=== PATIENT | female | born 1985 | race Caucasian/White ===

== ENCOUNTER 2018-12-18 20:34 | Observation (INO) | payer OTHER ==
[~2018-12-18] VITALS: Ht 167.6 cm; Wt 103.5 kg
[~2018-12-18 20:34] MED LIST: AMLO5 PO; ASPI81CH PO; ATOR40TA PO; CARV25 PO; CLON.1; CLOP75 PO; DILT120; Diovan160 MG PO; EZET10; FURO80; Furosemide40 MG PO; LOSA50; NITR.4SL; POTCHL10ER PO; Percocet 10-321 EACH PO; ROXICODONE5 MG PO; SPIR50 PO
[2018-12-18 20:55] LABS: BASOPHILS ABSOLUTE AUTO 0.04 K/mm3 (0.00-0.23); BASOPHILS PERCENT AUTO 0 % (0-2); EOSINOPHILS ABSOLUTE AUTO 0.17 K/mm3 (0.00-0.68); EOSINOPHILS PERCENT AUTO 1 % (0-6); Hematocrit 49.6 % (33.0-51.0); Hemoglobin 16.1 g/dL (11.5-16.0); IMMATURE GRAN ABSOLUTE AUTO 0.04 K/mm3 (0.00-0.10); IMMATURE GRAN PERCENT AUTO 0 % (0-1); LYMPHOCYTES ABSOLUTE AUTO 1.84 K/mm3 (0.84-5.20); LYMPHOCYTES PERCENT AUTO 15 % (21-46); MONOCYTES ABSOLUTE AUTO 0.71 K/mm3 (0.16-1.47); MONOCYTES PERCENT AUTO 6 % (4-13); Mean Corpuscular HGB 28.3 pg (26.0-34.0); Mean Corpuscular HGB Conc 32.5 g/dL (31.5-36.5); Mean Corpuscular Volume 87 fL (80-100); Mean Platelet Volume 10.8 fL (9.1-12.4); NEUTROPHILS ABSOLUTE AUTO 9.74 K/mm3 (1.96-9.15); NEUTROPHILS PERCENT AUTO 78 % (41-73); Platelet Count 249 K/mm3 (150-400); RDW Coefficient Variation 13.9 % (11.7-14.2); Red Blood Cell Count 5.68 M/mm3 (3.80-5.20); White Blood Cell Count 12.54 K/mm3 (4.00-11.30)
[2018-12-18] MEDS ORDERED: UBID10 PO (21:11)
[2018-12-18 21:12] LABS: International Normalized Ratio 0.97; Prothrombin Time Results 10.3 Sec (9.7-11.5)
[2018-12-18 21:25] LABS: Alanine Aminotransfer (ALT/SGP 24 U/L (12-78); Albumin, Blood 3.6 g/dL (3.4-5.0); Albumin/Globulin Ratio 0.8 (0.8-1.8); Alk Phos 78 U/L (50-136); Anion Gap 8 mmol/L (6-16); Aspartate Aminotrans (AST/SGOT 16 U/L (12-37); Bilirubin, Total 0.3 mg/dL (0.1-1.0); Blood Urea Nitrogen 9 mg/dL (8-24); Bun/Creatinine Ratio 11.4 (12.0-20.0); CO2, Blood 25 mmol/L (21-32); Calcium, Blood 8.5 mg/dL (8.5-10.1); Chloride, Blood 107 mmol/L (98-108); Creatinine, Blood 0.79 mg/dL (0.40-1.00); Globulin, Blood 4.4 g/dL (2.2-4.0); Glomerular Filtration Rate >60 (60-); Glucose, Blood 97 mg/dL (70-99); Magnesium, Blood 2.3 mg/dL (1.6-2.4); Potassium, Blood 3.6 mmol/L (3.5-5.5); Sodium, Blood 140 mmol/L (136-145); Troponin I 0.018 ng/mL (0.000-0.040)
--- NOTE | 2018-12-19 01:00 | NUR ---
ARRIVAL TO ICU REPORT RECEIVED FROM QUEENIE GOLDSTEIN RN. PT ARRIVED TO ICU APPROX 2220. DR. BEAVERS CONSULTED. NEW ORDER FOR CTA AND NITRO DRIP. CTA COMPLETE, NITRO DRIP INITIATED. CHEST PAIN SLIGHTLY IMPROVED WITH DILAUDID, NO CHANGES WITH ADMINISTATRATION OF NITRO. DR. BEAVERS UPDATED ON PERSISTENT CHEST PAIN, DILAUDID ORDER CHANGED TO Q1H. VITALS STABLE WITH EXCEPTION OF ELEVATED BP. SEE FLOWSHEETS. SEE ADMISSION ASSESSMENT. PT CALLING APPROPRIATELY FOR NEEDS SINCE ARRIVAL TO UNIT.
[2018-12-19 03:24] LABS: BASOPHILS ABSOLUTE AUTO 0.04 K/mm3 (0.00-0.23); BASOPHILS PERCENT AUTO 0 % (0-2); EOSINOPHILS ABSOLUTE AUTO 0.19 K/mm3 (0.00-0.68); EOSINOPHILS PERCENT AUTO 2 % (0-6); Hemoglobin 14.3 g/dL (11.5-16.0); IMMATURE GRAN ABSOLUTE AUTO 0.03 K/mm3 (0.00-0.10); IMMATURE GRAN PERCENT AUTO 0 % (0-1); LYMPHOCYTES ABSOLUTE AUTO 2.86 K/mm3 (0.84-5.20); LYMPHOCYTES PERCENT AUTO 26 % (21-46); MONOCYTES ABSOLUTE AUTO 0.75 K/mm3 (0.16-1.47); MONOCYTES PERCENT AUTO 7 % (4-13); Mean Corpuscular HGB 27.9 pg (26.0-34.0); Mean Corpuscular HGB Conc 31.8 g/dL (31.5-36.5); Mean Corpuscular Volume 88 fL (80-100); Mean Platelet Volume 10.4 fL (9.1-12.4); NEUTROPHILS ABSOLUTE AUTO 7.36 K/mm3 (1.96-9.15); NEUTROPHILS PERCENT AUTO 65 % (41-73); Platelet Count 222 K/mm3 (150-400); RDW Coefficient Variation 13.9 % (11.7-14.2); Red Blood Cell Count 5.12 M/mm3 (3.80-5.20); White Blood Cell Count 11.23 K/mm3 (4.00-11.30)
[2018-12-19 03:43] LABS: Anion Gap 6 mmol/L (6-16); Blood Urea Nitrogen 8 mg/dL (8-24); CO2, Blood 26 mmol/L (21-32); Calcium, Blood 8.1 mg/dL (8.5-10.1); Chloride, Blood 108 mmol/L (98-108); Glomerular Filtration Rate >60 (60-); Glucose, Blood 91 mg/dL (70-99); Potassium, Blood 3.2 mmol/L (3.5-5.5); Sodium, Blood 140 mmol/L (136-145)
--- NOTE | 2018-12-19 04:00 | NUR ---
DR. NIMESH BEAVERS TO BEDSIDE FOR ASSESSMENT. UPDATED ON CONTINUED CHEST PAIN, PT'S REPORTED INTERMITTENT SWEATING, HIGH BLOOD PRESSURE AND LABS. NEW ORDER FOR LIPID PANEL LAB WITH NEXT TROPONIN AND ECHO TODAY. DR. BEAVERS ALSO REQUESTING COMPLETE RECORD FROM [facility]. DR. BEAVERS DISCUSSED POSSIBLE ANGIOGRAM TODAY IF NEEDED BUT EXPLAINS THE CONCERN SINCE PREVIOUS STENTS HAVE BEEN UNSUCCESSFUL IN PREVENTING RECURRENT PAIN. STATES HE WILL REASSESS AFTER REVIEWING RECORDS. PT INVOLVED IN CONVERSATION AND DENIES QUESTIONS AFTER CONVERSATION WITH .
--- NOTE | 2018-12-19 06:47 | NUR ---
SUMMARY SINCE DISCUSSION WITH DR. BEAVERS, PT HAS CONTINUED TO HAVE CHEST PAIN BUT ON NURSE ROUNDING HAS BEEN ASLEEP ON SEVERAL OCCASIONS. BLOOD PRESSURE IMPROVED. OTHERWISE, ASSESSMENTS UNCHANGED.
--- NOTE | 2018-12-19 07:42 | NUR ---
REPORT TO VIRGINIA VASQUEZ TO ASSUME CARE
--- NOTE | 2018-12-19 08:42 | NUR ---
PT BP NOTED TO BE SL ELEVATED SBP 140 SO NTG GTT INC TO 25 THEN 30 MCG. PT AWAKENED WITH SEVERE BROOKS AND NAUSES WITH CLIMBING BP. JAW, CHEST PAIN NOTED AT 04/25. IV DILAUDID GIVEN ALONG WITH AM MEDS AND THEN EXTRA DOSE OF DILAUDID AND AM MEDS GIVEN. PAIN REMAINS AT 02/22. ECHOCARDIAGRAM IN PROGRESS NOW. VS NOTED AND HR IS NSR 60'S. ABDIRASHID ARM IV TO BE D/C.
[2018-12-19 09:56] LABS: CHOL/HDL RATIO 3.8; Cholesterol 147 mg/dL (50-200); HDL Cholesterol 39 mg/dL (>39); LDL/HDL RATIO 1.8; Low Density Lipoprotein Chol 70 mg/dL (0-110); Triglycerides 188 mg/dL (30-140); Troponin I <0.015 ng/mL (0.000-0.040); Very Low Density Lipoprot Chol 37 mg/dL (6-28)
--- NOTE | 2018-12-19 10:47 | NUR ---
Echocardiogram completed.
--- NOTE | 2018-12-19 12:27 | NUR ---
PT L JAW PAIN REOCCURED AND MEDICATED FOR PAIN WITH MINIMAL RELIEF. VS NOTED AND NO CHEST PAIN AT THIS TIME.
[2018-12-19 12:52] LABS: U Amphetamine Screen Not Detected; U Barbituate Screen Not Detected; U Methamphetamine Screen Not Detected
[2018-12-19 12:53] LABS: U Benzodiazapine Screen DETECTED; U Buprenorphine Screen Not Detected; U Cannabinoids Screen Not Detected; U Cocaine Screen Not Detected; U Methadone Screen Not Detected; U Opiates Screen DETECTED; U Oxycodone Screen DETECTED; U Phencyclidine Screen Not Detected; U Propoxyphene Screen Not Detected
--- NOTE | 2018-12-19 17:57 | NUR ---
PT SEEMS TO BE GETTING SOME MUCH NEEDED REST. ATE SUPPER W/O DISTRESS AND TAKING LIQUIDS. PT HAS HAD CHEST PAIN TODAY BUT MOSTLY L JAW PAIN THAT IS UNCHHANGED WITH OR W/O NTG GTT THAT WAS STOPPED AT APPROX. 1415.
--- NOTE | 2018-12-19 20:15 | NUR ---
CARE ASSUMED REPORT RECEIVED, CARE ASSUMED AT 1900. AT CHANGE OF SHIFT PT ASLEEP. BP ELEVATED. OTHERWISE VITALS STABLE. CALLED INTO ROOM BY PT, REPORTING SHE WAS WOKEN BY PAIN. BP CONTINUES TO BE ELEVATED. MEDICATED WITH DILAUDID AND EVENING BLOOD PRESSURE MEDS. PT PROVIDED WITH SNACK PER REQUEST. SEE SHIFT ASSESSMENT, VITALS FLOWSHEET.
--- NOTE | 2018-12-20 06:15 | NUR ---
SUMMARY VITALS STABLE THROUGHOUT SHIFT. ASSESSMENT UNCHANGED. PT REPORTS JAW PAIN CONSTANT BUT HAS EPISODES THAT ARE MORE SEVERE AND REPORTS ALSO FEELING SHORT OF BREATH AND DIAPHORETIC WITH THESE EPISODES. PT MEDICATED UPON REQUEST. LAST NIGHT OFFERED PT PERCOCET TO ENCOURAGE LONGER LASTING RELIEF AND PT STATED SHE THOUGHT IT WOULDN'T BE EFFECTIVE BUT THAT SHE WOULD TRY IT. AFTER ADMINSTRATION OF PERCOCET AND DILAUDID AROUND 2230 PT SLEPT FOR SEVERAL HOURS, THE MOST SHE HAS SINCE SHE'S BEEN HERE. PT MEDICATED ONCE MORE AROUND 0200 FOR ONE OF THESE EPISODES WITH DILAUDID AND HAS SLEPT SINCE THEN. PT HAS CALLED APPROPRIATELY FOR NEEDS.
--- NOTE | 2018-12-20 07:07 | NUR ---
REPORT TO VIRGINIA VASQUEZ TO ASSUME CARE
--- NOTE | 2018-12-20 10:29 | NUR ---
2036 PT CALLED FOR ASSISTANCE WITH PAIN SHE IS HAVING L JAW AND CHEST PAIN THAT IS 9-10/10. PT STATES THAT WITH PO MEDS LAST NOC AND IV THAT PAIN WAS SL IMPORVED, HOWEVER SHE IS C/O PAIN THAT IS SAME IN CHARACTER LAST 24 HOURS BUT NO DIAPHORESIS OR SOB. BP IS ELEVATED AND DR LACEY NOTIFIED OF THIS AND CHARACTER OF CHEST PAIN.
--- NOTE | 2018-12-20 12:58 | NUR ---
DISCHARGE REVIEWED DISCHARGE INSTRUCTIONS WITH PT. SHE DISPLAYS UNDERSTANDING. IV REMOVED. PT AMBULATED TO EXIT WITH MOTHER.
== END 2018-12-20 12:58 | disposition home or self-care (01) ==
LOC: ER 20:34 → ICUW 20:35
PROVIDERS: Emergency Medicine; ADMIT Family Medicine
DX: R07.9 Chest pain, unspecified (principal); I25.10 Atherosclerotic heart disease of native coronary artery without angina pectoris; I10 Essential (primary) hypertension; D72.829 Elevated white blood cell count, unspecified; D64.9 Anemia, unspecified; Z88.8 Allergy status to other drugs, medicaments and biological substances; Z95.5 Presence of coronary angioplasty implant and graft; Z88.0 Allergy status to penicillin; Z88.5 Allergy status to narcotic agent; Z88.6 Allergy status to analgesic agent; Z79.82 Long term (current) use of aspirin; Z79.899 Other long term (current) drug therapy; Z87.891 Personal history of nicotine dependence
CPT/HCPCS: 36415; 71045; 71275; 74175; 80048; 80053; 80061; 83735; 84484; 85025; 85610; 85730; 93005; 93010; 93308; 93321; 96374; 96376; 99285-25; J1170; J1650; Q9967

== ENCOUNTER 2019-03-06 22:35 | Observation (INO) | payer OTHER ==
[~2019-03-06] VITALS: Ht 167.6 cm; Wt 98.3 kg
[~2019-03-06 22:35] MED LIST changes: +UBID10 PO
[2019-03-06] MEDS ORDERED: NITR.4SL SL (23:06)
[2019-03-06 23:11] LABS: BASOPHILS ABSOLUTE AUTO 0.05 K/mm3 (0.00-0.23); BASOPHILS PERCENT AUTO 1 % (0-2); EOSINOPHILS ABSOLUTE AUTO 0.22 K/mm3 (0.00-0.68); EOSINOPHILS PERCENT AUTO 2 % (0-6); Hematocrit 47.6 % (33.0-51.0); Hemoglobin 15.2 g/dL (11.5-16.0); IMMATURE GRAN ABSOLUTE AUTO 0.04 K/mm3 (0.00-0.10); IMMATURE GRAN PERCENT AUTO 0 % (0-1); LYMPHOCYTES ABSOLUTE AUTO 2.19 K/mm3 (0.84-5.20); LYMPHOCYTES PERCENT AUTO 20 % (21-46); MONOCYTES ABSOLUTE AUTO 0.87 K/mm3 (0.16-1.47); MONOCYTES PERCENT AUTO 8 % (4-13); Mean Corpuscular HGB Conc 31.9 g/dL (31.5-36.5); Mean Corpuscular Volume 88 fL (80-100); Mean Platelet Volume 10.6 fL (9.1-12.4); NEUTROPHILS ABSOLUTE AUTO 7.65 K/mm3 (1.96-9.15); NEUTROPHILS PERCENT AUTO 69 % (41-73); Platelet Count 258 K/mm3 (150-400); RDW Coefficient Variation 14.6 % (11.7-14.2); RDW Standard Deviation 46.6 fL (35.1-46.3); Red Blood Cell Count 5.42 M/mm3 (3.80-5.20); White Blood Cell Count 11.02 K/mm3 (4.00-11.30)
[2019-03-06 23:31] LABS: Alanine Aminotransfer (ALT/SGP 20 U/L (12-78); Albumin, Blood 3.7 g/dL (3.4-5.0); Albumin/Globulin Ratio 0.8 (0.8-1.8); Alk Phos 80 U/L (50-136); Anion Gap 6 mmol/L (6-16); Aspartate Aminotrans (AST/SGOT 14 U/L (12-37); Bilirubin, Total 0.5 mg/dL (0.1-1.0); Blood Urea Nitrogen 12 mg/dL (8-24); Bun/Creatinine Ratio 12.5 (12.0-20.0); CO2, Blood 25 mmol/L (21-32); Calcium, Blood 9.8 mg/dL (8.5-10.1); Chloride, Blood 108 mmol/L (98-108); Creatinine, Blood 0.96 mg/dL (0.40-1.00); Globulin, Blood 4.5 g/dL (2.2-4.0); Glomerular Filtration Rate >60 (60-); Glucose, Blood 89 mg/dL (70-99); Potassium, Blood 3.5 mmol/L (3.5-5.5); Sodium, Blood 139 mmol/L (136-145); Total Protein, Blood 8.2 g/dL (6.4-8.2); Troponin I <0.015 ng/mL (0.000-0.040)
--- NOTE | 2019-03-07 03:00 | NUR ---
PT ADMITTED TO ICU-6 FROM ER. PT W NTG INFUSING AT 50MCG/MIN ON ARRIVAL, PT CO PAIN IN CHEST BACK & L ARM, ALSO JAW, NECK & CO HEADACHE. BP IS ELEVATED, AND NTG WAS INCREASED TO 70MCG/MIN. PT ALSO MED W LABETALOL 10MG. DR WELLS NOTIFIED THAT PT STATES SHE TOOK 8 TYLENOL TABS YESTERDAY & NOT ABLE TO TAKE MORE TYLENOL. PT IS ALLERGIC TO TORADOL. ORDER REC'D FOR MORPHINE. PT HAS BEEN MED. PT STATES MINIMAL RELIEF, IMPROVES PAIN TO 9/10. DENIES NAUSEA, NO DIAPHORESIS. MONITOR SHOWS SR, NO ECTOPY.
--- NOTE | 2019-03-07 05:30 | NUR ---
BP IS IMPROVED, NTG CONT AT 70MCG. PT HAS BEEN MED W MS 2MGX2. LIGHTS OFF, CURTAINS DRAWN, PT IS RESTING QUIETLY. WHEN AWAKE, CONT TO CO CHEST PAIN 04/25. NO VOID THIS SHIFT. CONT TO MONITOR.
[2019-03-07 07:03] LABS: Hematocrit 40.7 % (33.0-51.0); Hemoglobin 12.9 g/dL (11.5-16.0); Mean Corpuscular HGB 28.2 pg (26.0-34.0); Mean Corpuscular HGB Conc 31.7 g/dL (31.5-36.5); Mean Corpuscular Volume 89 fL (80-100); Mean Platelet Volume 10.3 fL (9.1-12.4); Platelet Count 210 K/mm3 (150-400); RDW Coefficient Variation 14.6 % (11.7-14.2); RDW Standard Deviation 46.9 fL (35.1-46.3); Red Blood Cell Count 4.58 M/mm3 (3.80-5.20); White Blood Cell Count 9.34 K/mm3 (4.00-11.30)
--- NOTE | 2019-03-07 07:30 | NUR ---
BEGINNING OF SHIFT Assumed care at 0700 with Reanna COLEMAN. Bedside report received from Betzy COLEMAN. Pt on nitro drip at 70 mcg/min. SBP 160s-170s. Pt resting in bed, states chest pain 10/10 that has not been alleviated despite all interventions.
[2019-03-07 07:36] LABS: Alanine Aminotransfer (ALT/SGP 18 U/L (12-78); Albumin, Blood 3.2 g/dL (3.4-5.0); Albumin/Globulin Ratio 0.9 (0.8-1.8); Alk Phos 61 U/L (50-136); Anion Gap 5 mmol/L (6-16); Aspartate Aminotrans (AST/SGOT 13 U/L (12-37); Bilirubin, Total 0.5 mg/dL (0.1-1.0); Blood Urea Nitrogen 12 mg/dL (8-24); Bun/Creatinine Ratio 12.1 (12.0-20.0); CO2, Blood 25 mmol/L (21-32); Calcium, Blood 8.6 mg/dL (8.5-10.1); Chloride, Blood 108 mmol/L (98-108); Creatinine, Blood 0.99 mg/dL (0.40-1.00); Globulin, Blood 3.7 g/dL (2.2-4.0); Glomerular Filtration Rate >60 (60-); Glucose, Blood 86 mg/dL (70-99); Potassium, Blood 3.2 mmol/L (3.5-5.5); Sodium, Blood 138 mmol/L (136-145); Total Protein, Blood 6.9 g/dL (6.4-8.2); Troponin I 0.019 ng/mL (0.000-0.040)
--- NOTE | 2019-03-07 10:19 | NUR ---
UPDATE AM meds administerd. SBP 140s-150s. Pt asleep in bed. Nitro drip titrated down to 60 mcg/min.
--- NOTE | 2019-03-07 11:43 | NUR ---
UPDATE Nitro drip down to 30 mcg/min. SBP 130s-140s. Pt states she missed taking her medications for one day, because the pharmacy had not yet refilled them. Pt states she constantly has chest pain at baseline. Pt states concern over jaw pain, and states "I only have jaw pain when I have blockages." Educated pt on nitro drip and action for chest pain. Pt states "Nitro doesn't do anything for me. I've taken too much of it. I've done the patches, pills; I was on isosorbide". Plan to titrate nitro drip off. Pt verbalizes agreement and states "All nitro does is make me sick". Pt states jaw pain started while she was camping during the previous weekend, prior to her missing a dose of medication.
[2019-03-07 13:15] LABS: U Amphetamine Screen Not Detected; U Barbituate Screen Not Detected; U Methamphetamine Screen Not Detected
[2019-03-07 13:16] LABS: U Benzodiazapine Screen DETECTED; U Buprenorphine Screen Not Detected; U Cannabinoids Screen Not Detected; U Cocaine Screen Not Detected; U Methadone Screen Not Detected; U Opiates Screen DETECTED; U Oxycodone Screen DETECTED; U Phencyclidine Screen Not Detected; U Propoxyphene Screen Not Detected
--- NOTE | 2019-03-07 13:35 | NUR ---
Initial Visit: Palliative Care Consult for Cardiac, Psych/Soc/Moral Distress. Pt is A&O and reports 10/10 pain in her jaw, chest, and left arm. She reports current home pain regimen of hydrocodone and nitroquik does not manage pain. Pt reports 3/7 dyspnea at rest and reports worsening SOB with exertion. Pt denies anxiety but non verbal indicators of anxiety noted, possibly from pain. Pt reports managing her anxiety through meditation. Encouraged Pt to express fears and concerns. Listened as Pt expressed frustration regarding not finding relief from symptoms and feels needing more answers. She reports she has not been able to get back in with her chief dog license inspector Dr Hogan and office does not return her phone calls. She also reports [facility] has not been beneficial in helping find answers. Listened as she explained having relief for only a few months after bypass surgery. Pt reports being told symptoms can be contributed to her vessels marysol and expanding constantly. Pt reports completing cardiac rehab 4 times and last was 1 year ago. She reports heart transplant has been briefly mentioned in the past but was told she may not be a candidate due to RH factor. Pt reports frustration with not finding answers and this RN validated her frustrations. Pt lives is raising a child and living with her parents in [place]. She states her goals are finding answers to her heart problem with symptom management. Called and spoke with Dr Chapa and reported little benefit from nitroquick and discussed other options. Palliative Care will remain available.
--- NOTE | 2019-03-07 17:06 | NUR ---
Pal Spiritual Care inital note: Nat was alone in room and talkative. She expressed frustration and fear that an answer for her chronic pain is elusive. She denies mistreating her body with drugs or alcohol. It appears seeking medical treatment has become a burden. "It has taken over my entire life." But she is not ready to "give up." Nat tells me she is tired of fighting for medical attention/treatments, and she feels physicians don't beleive her because of her age. It appeared to do Nat some good to be heard and understood. She is non-nondenominational. She began to become tearful, but abruptly stopped herself. When asked why she did this, she told me that she was told by a physician not to get too sad, angry, frustrated b/c these emotions affect her heart. "I have trained myself to feel nothing." Clearly Nat would benefit from on-going emotional counseling. I will continue to see Nat as schedule permits.
--- NOTE | 2019-03-07 17:35 | NUR ---
SHIFT SUMMARY Case discussed with palliative care. Hans RN and Naya RN in to see patient. No acute changes t/o shift. Pt continues to report unrelieved pain. Dr Chapa in to see pt this afternoon. EKG obtained to compare with EKG done on admit. Reviewed with Dr Norman. Pt told Dr Chapa she would like to be seen by sugarcane research technician. Consult ordered. Pt okay for PCU status per Dr Chapa. Dr Eaton in to see pt shortly afterwards. Report from most recent coronary angiogram received from [facility]. Report reviewed by Dr Durand. Images from cath request. Unable to be digitally sent. Will be delivered by facility tomorrow. Dr Eaton aware. No events per youth nutritional monitor. Pt on room air. Will continue to closely monitor until care handoff and bedside report with oncoming RN.
[2019-03-07 19:21] LABS: CPK Creatine Kinase 34 U/L (26-193); Troponin I <0.015 ng/mL (0.000-0.040)
--- NOTE | 2019-03-07 19:44 | NUR ---
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
--- NOTE | 2019-03-08 05:53 | NUR ---
SHIFT SUMMARY: PT HAS BEEN MEDICATED NUMEROUS TIMES FOR PAIN. THE LAST TIME WAS WITH DILAUDID WHICH HELD THE PAIN DOWN SO SHE COULD REST A BIT. STATES THAT SHE SLEPT OFF AND ON. VSS. HAS NOT NEEDED ANY PRN MEDICATION FOR HTN.
--- NOTE | 2019-03-08 09:00 | NUR ---
BEGINNING OF SHIFT Assumed care of pt at 0700 with Brooke COLEMAN. Report received from Radha COLEMAN. Pt sleeping in bed at time of report. Plan of care discussed with Dr Eaton this AM. Films from angiogram to be physically delivered to facility this shift, from [facility]. Plan of care discussed with Dr Nicholas. No new orders at this time. SpO2 95% or greater RA. SB-SR per monitor with HR averaging between 55 and 65. Bed in lowest position. Call light in reach. Pt denies need at this time.
--- NOTE | 2019-03-08 12:25 | NUR ---
UPDATE Medical records request discussed with Guerrero Hastings. Films to be received early this afternoon.
--- NOTE | 2019-03-08 12:28 | NUR ---
MEDICATION COMPLIANCE During AM med pass, pt states "I haven't taken my water pills in over a month. I haven't needed them." This RN inquires if the diuretics are prescribed to be taken as needed. Pt states "No. But I haven't needed them." This RN educates pt on importance of taking diuretics. She states "Well I haven't had any swelling". This RN educated about shortness of breath and CHF exacerbation. Pt states "Well I haven't been able to get them from my pharmacy". She also states "I was taking samples". Pt educated that shortness of breath and chest pain are possible symptoms of CHF exacerbation. Educated pt that BNP was elevated on admit. Pt states "My BNP is always in the 700s, I'm told." Pt again states difficulty obtaining diuretics from pharmacy and details changing pharmacies due to this issue. Educated on necessity for diuresis with CHF exacerbation and reminded pt that she states her EF has been as low as 25%.
--- NOTE | 2019-03-08 14:15 | NUR ---
ELAYNE COLEMAN TO ASSUME CARE Report given. Pt resting in room at this time.
--- NOTE | 2019-03-08 14:21 | NUR ---
RECEIVED REPORT FROM AMISHA KRISHNA RN, ASSUMED CARE, PATIENT IS RESTING QUIETLY IN ROOM, CALL LIGHT IN REACH, WILL CONTINUE TO MONITOR.
--- NOTE | 2019-03-08 16:10 | NUR ---
Patient wa given written discharge orders from Dr Nicholas. She was medicated 10/ right chest pain. She got dresssed and we reviewed discharge and follow up referral. She returned understanding of information and stated she will follow up with marti tomorrow. Her IV removed intact and site WNL's. She was taken to vehicle by wheelchair and went home POV.
== END 2019-03-08 16:00 | disposition home or self-care (01) ==
LOC: ER 22:35 → ICUW 22:36 → ER 03-07 00:10 → ICUE 03-07 00:10 → ICUW 03-07 00:10 → ICUE 03-07 01:30 → ICUW 03-07 01:30 → ICUE 03-07 01:31
PROVIDERS: Physician Assistant; ADMIT Internal Medicine
DX: R07.89 Other chest pain (principal); I25.10 Atherosclerotic heart disease of native coronary artery without angina pectoris; I11.0 Hypertensive heart disease with heart failure; I50.22 Chronic systolic (congestive) heart failure; I16.1 Hypertensive emergency; E66.9 Obesity, unspecified; I25.5 Ischemic cardiomyopathy; I25.2 Old myocardial infarction; Z95.1 Presence of aortocoronary bypass graft; Z95.5 Presence of coronary angioplasty implant and graft; Z79.899 Other long term (current) drug therapy; Z68.33 Body mass index [BMI] 33.0-33.9, adult; Z79.82 Long term (current) use of aspirin; Z79.891 Long term (current) use of opiate analgesic; Z86.73 Personal history of transient ischemic attack (TIA), and cerebral infarction without residual deficits; Z90.49 Acquired absence of other specified parts of digestive tract; Z91.19 Patient's noncompliance with other medical treatment and regimen; Z88.8 Allergy status to other drugs, medicaments and biological substances; Z88.0 Allergy status to penicillin; Z88.5 Allergy status to narcotic agent
CPT/HCPCS: 36415; 71045; 80053; 82550; 83880; 84484; 85025; 85027; 93005; 93010; 93308; 93321; 96365; 96372; 96375; 96376; 99285-25; G0378; J1170; J1650; J2270; J3010

== ENCOUNTER 2019-04-02 12:49 | Emergency (ER) | payer OTHER ==
[~2019-04-02] VITALS: Ht 162.6 cm; Wt 74.8 kg
[~2019-04-02 12:49] MED LIST changes: +NITR.4SL SL
[2019-04-02] MEDS ORDERED: OMEPRAZOLE20 MG PO (13:35)
[2019-04-02 13:37] LABS: BASOPHILS ABSOLUTE AUTO 0.03 K/mm3 (0.00-0.23); BASOPHILS PERCENT AUTO 0 % (0-2); EOSINOPHILS ABSOLUTE AUTO 0.25 K/mm3 (0.00-0.68); EOSINOPHILS PERCENT AUTO 2 % (0-6); Hematocrit 47.8 % (33.0-51.0); Hemoglobin 15.5 g/dL (11.5-16.0); IMMATURE GRAN ABSOLUTE AUTO 0.03 K/mm3 (0.00-0.10); IMMATURE GRAN PERCENT AUTO 0 % (0-1); LYMPHOCYTES ABSOLUTE AUTO 1.95 K/mm3 (0.84-5.20); LYMPHOCYTES PERCENT AUTO 18 % (21-46); MONOCYTES ABSOLUTE AUTO 0.85 K/mm3 (0.16-1.47); MONOCYTES PERCENT AUTO 8 % (4-13); Mean Corpuscular HGB 28.2 pg (26.0-34.0); Mean Corpuscular HGB Conc 32.4 g/dL (31.5-36.5); Mean Corpuscular Volume 87 fL (80-100); NEUTROPHILS ABSOLUTE AUTO 7.72 K/mm3 (1.96-9.15); NEUTROPHILS PERCENT AUTO 71 % (41-73); RDW Coefficient Variation 14.3 % (11.7-14.2); Red Blood Cell Count 5.49 M/mm3 (3.80-5.20); White Blood Cell Count 10.83 K/mm3 (4.00-11.30)
[2019-04-02 13:40] LABS: Mean Platelet Volume 10.9 fL (9.1-12.4); Platelet Count 227 K/mm3 (150-400)
[2019-04-02 14:03] LABS: Alanine Aminotransfer (ALT/SGP 24 U/L (12-78); Albumin, Blood 3.6 g/dL (3.4-5.0); Albumin/Globulin Ratio 0.8 (0.8-1.8); Alk Phos 77 U/L (50-136); Anion Gap 5 mmol/L (6-16); Aspartate Aminotrans (AST/SGOT 27 U/L (12-37); Bilirubin, Total 0.6 mg/dL (0.1-1.0); Blood Urea Nitrogen 10 mg/dL (8-24); Bun/Creatinine Ratio 11.6 (12.0-20.0); CO2, Blood 26 mmol/L (21-32); Chloride, Blood 106 mmol/L (98-108); Creatinine, Blood 0.86 mg/dL (0.40-1.00); Globulin, Blood 4.5 g/dL (2.2-4.0); Glomerular Filtration Rate >60 (60-); Glucose, Blood 88 mg/dL (70-99); Potassium, Blood 3.9 mmol/L (3.5-5.5); Sodium, Blood 137 mmol/L (136-145); Total Protein, Blood 8.1 g/dL (6.4-8.2); Troponin I <0.015 ng/mL (0.000-0.040)
== END 2019-04-02 17:10 | disposition home or self-care (01) ==
LOC: ER 12:49
PROVIDERS: Emergency Medicine
DX: R07.89 Other chest pain (principal); I11.0 Hypertensive heart disease with heart failure; I50.20 Unspecified systolic (congestive) heart failure; I25.10 Atherosclerotic heart disease of native coronary artery without angina pectoris; I25.2 Old myocardial infarction; F41.9 Anxiety disorder, unspecified; Z87.891 Personal history of nicotine dependence; Z95.1 Presence of aortocoronary bypass graft; Z88.6 Allergy status to analgesic agent; Z88.0 Allergy status to penicillin; Z79.02 Long term (current) use of antithrombotics/antiplatelets; Z79.891 Long term (current) use of opiate analgesic
CPT/HCPCS: 36415; 71046; 80053; 84484; 85025; 93005; 93010; 96374; 96375; 96376; 99285-25; C9113; J1170

== ENCOUNTER 2019-12-10 12:54 | Emergency (ER) | payer OTHER ==
[~2019-12-10] VITALS: Ht 167.6 cm; Wt 102.1 kg
[~2019-12-10 12:54] MED LIST changes: +OMEPRAZOLE20 MG PO
[2019-12-10 13:40] LABS: BASOPHILS ABSOLUTE AUTO 0.06 K/mm3 (0.00-0.23); BASOPHILS PERCENT AUTO 1 % (0-2); EOSINOPHILS ABSOLUTE AUTO 0.17 K/mm3 (0.00-0.68); EOSINOPHILS PERCENT AUTO 1 % (0-6); Hematocrit 50.2 % (33.0-51.0); IMMATURE GRAN ABSOLUTE AUTO 0.03 K/mm3 (0.00-0.10); IMMATURE GRAN PERCENT AUTO 0 % (0-1); LYMPHOCYTES PERCENT AUTO 18 % (21-46); MONOCYTES ABSOLUTE AUTO 0.83 K/mm3 (0.16-1.47); MONOCYTES PERCENT AUTO 7 % (4-13); Mean Corpuscular HGB 28.1 pg (26.0-34.0); Mean Corpuscular HGB Conc 31.9 g/dL (31.5-36.5); Mean Corpuscular Volume 88 fL (80-100); Mean Platelet Volume 10.3 fL (9.1-12.4); NEUTROPHILS ABSOLUTE AUTO 8.79 K/mm3 (1.96-9.15); NEUTROPHILS PERCENT AUTO 73 % (41-73); Platelet Count 226 K/mm3 (150-400); RDW Coefficient Variation 14.1 % (11.7-14.2); RDW Standard Deviation 45.4 fL (35.1-46.3); Red Blood Cell Count 5.69 M/mm3 (3.80-5.20); White Blood Cell Count 11.98 K/mm3 (4.00-11.30)
[2019-12-10 13:55] LABS: Anion Gap 7 mmol/L (6-16); Blood Urea Nitrogen 11 mg/dL (8-24); Bun/Creatinine Ratio 12.3 (12.0-20.0); CO2, Blood 22 mmol/L (21-32); Chloride, Blood 107 mmol/L (98-108); Creatinine, Blood 0.89 mg/dL (0.40-1.00); Glomerular Filtration Rate >60 (60-); Glucose, Blood 104 mg/dL (70-99); Sodium, Blood 136 mmol/L (136-145); Troponin I <0.015 ng/mL (0.000-0.040)
== END 2019-12-10 15:48 | disposition home or self-care (01) ==
LOC: ER 12:54
PROVIDERS: Emergency Medicine
DX: I16.0 Hypertensive urgency (principal); F41.9 Anxiety disorder, unspecified; I11.0 Hypertensive heart disease with heart failure; I50.9 Heart failure, unspecified; I25.2 Old myocardial infarction; I25.10 Atherosclerotic heart disease of native coronary artery without angina pectoris; Z88.8 Allergy status to other drugs, medicaments and biological substances; Z88.0 Allergy status to penicillin; Z79.899 Other long term (current) drug therapy; Z79.02 Long term (current) use of antithrombotics/antiplatelets; Z86.73 Personal history of transient ischemic attack (TIA), and cerebral infarction without residual deficits; Z87.891 Personal history of nicotine dependence
CPT/HCPCS: 36415; 71045; 80048; 83880; 84484; 85025; 93005; 93010; 96374; 96376; 99285-25; J1170

== ENCOUNTER 2020-04-24 13:51 | Observation (INO) | payer OTHER ==
[~2020-04-24] VITALS: Ht 167.6 cm; Wt 103.0 kg
[~2020-04-24 13:51] MED LIST changes: +AMLODIPINE BESYL5 MG PO; +Acetaminophen325 M1 PO; +Aspir 8181 MG PO; +Ativan1 MG PO; +DOXY100 PO; +FAMO20 PO; +Lamotrigine25 MG PO; +METR500 PO; +PLAVIX75 MG PO
[2020-04-24] MEDS ORDERED: AMLO5 PO (14:08)
[2020-04-24] MEDS ORDERED: LAMO25 (14:09)
[2020-04-24 14:22] LABS: BASOPHILS ABSOLUTE AUTO 0.03 K/mm3 (0.00-0.23); BASOPHILS PERCENT AUTO 0 % (0-2); EOSINOPHILS ABSOLUTE AUTO 0.15 K/mm3 (0.00-0.68); EOSINOPHILS PERCENT AUTO 1 % (0-6); IMMATURE GRAN ABSOLUTE AUTO 0.03 K/mm3 (0.00-0.10); IMMATURE GRAN PERCENT AUTO 0 % (0-1); LYMPHOCYTES PERCENT AUTO 13 % (21-46); MONOCYTES PERCENT AUTO 7 % (4-13); Mean Corpuscular HGB 28.2 pg (26.0-34.0); Mean Corpuscular HGB Conc 31.5 g/dL (31.5-36.5); Mean Corpuscular Volume 90 fL (80-100); Mean Platelet Volume 10.8 fL (9.1-12.4); NEUTROPHILS ABSOLUTE AUTO 8.46 K/mm3 (1.96-9.15); NEUTROPHILS PERCENT AUTO 79 % (41-73); Platelet Count 213 K/mm3 (150-400); RDW Coefficient Variation 13.9 % (11.7-14.2); Red Blood Cell Count 6.03 M/mm3 (3.80-5.20); White Blood Cell Count 10.77 K/mm3 (4.00-11.30)
[2020-04-24 14:37] LABS: Prothrombin Time Results 10.7 Sec (9.7-11.5)
[2020-04-24 14:48] LABS: Alanine Aminotransfer (ALT/SGP 27 U/L (12-78); Albumin, Blood 3.9 g/dL (3.4-5.0); Albumin/Globulin Ratio 0.8 (0.8-1.8); Alk Phos 82 U/L (50-136); Anion Gap 7 mmol/L (6-16); Aspartate Aminotrans (AST/SGOT 16 U/L (12-37); Bilirubin, Total 0.5 mg/dL (0.1-1.0); Blood Urea Nitrogen 12 mg/dL (8-24); Bun/Creatinine Ratio 12.6 (12.0-20.0); CO2, Blood 23 mmol/L (21-32); Calcium, Blood 9.5 mg/dL (8.5-10.1); Chloride, Blood 107 mmol/L (98-108); Creatinine, Blood 0.95 mg/dL (0.40-1.00); Globulin, Blood 4.9 g/dL (2.2-4.0); Glomerular Filtration Rate >60 (60-); Glucose, Blood 107 mg/dL (70-99); Potassium, Blood 4.8 mmol/L (3.5-5.5); Sodium, Blood 137 mmol/L (136-145); Total Protein, Blood 8.8 g/dL (6.4-8.2); Troponin I 0.026 ng/mL (0.000-0.040)
[2020-04-24] MEDS ORDERED: ISOSORBIDE MONO60 MG PO (16:27)
[2020-04-24] MEDS ORDERED: FUROSEMIDE20 MG PO (16:27)
[2020-04-24] MEDS ORDERED: Lamotrigine25 MG PO (16:28)
[2020-04-24] MEDS ORDERED: VALSARTAN160 MG PO (16:28)
[2020-04-24 18:29] LABS: Source, Urine Clean Catch
[2020-04-24 18:39] LABS: Bilirubin, Urine Neg (Neg); Blood, Urine Neg (Neg); Glucose Qualitative, Urine Neg (Neg); Ketones, Urine Neg (Neg); Leukocyte Esterase, Urine Neg (Neg); Nitrite, Urine Neg (Neg); Protein, Urine Neg (Neg); Specific Gravity, Urine 1.005 (1.003-1.022); Urobilinogen, Urine NORM (Normal)
[2020-04-24 18:54] LABS: Appearance, Urine Clear (Clear); Color, Urine Pale Yellow (P-Yellow); U Amphetamine Screen Not Detected; U Barbituate Screen Not Detected; U Benzodiazapine Screen Not Detected; U Buprenorphine Screen Not Detected; U Cannabinoids Screen Not Detected; U Cocaine Screen Not Detected; U Methadone Screen Not Detected; U Methamphetamine Screen Not Detected; U Opiates Screen Not Detected; U Oxycodone Screen DETECTED; U Phencyclidine Screen Not Detected; U Propoxyphene Screen Not Detected
--- NOTE | 2020-04-24 20:00 | NUR ---
RECEIVED REPORT FROM ANTHONY VU RN. PT TRANSPORTED TO MEDICAL FLOOR VIA GURNEY, TRANSFERRED SELF TO HOSPITAL BED. NO S/S ACUTE DISTRESS NOTED. PT VISIBLY FRUSTRATED REGARDING HER PAIN MANAGEMENT, DISCUSSED PT HOME PAIN MANAGEMENT REGIMEN. ORIENTED PT TO ROOM AND UNIT. CALL LIGHT, POSSESSIONS IN REACH. WILL SPEAK TO HOSPITALIST REGARDING PT'S HOME PAIN MANAGEMENT REGIMEN.
[2020-04-24] MEDS ORDERED: PERCOCET 10-321 EAC2 PO (20:08)
--- NOTE | 2020-04-24 20:20 | NUR ---
SPOKE TO DR. WELLS REGARDING PT'S HOME PAIN MANAGEMENT REGIMEN. ORDERS RECEIVED. CONTINUE TO MONITOR.
--- NOTE | 2020-04-24 20:44 | NUR ---
MEDICATED PT PER EMAR PERCOCET 10MG/325MG PER PT'S PAIN REGIME AT HOME. TAKES THIS DOSE EVERY FOUR HOURS FOR PAIN IN HER STERNUM AREA FROM A RECENT HEART SURGERY. PT STATES IT'S NOT HEALING PROPERLY AND HER DR PUT HER ON THIS PAIN REGIME. WILL MONITOR. CALL LT IN REACH.
[2020-04-24 22:53] LABS: CPK Creatine Kinase 45 U/L (26-193)
[2020-04-25 05:13] LABS: BASOPHILS ABSOLUTE AUTO 0.05 K/mm3 (0.00-0.23); BASOPHILS PERCENT AUTO 1 % (0-2); EOSINOPHILS ABSOLUTE AUTO 0.21 K/mm3 (0.00-0.68); EOSINOPHILS PERCENT AUTO 2 % (0-6); Hematocrit 46.1 % (33.0-51.0); Hemoglobin 14.8 g/dL (11.5-16.0); IMMATURE GRAN ABSOLUTE AUTO 0.03 K/mm3 (0.00-0.10); IMMATURE GRAN PERCENT AUTO 0 % (0-1); LYMPHOCYTES ABSOLUTE AUTO 2.16 K/mm3 (0.84-5.20); LYMPHOCYTES PERCENT AUTO 20 % (21-46); MONOCYTES PERCENT AUTO 10 % (4-13); Mean Corpuscular HGB 28.7 pg (26.0-34.0); Mean Corpuscular HGB Conc 32.1 g/dL (31.5-36.5); Mean Corpuscular Volume 90 fL (80-100); Mean Platelet Volume 11.1 fL (9.1-12.4); NEUTROPHILS ABSOLUTE AUTO 7.49 K/mm3 (1.96-9.15); NEUTROPHILS PERCENT AUTO 68 % (41-73); Platelet Count 209 K/mm3 (150-400); RDW Coefficient Variation 13.9 % (11.7-14.2); RDW Standard Deviation 46.2 fL (35.1-46.3); Red Blood Cell Count 5.15 M/mm3 (3.80-5.20); White Blood Cell Count 11.04 K/mm3 (4.00-11.30)
[2020-04-25 05:44] LABS: Troponin I 0.028 ng/mL (0.000-0.040)
[2020-04-25 05:48] LABS: Alanine Aminotransfer (ALT/SGP 16 U/L (12-78); Albumin, Blood 3.5 g/dL (3.4-5.0); Albumin/Globulin Ratio 0.9 (0.8-1.8); Alk Phos 71 U/L (50-136); Anion Gap 6 mmol/L (6-16); Aspartate Aminotrans (AST/SGOT 6 U/L (12-37); Bilirubin, Total 0.4 mg/dL (0.1-1.0); Blood Urea Nitrogen 13 mg/dL (8-24); Bun/Creatinine Ratio 13.4 (12.0-20.0); CO2, Blood 25 mmol/L (21-32); Calcium, Blood 8.6 mg/dL (8.5-10.1); Chloride, Blood 107 mmol/L (98-108); Creatinine, Blood 0.97 mg/dL (0.40-1.00); Globulin, Blood 3.8 g/dL (2.2-4.0); Glomerular Filtration Rate >60 (60-); Glucose, Blood 94 mg/dL (70-99); Potassium, Blood 3.5 mmol/L (3.5-5.5); Sodium, Blood 138 mmol/L (136-145); Total Protein, Blood 7.3 g/dL (6.4-8.2)
--- NOTE | 2020-04-25 06:44 | NUR ---
SHIFT SUMMARY PT ASLEEP AT THIS TIME, WAS UP MOST OF THE NIGHT SINCE ARRIVAL TO MEDICAL FLOOR. NEURO STATUS REMAINS AT BASELINE, NO ACUTE CHANGES NOTED. VSS. RESPS EVEN AND UNLABORED. PAIN MANAGED PER HOME REGIME, PT REPORTED INCREASED PAIN RELIEF. WAS MONITORED EVERY 1-2 HOURS WITH NEEDS MET. DENIES NEEDS AT THIS TIME. CALL LIGHT, POSSESSIONS IN REACH, WILL CONTINUE TO MONITOR UNTIL DAY RN ASSUMES CARE.
--- NOTE | 2020-04-25 09:20 | NUR ---
RECEIVED CALL FROM IMAGING THAT PT WILL BE TAKEN DOWN FOR MRI. PT STATED SHE GETS CLAUSTROPHOBIC. CALLED DR AT 0916 AND RECEIVE A ONE TIME DOSE OF 1MG ATIVAN IV.
--- NOTE | 2020-04-25 14:48 | NUR ---
PT HAS HEADACHE RATING 10/10. PT STATES HEADACHE IS STABBING AND THROBING. OFFERED COLD COMPRESS AND CALLED DR AT 1440. DR SAID HE WOULD REVIEW CHART.
--- NOTE | 2020-04-25 17:44 | NUR ---
BP & COREG PT BP THIS AFTERNOON WAS LOWER THAN USUAL AT 107/56. DR. MARTIN NOTIFED AND ORDERED TO CHANGE DOSE FROM 50MG TO 25MG BID DAILY. PT GIVE NEW DOSE AND MEDICATED FOR PAIN.
--- NOTE | 2020-04-25 18:41 | NUR ---
SHIFT SUMMARY PT IS A&O. PT IS ABLE TO AMBULATE IN ROOM. RECEIVED MRI TODAY. PT HAS HAD A HEADACHE DURING SHIFT. DR WAS NOTIFIED AND MEDICATION FOR HEADACHE RECEIVED. OFFERED NON-PHARMILOGICAL MEASURES AND WAS REFUSED. PT CURENTLY IN ROOM WATCHING PHONE WITH LIGHTS OFF. NO ACUTE CHANGES IN ASSESSMENT AT THIS TIME. VITAL SIGNS REVIEWED. COREG DOSE ADJUSTED BY . WILL CONTINUE TO MONITOR.
--- NOTE | 2020-04-25 19:40 | NUR ---
ASSUMED CARE RECEIVED REPORT FROM VIRGINIA FUNES. ASSUMED CARE OF PT. RESTING COMFORTABLY AT THIS TIME, NO S/S ACUTE DISTRESS NOTED. CALL LIGHT, POSSESSIONS IN REACH. WILL CONTINUE TO MONITOR AND PROVIDE CARE.
--- NOTE | 2020-04-26 06:45 | NUR ---
SHIFT SUMMARY PT SLEPT ON AND OFF T/O NIGHT, PAIN MANAGED WITH MEDS PER EMAR, PT REPORTS INCREASED RELIEF. NO ACUTE CHANGES IN CONDITION T/O NIGHT, NEURO STATUS STABLE. VSS. CALL LIGHT, POSSESSIONS IN REACH, REPORT GIVEN TO JOSÉ MIGUEL,ALEC.
[2020-04-26 09:06] LABS: Albumin, Blood 3.4 g/dL (3.4-5.0); Albumin/Globulin Ratio 0.9 (0.8-1.8); Bilirubin, Total 0.3 mg/dL (0.1-1.0); Calcium, Blood 8.6 mg/dL (8.5-10.1); Creatinine, Blood 1.09 mg/dL (0.40-1.00); Globulin, Blood 3.7 g/dL (2.2-4.0); Potassium, Blood 3.8 mmol/L (3.5-5.5); Total Protein, Blood 7.1 g/dL (6.4-8.2)
[2020-04-26] MEDS ORDERED: LOSA50 PO (14:21)
--- NOTE | 2020-04-26 15:25 | NUR ---
1315 TALKED WITH PT AFTER BEING NOTIFIED THAT PT DECLINED HOLTER MONITOR. PT SAID THAT SHE HAD ONE IN THE PAST AND IT FELL OFF AND HAD ISSUES KEEPING IT ON. MILVIA COLEMAN TALKED WITH TO LET HER KNOW OF PT WISHES.
--- NOTE | 2020-04-26 15:28 | NUR ---
WHILE WORKING ON DISCHARGE FOR PT UNABLE TO INPUT PROVIDER REFERALS PT LIVES IN [place]. PT KNOWS THAT SHE IS RESPONSIBLE FOR MAKING FOLLOW UP APPOINTMENTS. FOLLOW UP WITH PCP IN ONE WEEK, CARDIOLOGY IN [place] IN 1-2 WEEKS, NEUROLOGY IN 1-2 WEEKS.
--- NOTE | 2020-04-26 15:34 | NUR ---
DISCHARGE SUMMARY 1454 PT WAS DC HOME. DURING SHIFT PT COMPLAINED OF CHRONIC CHEST PAIN AND NEW ONSET HEADACHE THAT WAS MEDICATED WITH SCHEDULED DOSES OF OXYCODONE/ACETAMONEPHEN AND PRN Q4 DILAUDID. PT WAS OFFERED A SHOWER BEFORE LEAVING AND PT DECLINED. PT ABLE TO AMBULATE IN ROOM WITHOUT ASSISTANCE. PT ON TELLE UNTIL DISCHARGE, AT TIME OF DC PT IN SR RATE 71. PT IV REMOVED BY MILVIA COLEMAN. PT TAKEN DOWN STAIRS BY MILVIA WHERE HER FAMILY WAS WAITING TO PICK HER UP. PT WAS AXO DURING SHIFT. PT TOOK PERSONAL BELONGINGS WITH HER AT TIME OF DC. DC PACKET WAS REVIEWED WITH MILVIA COLEMAN AND FOLLOW UP APPOINTMENT TIMES EMPHASISED. FAXED PT UPDATED PRESCRIPTIONS TO [facility] IN [place].
[2020-04-30 14:09] LABS: ATYPICAL PANCA <1:20 titer (Neg:<1:20); CYTOPLASMIC (C-ANCA) <1:20 titer (Neg:<1:20); PERINUCLEAR (P-ANCA) <1:20 titer (Neg:<1:20)
== END 2020-04-26 14:55 | disposition home or self-care (01) ==
LOC: ER 13:51 → MEDS 13:52 → ENPENDDIS 04-26 11:26 → MEDS 04-26 14:55
PROVIDERS: Emergency Medicine; Internal Medicine; ADMIT Internal Medicine
DX: R53.1 Weakness (principal); H53.461 Homonymous bilateral field defects, right side; G43.B0 Ophthalmoplegic migraine, not intractable; I21.4 Non-ST elevation (NSTEMI) myocardial infarction; I11.0 Hypertensive heart disease with heart failure; I50.22 Chronic systolic (congestive) heart failure; Z95.1 Presence of aortocoronary bypass graft; Z79.82 Long term (current) use of aspirin; Z79.02 Long term (current) use of antithrombotics/antiplatelets; Z79.899 Other long term (current) drug therapy; Z86.73 Personal history of transient ischemic attack (TIA), and cerebral infarction without residual deficits; E66.9 Obesity, unspecified; Z88.0 Allergy status to penicillin; Z87.891 Personal history of nicotine dependence; Z88.6 Allergy status to analgesic agent; Z88.8 Allergy status to other drugs, medicaments and biological substances; Z68.35 Body mass index [BMI] 35.0-35.9, adult
CPT/HCPCS: 36415; 70450; 70496; 70498; 70551; 71045; 80053; 81003; 82550; 84484; 85025; 85610; 85651; 86140; 93005; 93010; 96361; 96372; 96374; 99285-25; A9270-GY; G0378; J1170; J1650; J2060; J2270; J7030; Q9967

== ENCOUNTER 2020-05-20 20:11 | Emergency (ER) | payer OTHER ==
[~2020-05-20] VITALS: Ht 167.6 cm; Wt 99.8 kg
[~2020-05-20 20:11] MED LIST changes: +FUROSEMIDE20 MG PO; +ISOSORBIDE MONO60 MG PO; +LAMO25; +LOSA50 PO; +PERCOCET 10-321 EAC2 PO; +VALSARTAN160 MG PO
[2020-05-20 20:51] LABS: BASOPHILS ABSOLUTE AUTO 0.07 K/mm3 (0.00-0.23); BASOPHILS PERCENT AUTO 1 % (0-2); EOSINOPHILS ABSOLUTE AUTO 0.14 K/mm3 (0.00-0.68); EOSINOPHILS PERCENT AUTO 1 % (0-6); Hematocrit 50.4 % (33.0-51.0); Hemoglobin 16.2 g/dL (11.5-16.0); IMMATURE GRAN ABSOLUTE AUTO 0.02 K/mm3 (0.00-0.10); IMMATURE GRAN PERCENT AUTO 0 % (0-1); LYMPHOCYTES ABSOLUTE AUTO 2.21 K/mm3 (0.84-5.20); LYMPHOCYTES PERCENT AUTO 21 % (21-46); MONOCYTES ABSOLUTE AUTO 0.82 K/mm3 (0.16-1.47); MONOCYTES PERCENT AUTO 8 % (4-13); Mean Corpuscular HGB 28.1 pg (26.0-34.0); Mean Corpuscular HGB Conc 32.1 g/dL (31.5-36.5); Mean Corpuscular Volume 87 fL (80-100); Mean Platelet Volume 10.6 fL (9.1-12.4); NEUTROPHILS ABSOLUTE AUTO 7.54 K/mm3 (1.96-9.15); NEUTROPHILS PERCENT AUTO 70 % (41-73); Platelet Count 249 K/mm3 (150-400); RDW Coefficient Variation 13.7 % (11.7-14.2); RDW Standard Deviation 43.6 fL (35.1-46.3); Red Blood Cell Count 5.77 M/mm3 (3.80-5.20)
[2020-05-20 21:11] LABS: Alanine Aminotransfer (ALT/SGP 24 U/L (12-78); Albumin, Blood 3.8 g/dL (3.4-5.0); Albumin/Globulin Ratio 0.9 (0.8-1.8); Alk Phos 74 U/L (50-136); Anion Gap 6 mmol/L (6-16); Aspartate Aminotrans (AST/SGOT 15 U/L (12-37); Bilirubin, Total 0.5 mg/dL (0.1-1.0); Blood Urea Nitrogen 8 mg/dL (8-24); Bun/Creatinine Ratio 8.6 (12.0-20.0); CO2, Blood 25 mmol/L (21-32); Calcium, Blood 9.3 mg/dL (8.5-10.1); Chloride, Blood 106 mmol/L (98-108); Creatinine, Blood 0.94 mg/dL (0.40-1.00); Globulin, Blood 4.4 g/dL (2.2-4.0); Glomerular Filtration Rate >60 (60-); Glucose, Blood 99 mg/dL (70-99); Potassium, Blood 3.6 mmol/L (3.5-5.5); Sodium, Blood 137 mmol/L (136-145); Total Protein, Blood 8.2 g/dL (6.4-8.2); Troponin I <0.015 ng/mL (0.000-0.040)
[2020-05-22] MEDS ORDERED: ALPRAZOLAM0.5 M1 PO (15:02)
[2020-05-22] MEDS ORDERED: ISOSORBIDE MONO60 MG PO (15:03)
[2020-05-22] MEDS ORDERED: VALSARTAN160 MG PO (15:05)
== END 2020-05-21 01:30 | disposition home or self-care (01) ==
LOC: ER 20:11
PROVIDERS: Physician Assistant
DX: R07.9 Chest pain, unspecified (principal); R06.02 Shortness of breath; R00.2 Palpitations; R11.0 Nausea; I50.9 Heart failure, unspecified; I25.2 Old myocardial infarction; Z95.5 Presence of coronary angioplasty implant and graft; Z87.891 Personal history of nicotine dependence; Z86.73 Personal history of transient ischemic attack (TIA), and cerebral infarction without residual deficits; Z88.0 Allergy status to penicillin; Z88.8 Allergy status to other drugs, medicaments and biological substances; Z88.6 Allergy status to analgesic agent; Z88.4 Allergy status to anesthetic agent; Z88.5 Allergy status to narcotic agent; Z91.018 Allergy to other foods; Z79.899 Other long term (current) drug therapy; Z79.82 Long term (current) use of aspirin
CPT/HCPCS: 36415; 71046; 80053; 83880; 84484; 85025; 93005; 93010; 99285-25

== ENCOUNTER 2020-05-22 12:34 | Observation (INO) | payer OTHER ==
[~2020-05-22] VITALS: Ht 167.6 cm; Wt 104.4 kg
[2020-05-22 13:14] LABS: BASOPHILS ABSOLUTE AUTO 0.05 K/mm3 (0.00-0.23); BASOPHILS PERCENT AUTO 1 % (0-2); EOSINOPHILS ABSOLUTE AUTO 0.15 K/mm3 (0.00-0.68); EOSINOPHILS PERCENT AUTO 1 % (0-6); Hemoglobin 15.7 g/dL (11.5-16.0); IMMATURE GRAN ABSOLUTE AUTO 0.04 K/mm3 (0.00-0.10); IMMATURE GRAN PERCENT AUTO 0 % (0-1); LYMPHOCYTES ABSOLUTE AUTO 1.95 K/mm3 (0.84-5.20); LYMPHOCYTES PERCENT AUTO 19 % (21-46); MONOCYTES ABSOLUTE AUTO 0.77 K/mm3 (0.16-1.47); MONOCYTES PERCENT AUTO 7 % (4-13); Mean Corpuscular HGB Conc 32.7 g/dL (31.5-36.5); Mean Corpuscular Volume 89 fL (80-100); Mean Platelet Volume 10.3 fL (9.1-12.4); NEUTROPHILS ABSOLUTE AUTO 7.39 K/mm3 (1.96-9.15); NEUTROPHILS PERCENT AUTO 72 % (41-73); Platelet Count 227 K/mm3 (150-400); RDW Coefficient Variation 13.7 % (11.7-14.2); RDW Standard Deviation 44.3 fL (35.1-46.3); Red Blood Cell Count 5.42 M/mm3 (3.80-5.20); White Blood Cell Count 10.35 K/mm3 (4.00-11.30)
[2020-05-22 13:28] LABS: Alanine Aminotransfer (ALT/SGP 21 U/L (12-78); Albumin, Blood 3.6 g/dL (3.4-5.0); Albumin/Globulin Ratio 0.8 (0.8-1.8); Alk Phos 71 U/L (50-136); Anion Gap 7 mmol/L (6-16); Aspartate Aminotrans (AST/SGOT 16 U/L (12-37); Bilirubin, Total 0.4 mg/dL (0.1-1.0); Blood Urea Nitrogen 6 mg/dL (8-24); Bun/Creatinine Ratio 7.3 (12.0-20.0); CO2, Blood 24 mmol/L (21-32); Calcium, Blood 8.8 mg/dL (8.5-10.1); Chloride, Blood 108 mmol/L (98-108); Creatinine, Blood 0.82 mg/dL (0.40-1.00); Globulin, Blood 4.3 g/dL (2.2-4.0); Glomerular Filtration Rate >60 (60-); Glucose, Blood 129 mg/dL (70-99); Potassium, Blood 3.3 mmol/L (3.5-5.5); Sodium, Blood 139 mmol/L (136-145); Total Protein, Blood 7.9 g/dL (6.4-8.2); Troponin I <0.015 ng/mL (0.000-0.040)
[2020-05-22] MEDS ORDERED: ALPRAZOLAM0.5 M1 PO (15:02)
[2020-05-22] MEDS ORDERED: ISOSORBIDE MONO60 MG PO (15:03)
[2020-05-22] MEDS ORDERED: VALSARTAN160 MG PO (15:05)
--- NOTE | 2020-05-22 19:15 | NUR ---
INITAL SHIFT ASSESSMENT PT IS ALERT AND ORIENTED SITTING UP IN BED. SHE REQUESTED TO GET UP AND USE TOILET WHILE THIS RN IN ROOM. PT WAS ABLE TO WALK TO TOILET WITH NO ISSUES. STATES HER CHEST PAIN IS STILL 8/10. BUT THAT SHE DOES NOT FEEL DIZZY WHEN STANDING UP AND SHE ALSO DOES NOT FEEL SOB. SHE STATES HER CHEST FEELS HEAVY AND TIGHT. OVERALL PT STATES SHE BELIEVES THAT HER HEART IS JUST TIRED AND HAS BEEN OVERWORKED THIS WEEEK WITH STRESS. NITRO GTT ON AT 30MCG AND WILL BE TITRATED T/O SHIFT TO HELP WITH CHEST PAIN. PT ALSO HAS NS RUNNING AT 100ML/HR. SEE EMAR FOR ALL ADMINISTERED MEDICATIONS. PT HAS DILAUDID IV FOR PAIN MEDS WELL OXYCODONE NEEDED. OFFERED PT A HEATING PAD OR ANYTHING ELSE THAT MIGHT RELIEVE SOME OF HER PAIN SHE DENIES WANTING ANYTHING ELSE. VITALS ARE STABLE AT THIS TIME. PT'S OVERALL PHYSICAL ASSESSMENT IS FAILRY BENIGN. CALL LIGHT IN REACH AND PT ABLE TO USE. WILL CON'T TO MONITOR AND KEEP PT SAFE T/O REMAINDER OF SHIFT.
--- NOTE | 2020-05-23 05:02 | NUR ---
SHIFT SUMMARY PT HAS RESTED WELL OFF AND ON T/O SHIFT. SHE CON'T TO HAVE HER NITRO GTT RUNNING AT 25MCG. SHE HAS A HEADACHE AND CONSTANT CHEST PAIN. HOWEVER PAIN IS TOLERABLE THIS AM WITH PAIN MEDS BEING GIVEN. SHE STATES SHE DOES NOT FEEL LIKE THE NITRO GTT ACTUALLY DOES ANYTHING FOR HER PAIN. PT HAS NS TKO. VITALS ARE STABLE AND HAVE BEEN T/O SHIFT. PT CON'T TO USE CALL LIGHT NEEDED. WILL CON'T TO MONITOR AND KEEP PT SAFE UNTIL REPORT TO ONCOMING RN.
--- NOTE | 2020-05-23 08:40 | NUR ---
ASSESSMENT- PT AWAKE, ALERT, COOPERATIVE. C/O CHEST PAIN, RATES LEVEL 10 ON SCALE, STATES IT IS DIFFERENT PAIN THAN HER CHRONIC CHEST PAIN THAT SHE TAKES PAIN MEDICATION ROUTINELY FOR. NO DISTRESS, RESPIRATIONS UNLABORED, SKIN W/D, COLOR NORMAL. NSR, BP STABLE. NTG GTT AT 25 MCG/MIN. STATES HAS HEADACHE, STATES NTG HAS NOT DECREASED PAIN. DR. MONTENEGRO HERE-UPDATED AND SPOKE WITH PT. CARDIOLOGY CONSULT, LABS. RX FOR PAIN. WILL CONTINUE TO MONITOR
--- NOTE | 2020-05-23 09:26 | NUR ---
PT SLEEPING NOW, VSS. NO COMPLAINTS.
--- NOTE | 2020-05-23 10:33 | NUR ---
DR. ZAVALA HERE TO CONSULT. DISCUSSED WITH PT. PT HAS BEEN ABLE TO SLEEP, NO DISTRESS. C/O PAIN-STATES DILAUDID DID DECREASE PAIN TO LEVEL 8 SO SHE COULD REST. REQUESTING RX NOW. REQUEST SENT FOR RECORDS IN [employer]
--- NOTE | 2020-05-23 12:35 | NUR ---
BP STABLE. HEADACHE-RATES LEVEL 9. STATES NO RELIEF FROM DILAUDID IV. STATES STILL HAS CHEST PAIN BEFORE. NO DISTRESS, VSS. PLANS FOR NUCLEAR MED TEST TODAY. SITTING UP EATING LUNCH NOW.
--- NOTE | 2020-05-23 14:05 | NUR ---
PT TO NUCLEAR MED AND RETURN WITHOUT PROBLEMS. TOLERATED TEST. STATES HEADACHE SLIGHTLY BETTER. NTG IV OFF, PASTE IS ON. BP STABLE. PLANS FOR STRESS PORTION TOMORROW. C/O 10 CHEST PAIN, JAW PAIN, UNCHANGED. NO DISTRESS. TEXTING ON PHONE. NO N/V.
--- NOTE | 2020-05-23 14:28 | NUR ---
RECORDS FROM [facility] SARAH IN CHART.
--- NOTE | 2020-05-23 14:46 | NUR ---
UPDATE TO DR. ZAVALA-PT CONTINUES TO COMPLAIN OF CHEST PAIN, UNCHANGED TODAY. CANNOT HAVE NITRATES FOR 24 HOURS BEFORE IRASEMA CAN, NTG PAST OFF, CAN HAVE NTG SL IF NEEDED-BUT NOT FOR 4 HOURS BEFORE TEST. PT STATES NTG DOES NOT DECREASE ANY PAIN. UP TO TOILET WITHOUT PROBLEMS. VSS. SKIN W/D, PT STATES SHE IS VERY QUIET REGARDING HER DISCOMFORT. REFUSES AM CARES
--- NOTE | 2020-05-23 15:56 | NUR ---
PT COMPLAINING OF CHEST PRESSSURE/PAIN, STATES PAIN IS ONLY ON LEFT SIDE OF JAW NOW, SO SOMEWHAT IMPROVED. EKG DONE-NO ACUTE CHANGES. REFUSES NTG SL-STATES DOES NOT HELP AT HOME AND DOES NOT WANT HEADACHE. WATCHING MOVIES, TALKATIVE. NO N/V. SKIN W/D, NSR 60'S.
--- NOTE | 2020-05-23 17:17 | NUR ---
PT LAYING IN BED, NO DISTRESS. USING EAR BUDS AND WATCHING PHONE. TALKATIVE. STATES PAIN UNCHANGED. REFUSES NTG SL. VSS
--- NOTE | 2020-05-23 18:03 | NUR ---
PT SITTING UP IN BED EATING. STATES HAS DEVELOPED AN ANXIETY ISSUE AFTER HER STROKE. RX WITH PAIN MED AND ATIVAN. STATES CHEST PAIN NOW DECREASED TO LEVEL 7 -STATES THAT IS MUCH BETTER. VSS. NO DISTRESS. REFUSES NTG. CONTINUE TO MONITOR. NSR
--- NOTE | 2020-05-23 18:51 | NUR ---
PT ATE 100% DINNER. ASLEEP NOW WITHOUT COMPLAINTS. HEARTRATE 60'S NSR. UPDATE CALLED TO DR MONTENEGRO. PCU STATUS
--- NOTE | 2020-05-23 19:45 | NUR ---
INITAL SHIFT ASSESSMENT REPORT RECIEVED FROM OFF GOING RN. PT IS STABLE AT THIS TIME. ALERT AND ORIENTED ABLE TO USE CALL LIGHT AND COMMUNICATE ALL HER NEEDS. SHE IS HAVING CHEST PAIN INTO HER LEFT JAW. SHE WILL RECIEVE PAIN MEDS NEEDED T/O SHIFT WELL MEDS FOR ANXIETY. SHE REPORTS FEELING ANXIOUS ABOUT HER HEALTH, BUT HOPEFULL WITH THE STRESS TEST GETTING STARTED THAT MAYBE SHE WILL HAVE SOME ANSWERS ABOUT HER HEALTH CONDITION. PT DENIES PAIN OR DISCOMFORT ANYWHERE ELSE. OVERALL ASSESSMENT IS BENIGN. NO RESPIRATORY DISTRESS NOTED AT REST SHE IS ON RA. POWER GLIDE TO RIGHT UPPER ARM IS SL, BUT FLUSHES AND DRAWS BLOOD WELL AT THIS TIME. CALL LIGHT IN REACH WILL CON'T TO MONITOR AND KEEP PT SAFE T/O REMAINDER OF SHIFT.
--- NOTE | 2020-05-24 05:22 | NUR ---
SHIFT SUMMARY PT CON'T TO HAVE UN-CHANGED CHEST PAIN. SHE HAS RECIEVED IV AND PO PAIN MEDS TO HELP ASSIST WITH COMFORT. HOWEVER PT CON'T TO STATE SHE IS AT A LEVEL 8 -10 OUT OF 10 CHEST PAIN. SHE HAS HAD A MORE ELEVATED BP THIS AM. PT STATES SHE HAS RESTED WELL THIS AM AFTER THE ATIVAN IV, HOWEVER SHE KEEPS WAKING UP TO BAD DREAMS ABOUT HER HEATLH AND BEGINS TO FEEL MORE ANXIOUS AND THIS INCREASES HER PAIN. EXCEPT OF HER BP HER OTHER VITALS ARE STABLE. PT HAS BEEN INDEPENDENT IN HER ROOM UP TO TOILET NEEDED. USING CALL LIGHT FOR ANY HELP. WILL CON'T TO MONITOR AND KEEP PT SAFE TILL REPORT TO ONCOMING RN.
--- NOTE | 2020-05-24 08:04 | NUR ---
ASSUMED CARE: RECEIVED REPORT FROM NOC RN. PT APPEARS TO BE SLEEPING WITH EVEN CHEST RISE AND FALL. PROVIDED PT WITH FOOD TRAY AT 0730 ALONG WITH ALL MORNING MEDS TO ASSIST WITH ELIVATED BP AND CHEST PAIN. NO NITRO OR CAFFEINE GIVEN. WILL CONTINUE TO MONITOR AND ASSESS FURTHER.
--- NOTE | 2020-05-24 08:06 | NUR ---
DR CLEVELAND AND LAN: BOTH DOCTORS CAME IN TO SEE PT. PT STATES 10/10 PAIN. NO NEW ORDERS AT THIS TIME AWAITING SECOND PART OF STRESS TEST.
--- NOTE | 2020-05-24 09:59 | NUR ---
MEDICAL TRANSFER: DR CLEVELAND STATES PATIENTES ANGIO IN WAS UNREMARKABLE AND IS NOT GOING TO DO ANOTHER ANGIO WHILE SHE IS HERE. ORDERS TO CANCELL THE REMAINDER OF THE STRESS TEST. PT STATUS CHANGED TO MEDICAL WITH TELE.
--- NOTE | 2020-05-24 11:26 | NUR ---
DISCHARGE ORDERS: RECEIVED ORDERS FOR DISCHARGE. PT NOTIFIED OF UPCOMING DISCHARGE AND DISCUSSED TRAVEL ARANGEMENTS. PT DOES NOT HAVE VEHICLE HERE IN [place] OR ANYONE IN THE AREA TO GO. UPDATED BLOOD PRESSURE IN THE COMPUTER AND AWAITING UPDATE ON MEDICATIONS AND DR MONTENEGRO STATED HE WILL BE COMING BY TO SEE THE PT.
[2020-05-24] MEDS ORDERED: ST. JOSEPH ASPI81 MG PO (13:11)
== END 2020-05-24 13:45 | disposition home or self-care (01) ==
LOC: ER 12:34 → ICUW 12:35 → ICUE 12:35
PROVIDERS: Emergency Medicine; ADMIT Internal Medicine
DX: R07.9 Chest pain, unspecified (principal); I25.10 Atherosclerotic heart disease of native coronary artery without angina pectoris; I11.0 Hypertensive heart disease with heart failure; I50.22 Chronic systolic (congestive) heart failure; F11.90 Opioid use, unspecified, uncomplicated; Z95.1 Presence of aortocoronary bypass graft; E87.6 Hypokalemia; F41.9 Anxiety disorder, unspecified; E66.9 Obesity, unspecified; Z79.82 Long term (current) use of aspirin; Z79.899 Other long term (current) drug therapy; Z88.5 Allergy status to narcotic agent; Z88.8 Allergy status to other drugs, medicaments and biological substances; Z88.0 Allergy status to penicillin; Z91.018 Allergy to other foods; Z79.02 Long term (current) use of antithrombotics/antiplatelets; Z87.891 Personal history of nicotine dependence; I25.2 Old myocardial infarction; Z68.35 Body mass index [BMI] 35.0-35.9, adult
CPT/HCPCS: 36415; 71046; 78451; 80053; 83880; 84484; 85025; 93005; 93010; 96374; 96375; 96376; 99285-25; A9270; A9270-GY; A9500; C1751; G0378; J1170; J2060; J7030; J7050

== ENCOUNTER 2020-05-27 01:45 | Observation (INO) | payer OTHER ==
[~2020-05-27] VITALS: Ht 167.6 cm; Wt 105.0 kg
[~2020-05-27 01:45] MED LIST changes: +ALPRAZOLAM0.5 M1 PO; +ST. JOSEPH ASPI81 MG PO
[2020-05-27 02:11] LABS: BASOPHILS ABSOLUTE AUTO 0.09 K/mm3 (0.00-0.23); BASOPHILS PERCENT AUTO 1 % (0-2); EOSINOPHILS ABSOLUTE AUTO 0.32 K/mm3 (0.00-0.68); EOSINOPHILS PERCENT AUTO 2 % (0-6); Hematocrit 48.3 % (33.0-51.0); Hemoglobin 15.7 g/dL (11.5-16.0); IMMATURE GRAN ABSOLUTE AUTO 0.08 K/mm3 (0.00-0.10); IMMATURE GRAN PERCENT AUTO 1 % (0-1); LYMPHOCYTES ABSOLUTE AUTO 2.97 K/mm3 (0.84-5.20); LYMPHOCYTES PERCENT AUTO 20 % (21-46); MONOCYTES ABSOLUTE AUTO 1.29 K/mm3 (0.16-1.47); MONOCYTES PERCENT AUTO 9 % (4-13); Mean Corpuscular HGB 28.6 pg (26.0-34.0); Mean Corpuscular HGB Conc 32.5 g/dL (31.5-36.5); Mean Corpuscular Volume 88 fL (80-100); Mean Platelet Volume 11.2 fL (9.1-12.4); NEUTROPHILS ABSOLUTE AUTO 10.41 K/mm3 (1.96-9.15); NEUTROPHILS PERCENT AUTO 69 % (41-73); Platelet Count 237 K/mm3 (150-400); RDW Coefficient Variation 13.6 % (11.7-14.2); Red Blood Cell Count 5.49 M/mm3 (3.80-5.20); White Blood Cell Count 15.16 K/mm3 (4.00-11.30)
[2020-05-27 02:21] LABS: Alanine Aminotransfer (ALT/SGP 20 U/L (12-78); Albumin, Blood 3.7 g/dL (3.4-5.0); Albumin/Globulin Ratio 0.9 (0.8-1.8); Alk Phos 72 U/L (50-136); Anion Gap 6 mmol/L (6-16); Aspartate Aminotrans (AST/SGOT 11 U/L (12-37); Bilirubin, Total 0.2 mg/dL (0.1-1.0); Blood Urea Nitrogen 12 mg/dL (8-24); Bun/Creatinine Ratio 13.7 (12.0-20.0); CO2, Blood 28 mmol/L (21-32); Calcium, Blood 8.8 mg/dL (8.5-10.1); Chloride, Blood 106 mmol/L (98-108); Creatinine, Blood 0.88 mg/dL (0.40-1.00); Globulin, Blood 3.9 g/dL (2.2-4.0); Glomerular Filtration Rate >60 (60-); Glucose, Blood 93 mg/dL (70-99); Potassium, Blood 3.3 mmol/L (3.5-5.5); Sodium, Blood 140 mmol/L (136-145); Total Protein, Blood 7.6 g/dL (6.4-8.2); Troponin I <0.015 ng/mL (0.000-0.040)
[2020-05-27 02:54] LABS: Source, Urine Clean Catch
[2020-05-27 02:57] LABS: Bilirubin, Urine Neg (Neg); Blood, Urine 1+ (Neg); Glucose Qualitative, Urine Neg (Neg); Ketones, Urine Neg (Neg); Leukocyte Esterase, Urine Neg (Neg); Nitrite, Urine Neg (Neg); Protein, Urine Neg (Neg); Urobilinogen, Urine NORM (Normal)
[2020-05-27 03:08] LABS: Appearance, Urine Clear (Clear); Bacteria Rare /hpf; Color, Urine Yellow (P-Yellow); Red Blood Cells, Urine 0-2 /hpf (0-2); Squamous Epithelial Cells Few /hpf (Few); U Amphetamine Screen Not Detected; U Barbituate Screen Not Detected; U Benzodiazapine Screen DETECTED; U Cocaine Screen Not Detected; U Methadone Screen Not Detected; U Methamphetamine Screen Not Detected; U Opiates Screen DETECTED; White Blood Cells, Urine Not Seen /hpf (0-5)
[2020-05-27 03:09] LABS: U Buprenorphine Screen Not Detected; U Cannabinoids Screen Not Detected; U Oxycodone Screen DETECTED; U Phencyclidine Screen Not Detected; U Propoxyphene Screen Not Detected
--- NOTE | 2020-05-27 05:20 | NUR ---
per md pop, ordered fentanyl for pain medication, and is aware it will pop up as an "allergy". he ordered to continue to order fentanyl. pharmacy called to clarify. per md - continue with order for fentanyl
--- NOTE | 2020-05-27 17:32 | NUR ---
SHIFT SUMMARY PT ALERT AND ORIENTED. VS STABLE. O2 SATS REMAIN ABOVE 90% ON RA. BP STABLE. HR REMAINS NSR. TROPONINS ALL NEGATIVE. PT CONTINUES TO COMPLAIN OF CHEST PAIN THROUGHOUT SHIFT THAT IS UNCHANGED WITH MEDICATION. PT WITH NEW COMPLAINT OF RLQ PAIN. PT MEDICATED PER EMAR. WILL CONTINUE TO MONITOR AND REPORT TO ONCOMING RN. CALL LIGHT IN REACH.
--- NOTE | 2020-05-27 18:08 | NUR ---
REPORT GIVEN TO LEXUS COLEMAN ON MEDICLA FLOOR. PT TO GO UP BY ELANA.
--- NOTE | 2020-05-27 19:57 | NUR ---
SHIFT SUMMARY- PT TRANSFERED TO MEDICAL FLOOR FROM PCU. PLAN IS TO DC HOME TOMORROW. PASSED REPORT ON TO NIGHT RN MAXIMILIANO. PT MEDICATED FOR PAIN UPON ARRIVAL TO MEDICAL FLOOR. PT ALERT, ORIENTED AND INDEPENDENT. CALL LIGHT IN REACH.
[2020-05-28 04:37] LABS: BASOPHILS ABSOLUTE AUTO 0.05 K/mm3 (0.00-0.23); BASOPHILS PERCENT AUTO 1 % (0-2); EOSINOPHILS ABSOLUTE AUTO 0.28 K/mm3 (0.00-0.68); EOSINOPHILS PERCENT AUTO 3 % (0-6); Hemoglobin 13.9 g/dL (11.5-16.0); IMMATURE GRAN ABSOLUTE AUTO 0.03 K/mm3 (0.00-0.10); IMMATURE GRAN PERCENT AUTO 0 % (0-1); LYMPHOCYTES ABSOLUTE AUTO 2.56 K/mm3 (0.84-5.20); LYMPHOCYTES PERCENT AUTO 25 % (21-46); MONOCYTES ABSOLUTE AUTO 0.55 K/mm3 (0.16-1.47); MONOCYTES PERCENT AUTO 5 % (4-13); Mean Corpuscular HGB 28.4 pg (26.0-34.0); Mean Corpuscular HGB Conc 31.6 g/dL (31.5-36.5); Mean Corpuscular Volume 90 fL (80-100); NEUTROPHILS ABSOLUTE AUTO 6.67 K/mm3 (1.96-9.15); NEUTROPHILS PERCENT AUTO 66 % (41-73); Platelet Count 186 K/mm3 (150-400); RDW Coefficient Variation 13.6 % (11.7-14.2); RDW Standard Deviation 45.1 fL (35.1-46.3); White Blood Cell Count 10.14 K/mm3 (4.00-11.30)
--- NOTE | 2020-05-28 04:52 | NUR ---
SUMMARY: A/OX4, CALLS APPROPRIATELY AND INDEPENDENT IN ROOM. SHE CONTINUES TO C/O CHEST AND INTERMITTENT LLQ/SIDE PAIN. NO OTHER S/S CARDIAC DISTRESS AND PT DENIES ANY FURTHER COMPLAINTS. SHE'S EATEN SNACKS AND SLEPT OFF AND ON T/O NOCTE DESPITE REPORT THAT PAIN CONTROL IS NEVER BETTER THAT 12/23. FENTANYL IV X2 DOSES AND OXYCODONE PO X1 DOSE WERE RECIEVED PRN. TELEMETRY INTACT AND REMAINS S.ADDIS-NSR AT 50'S-60'S BPM. NO ACUTE CHANGES, VSS/AFEBRILE, SPO2 WNL ON RA AND RESPS E/U. PROBABLE D/C HOME TODAY. WCTM AND REPORT TO DAY RN.
[2020-05-28 04:56] LABS: Alanine Aminotransfer (ALT/SGP 20 U/L (12-78); Albumin, Blood 3.3 g/dL (3.4-5.0); Albumin/Globulin Ratio 0.9 (0.8-1.8); Alk Phos 62 U/L (50-136); Anion Gap 8 mmol/L (6-16); Aspartate Aminotrans (AST/SGOT 9 U/L (12-37); Bilirubin, Total 0.3 mg/dL (0.1-1.0); Blood Urea Nitrogen 13 mg/dL (8-24); CO2, Blood 28 mmol/L (21-32); Calcium, Blood 9.3 mg/dL (8.5-10.1); Chloride, Blood 105 mmol/L (98-108); Creatinine, Blood 1.08 mg/dL (0.40-1.00); Globulin, Blood 3.7 g/dL (2.2-4.0); Glomerular Filtration Rate >60 (60-); Glucose, Blood 119 mg/dL (70-99); Sodium, Blood 141 mmol/L (136-145)
[2020-05-28] MEDS ORDERED: LOSA50 PO (11:11)
[2020-05-28] MEDS ORDERED: BUSP5 PO (11:12)
--- NOTE | 2020-05-28 14:07 | NUR ---
DISCHARGE INSTRUCTIONS COMPLETED AND DISCUSSED WITH PT EXPRESSING UNDERSTANDING. SCRIPTS FAXED TO [facility] IN [place]. PT REPORTS SHE HAS AN APPT WITH A NEW PCP THIS AFTERNOON IN [place]. TO [facility] VIA W/C.
== END 2020-05-28 12:56 | disposition home or self-care (01) ==
LOC: ER 01:45 → PCU 01:46 → MEDS 18:18
PROVIDERS: Emergency Medicine; ADMIT Internal Medicine
DX: I25.119 Atherosclerotic heart disease of native coronary artery with unspecified angina pectoris (principal); F41.9 Anxiety disorder, unspecified; I11.0 Hypertensive heart disease with heart failure; I50.22 Chronic systolic (congestive) heart failure; Z95.5 Presence of coronary angioplasty implant and graft; Z79.82 Long term (current) use of aspirin; Z79.02 Long term (current) use of antithrombotics/antiplatelets; Z79.899 Other long term (current) drug therapy; E78.5 Hyperlipidemia, unspecified; Z88.5 Allergy status to narcotic agent; Z88.8 Allergy status to other drugs, medicaments and biological substances; Z91.018 Allergy to other foods; Z86.73 Personal history of transient ischemic attack (TIA), and cerebral infarction without residual deficits; E87.6 Hypokalemia; Z87.891 Personal history of nicotine dependence
CPT/HCPCS: 36415; 71045; 80053; 81001; 84484; 85025; 93005; 93010; 96361; 96372; 96374; 96375; 96376; 99285-25; A9270; A9270-GY; G0378; J1170; J1630; J1650; J2060; J2270; J2405; J3010; J7030

== ENCOUNTER 2020-06-11 23:02 | Emergency (ER) | payer OTHER ==
[~2020-06-11] VITALS: Ht 167.6 cm; Wt 104.3 kg
[~2020-06-11 23:02] MED LIST changes: +BUSP5 PO
[2020-06-11 23:34] LABS: BASOPHILS ABSOLUTE AUTO 0.05 K/mm3 (0.00-0.23); BASOPHILS PERCENT AUTO 0 % (0-2); EOSINOPHILS ABSOLUTE AUTO 0.03 K/mm3 (0.00-0.68); EOSINOPHILS PERCENT AUTO 0 % (0-6); Hematocrit 48.7 % (33.0-51.0); Hemoglobin 15.7 g/dL (11.5-16.0); IMMATURE GRAN ABSOLUTE AUTO 0.03 K/mm3 (0.00-0.10); IMMATURE GRAN PERCENT AUTO 0 % (0-1); LYMPHOCYTES ABSOLUTE AUTO 1.17 K/mm3 (0.84-5.20); LYMPHOCYTES PERCENT AUTO 9 % (21-46); MONOCYTES PERCENT AUTO 3 % (4-13); Mean Corpuscular HGB 28.5 pg (26.0-34.0); Mean Corpuscular HGB Conc 32.2 g/dL (31.5-36.5); Mean Corpuscular Volume 88 fL (80-100); Mean Platelet Volume 10.4 fL (9.1-12.4); NEUTROPHILS ABSOLUTE AUTO 11.11 K/mm3 (1.96-9.15); NEUTROPHILS PERCENT AUTO 87 % (41-73); Platelet Count 251 K/mm3 (150-400); RDW Coefficient Variation 13.8 % (11.7-14.2); RDW Standard Deviation 44.3 fL (35.1-46.3); Red Blood Cell Count 5.51 M/mm3 (3.80-5.20); White Blood Cell Count 12.79 K/mm3 (4.00-11.30)
[2020-06-12 00:06] LABS: Anion Gap 8 mmol/L (6-16); Blood Urea Nitrogen 8 mg/dL (8-24); Bun/Creatinine Ratio 9.7 (12.0-20.0); CO2, Blood 23 mmol/L (21-32); Calcium, Blood 8.7 mg/dL (8.5-10.1); Chloride, Blood 107 mmol/L (98-108); Creatinine, Blood 0.82 mg/dL (0.40-1.00); Glomerular Filtration Rate >60 (60-); Glucose, Blood 115 mg/dL (70-99); Potassium, Blood 3.5 mmol/L (3.5-5.5); Sodium, Blood 138 mmol/L (136-145); Troponin I <0.015 ng/mL (0.000-0.040)
[2020-06-12] MEDS ORDERED: LORAZEPAM0.5 MG PO (21:05)
== END 2020-06-12 02:07 | disposition home or self-care (01) ==
LOC: ER 23:02
PROVIDERS: Student in an Organized Health Care Education/Training Program
DX: R07.9 Chest pain, unspecified (principal); G89.29 Other chronic pain; R00.2 Palpitations; I50.9 Heart failure, unspecified; I25.2 Old myocardial infarction; I25.810 Atherosclerosis of coronary artery bypass graft(s) without angina pectoris; Z86.73 Personal history of transient ischemic attack (TIA), and cerebral infarction without residual deficits; Z95.1 Presence of aortocoronary bypass graft; Z95.5 Presence of coronary angioplasty implant and graft; Z79.82 Long term (current) use of aspirin; Z79.02 Long term (current) use of antithrombotics/antiplatelets; Z79.899 Other long term (current) drug therapy; Z87.891 Personal history of nicotine dependence
CPT/HCPCS: 36415; 71045; 80048; 84484; 85025; 93005; 93010; 99285-25

== ENCOUNTER 2020-06-12 18:48 | Inpatient (IN) | payer OTHER ==
[~2020-06-12] VITALS: Ht 167.6 cm; Wt 103.6 kg
[2020-06-12] MEDS ORDERED: LORAZEPAM0.5 MG PO (21:05)
[2020-06-12 21:07] LABS: BASOPHILS ABSOLUTE AUTO 0.05 K/mm3 (0.00-0.23); BASOPHILS PERCENT AUTO 1 % (0-2); EOSINOPHILS ABSOLUTE AUTO 0.09 K/mm3 (0.00-0.68); EOSINOPHILS PERCENT AUTO 1 % (0-6); Hematocrit 46.9 % (33.0-51.0); Hemoglobin 15.2 g/dL (11.5-16.0); IMMATURE GRAN ABSOLUTE AUTO 0.03 K/mm3 (0.00-0.10); IMMATURE GRAN PERCENT AUTO 0 % (0-1); LYMPHOCYTES ABSOLUTE AUTO 1.84 K/mm3 (0.84-5.20); LYMPHOCYTES PERCENT AUTO 18 % (21-46); MONOCYTES ABSOLUTE AUTO 0.72 K/mm3 (0.16-1.47); MONOCYTES PERCENT AUTO 7 % (4-13); Mean Corpuscular HGB 28.6 pg (26.0-34.0); Mean Corpuscular HGB Conc 32.4 g/dL (31.5-36.5); Mean Corpuscular Volume 88 fL (80-100); Mean Platelet Volume 10.4 fL (9.1-12.4); NEUTROPHILS ABSOLUTE AUTO 7.44 K/mm3 (1.96-9.15); NEUTROPHILS PERCENT AUTO 73 % (41-73); Platelet Count 231 K/mm3 (150-400); RDW Standard Deviation 44.5 fL (35.1-46.3); Red Blood Cell Count 5.32 M/mm3 (3.80-5.20); White Blood Cell Count 10.17 K/mm3 (4.00-11.30)
[2020-06-12 21:24] LABS: Alanine Aminotransfer (ALT/SGP 20 U/L (12-78); Albumin, Blood 3.6 g/dL (3.4-5.0); Albumin/Globulin Ratio 0.8 (0.8-1.8); Alk Phos 67 U/L (50-136); Anion Gap 8 mmol/L (6-16); Aspartate Aminotrans (AST/SGOT 12 U/L (12-37); Bilirubin, Total 0.5 mg/dL (0.1-1.0); Blood Urea Nitrogen 8 mg/dL (8-24); Bun/Creatinine Ratio 10.5 (12.0-20.0); CO2, Blood 26 mmol/L (21-32); Calcium, Blood 9.1 mg/dL (8.5-10.1); Chloride, Blood 109 mmol/L (98-108); Creatinine, Blood 0.76 mg/dL (0.40-1.00); Ethanol (Alcohol), Blood, Med <3 mg/dL; Globulin, Blood 4.3 g/dL (2.2-4.0); Glomerular Filtration Rate >60 (60-); Glucose, Blood 99 mg/dL (70-99); Potassium, Blood 3.3 mmol/L (3.5-5.5); Sodium, Blood 143 mmol/L (136-145); Total Protein, Blood 7.9 g/dL (6.4-8.2)
[2020-06-12 21:31] LABS: International Normalized Ratio 1.01; Prothrombin Time Results 10.8 Sec (9.7-11.5)
[2020-06-12 22:28] LABS: U Amphetamine Screen Not Detected; U Barbituate Screen Not Detected; U Benzodiazapine Screen Not Detected; U Buprenorphine Screen Not Detected; U Cannabinoids Screen Not Detected; U Cocaine Screen Not Detected; U Methadone Screen Not Detected; U Methamphetamine Screen Not Detected; U Opiates Screen DETECTED; U Oxycodone Screen DETECTED; U Phencyclidine Screen Not Detected; U Propoxyphene Screen Not Detected
--- NOTE | 2020-06-13 05:47 | NUR ---
SHIFT SUMMARY PT ARRIVED TO UNIT FROM ED VIA STRETCHER @ 2010. PT TRANSFERRED FROM STRETCHER TO STANDING SCALE THEN TO BED SBA. UPON ASSESSMENT L ARM SEEMS FLACID, THOUGH WHEN APPROACHING ROOM PT IS USING BOTH HANDS/ARMS. WHEN ASSESSING PAIN PT STATES 10/10 HEADACHE WITH NO RELIEF FROM MEDICATION. PT SLEPT T/O NIGHT. WHEN WOKEN UP FOR NEURO CHECK PT STATES 10/10 PAIN AGAIN. PAIN MEDS ADMINISTERED PER OCT. PT STATES "PILLS DON'T WORK FOR ME." PT IS LAYING IN BED WATCHING TV. EVEN AND UNLABORED RESPIRATIONS. BED IN LOWERED POSITION WITH BED ALARM ON. CALL LIGHT AND PERSONAL ITEMS WITHIN REACH. NO APPARENT NEEDS OR DISTRESS AT THIS TIME, WILL CONTINUE TO MONITOR UNTIL REPORT GIVEN TO DAY RN. MRA CHECK LIST FAXED TO [facility].
--- NOTE | 2020-06-13 17:52 | NUR ---
PATIENT IS ALERT AND ORIENTED AND COOPERATIVE WITH CARE. PATIENT STATES SHE HAS LEFT SIDED WEAKNESS AND STATES HER LEFT HAND HAS MOVEMENT NOW THAN IT DID THIS MORNING. THE PATIENT IS AMBULATORY, SHE WALKS TO THE BATHROOM WITH SBA. PATIENT USES HER LEFT HAND TO TEXT AND USE HER PHONE. PATIENT HAD A MRI OF HER HEAD AND NECK TODAY. PATIENT C/O 05/[address] MARTIN PRESCRIBED PAIN MEDICATION. TELE WAS DC'D TODAY. WILL CONTINUE TO MONITOR.
--- NOTE | 2020-06-14 05:28 | NUR ---
SHIFT SUMMARY: VSS. AFEB. AAOX4. ABLE TO COMMUNICATE NEEDS. NEURO CHECKS CONSISTENTLY SHOW WEAKNESS IN L SPECIAL AGENT/PUSH/PULL COMPARED TO R. PT REPORTS N/T IN L UPPER AND LOWER EXT. ABLE TO AMB TO AND FROM BATHROOM W/ SLOW, CAREFUL GAIT. PT IS ABLE TO HOLD PHONE AND FULL CUPS IN L HAND BUT DEMONSTRATED WEAKNESS IN ABILITY TO RAISE FULL CUP UP TO MOUTH. MED FOR HEADACHE 05/25 SEVERAL TIMES TONIGHT W/ONLY MINOR RELIEF PER PT. WAS ABLE TO SLEEP A SHORT WHILE AFTER EACH MED ADMINISTRATION. WILL CONT TO MONITOR.
--- NOTE | 2020-06-14 11:42 | NUR ---
noc gave bsr, call light in reach, pt in pain medicated as prescribed, rm minimal light, trying to disturb pt as little as possible, cooprative with ot but late sent away pt in to visit expressed concern r/blurred vision may have to spend the night
--- NOTE | 2020-06-14 11:54 | NUR ---
dr ordered ativan for 30 min prior to mri will wait for further instructions/when mri is scheduled
--- NOTE | 2020-06-14 12:40 | NUR ---
down for mri, pt asked for oxy for chest pain
--- NOTE | 2020-06-14 15:33 | NUR ---
in to see pt, discussed findings and conclusions, pt mentioned continued BROOKS, stated unwillingness to increase pain medication, states he will try to think of another solution/intervention, nurse will continue to treat with medications prescribed as well as any other intervention that pt requests that is nonpharmalogical, pt states she just wants to be left alone for now and that she will call, will continue to monitor and treat
--- NOTE | 2020-06-14 17:07 | NUR ---
Pt resting in bed upon arrival. Pt reports 10/10 head and describes it starting at the back of her head to the top of her head. Pt reports headache is similar to the headache she experienced from her previous stroke. Discussed medications typically used for heachaches with Pt reporting being sensitive to those medications. Flexeril available with Pt reporting being sensitive to this as well. Pt also reports being sensitive to caffeine and states it makes her heart race and causes her to shake. Suggested distraction technique with Pt reporting having already tried with no benefit. Consulted with hospital pharmacy. Spoke with Bedside VIRGINIA Banks and discussed case. Will continue to research for potential ways to manage headaches.
--- NOTE | 2020-06-14 18:48 | NUR ---
a+o, call light in reach, medicated to the max allowed by prescription, pain was not controlled, dr informed and tried to relive, pt sitting in rm watching tv, states davies remains, but chest pain is better when treated, refused some offered medication due to negative reaction she has had in the past, treated with non pharmalogical interventions as much as possible, will share bsr with NOC nurse and pt
--- NOTE | 2020-06-14 23:05 | NUR ---
1945 PT RESTING COMFORTABLY IN BED; CHEERFUL; LEFT UPPER ARM WEAKNESS NOTED; ABLE TO TRANSFER AND AMBULATE TO BATHROOM WITHOUT ISSUE.
--- NOTE | 2020-06-15 03:31 | NUR ---
SHIFT SUMMARY: 35 Y/O OBESE FEMALE HAD RESTLESS SHIFT AT TIMES WITH C/O HEADACHE AND ANXIETY WITH OXYCODONE 10MG PO GIVEN TWICE AND ATIVAN 0.5MG PO GIVEN TWICE (MD NOTIFIED AFTER PATIENT REQUIRED SECOND NOW DOSE MIDDLE OF NOC) WITH ADEQUATE RELIEF; DENIES CHEST PAIN OR NAUSEA; ALERT AND ORIENTED X 4; PTS LEFT ARM WEAKER THAN RIGHT; PT WAS OBSERVED TO BE ABLE TO UTILIZE LEFT HAND TO TEXT RAPIDLY WITH ALL HER FINGERS BY THIS NURSE WHEN USING PERSONAL PHONE; PT VOICED THAT HER BROTHER AT AGE 36 OF DC; UP AD MOHSEN PER SELF TO BATHROOM WITHOUT ISSUE; BED LOW POSITION WITH CALL LIGHT AT SIDE.
--- NOTE | 2020-06-15 10:40 | NUR ---
Spoke with Bedside VIRGINIA Bansk prior to visiting with Pt and discussed case. Dr Estrada will order morphine to assist with headache. Pt sitting up in bed and reports 10/10 headache pain. Engaged in therapeutic listening and answered questions. Pt agreeable with current plan of care. Palliative Care will remain available.
--- NOTE | 2020-06-15 10:51 | NUR ---
pt states she has had morphine previously and did not anticipate any allergic issues
--- NOTE | 2020-06-15 13:29 | NUR ---
Worked deal with pt to agree to pt if I gave her her oxy before, so gave medication 20 min early
--- NOTE | 2020-06-15 19:06 | NUR ---
sitting up watching tv on iphone, took medication as prescribed, reminded nurse of q4 pain medication schedule, requested morphine in order to stand iv, call light in reach, worked with pt when medicated, talke to dr rahman/alex multiple times
--- NOTE | 2020-06-16 04:23 | NUR ---
SHIFT SUMMARY: 35 Y/O OBESE FEMALE RESTED COMFORTABLY IN BED AT TIMES ALL SHIFT; PT C/O PAIN ENTIRE BODY RATED 8/10 WITH MORPHINE SULFATE 2MG IVP GIVEN TWICE AND NORCO 10/325 PO X 1 WITH ADEQUATE PAIN RELIEF NOTED; PTS LEFT ARM NOTED TO HAVE SOME FINE MOTOR MOVEMENT WHICH PATIENTS TRYS TO HIDE WHEN STAFF ARE PRESENT IN ROOM; PT WAS OBSERVED AGAIN TYPING QUITE RAPIDLY WITH LEFT HAND ON HER CELL PHONE AT TIMES THIS SHIFT; ALERT AND ORIENTED X 4; PT ABLE TO AMBULATE BATHROOM AND BACK WITHOUT ISSUE; BED LOW POSITION WITH CALL LIGHT AT SIDE.
[2020-06-16 12:19] LABS: Albumin, Blood 3.5 g/dL (3.4-5.0); Anion Gap 5 mmol/L (6-16); Blood Urea Nitrogen 16 mg/dL (8-24); Bun/Creatinine Ratio 16.4 (12.0-20.0); CO2, Blood 29 mmol/L (21-32); Chloride, Blood 105 mmol/L (98-108); Creatinine, Blood 0.98 mg/dL (0.40-1.00); Glomerular Filtration Rate >60 (60-); Glucose, Blood 98 mg/dL (70-99); Phosphorus, Blood 3.1 mg/dL (2.5-4.9); Potassium, Blood 3.3 mmol/L (3.5-5.5); Sodium, Blood 139 mmol/L (136-145); Troponin I <0.015 ng/mL (0.000-0.040)
--- NOTE | 2020-06-16 19:24 | NUR ---
a+o, call light in reach, pain med given as prescribed, dr aware of pain and lack of control, pt cheerful report shared with noc nurse
--- NOTE | 2020-06-17 05:26 | NUR ---
Rn summary: Patient is alert and oriented. Pt c/o severe headache 05/25. Pt was medicated x2 with MS 2 mg for BROOKS and oxy 5mg for chest pain. Pt has left sided weakness, line construction engineer is weak compaired to Rt. When asked to move Left leg, pt moves toes minimally and struggles to bend knee. Pt states she can walk and she just " drags her Left leg". Pt has not been seen out of the bed. Pt finally rested this am after 0400. Tele shows SR at 83 bpm. Breath sounds were diminished slightly on the left side. Pt is on RA. Call light is in reach. Will continue to monitor.
--- NOTE | 2020-06-17 15:45 | NUR ---
SHIFT SUMMARY PT IS A/O X 4 AND HAS ONGOING C/O CHEST/STERNAL PAIN R/T HER OPEN HEART SURGERY IN 2016 REPORTED BY THE PT. SHE ALSO REPORTS AN ONGOING BROOKS FOR WHICH IV MORPHINE IS THE ONLY MED THAT IS EFFECTIVE. PT HAS BEEN MEDICATED ORDERED AND DR CARDONA IS AWARE OF HER PAIN MANAGEMENT NEEDS. THE PT HAS LEFT SIDED WEAKNESS BUT IS ABLE TO SELF AMBULATE TO THE BATHROOM. THE PLAN IS FOR HER TO DC TO SNF TOMORROW. SHE IS RESTING IN BED ON THE PHONE AND CALLS APPROPRIATELY WHEN NEEDED.
--- NOTE | 2020-06-18 05:04 | NUR ---
SHIFT SUMMARY- PT. A&O, PLEASANT, AND COOPERATIVE WITH CARE. PT. STATED LT SIDED WEAKNESS BUT PER PT. ABLE TO BE INDEP IN ROOM. C/O CHRONIC CP 02/22 AND BROOKS 05/25. MEDICATED PER EMAR WITH MINIMAL EFFECT. PT. STATES PO PAIN MEDS DO NOT HELP WITH HER BROOKS'S. PT. AWAITING PLACEMENT TO SNF. DENIED ANY OTHER NEEDS DURING THE NIGHT. RESTING QUIETLY IN BED, NO APPARENT DISTRESS NOTED. CALL LIGHT WITHIN REACH AND SIDE RAILS UPX2. WILL CONT TO MONITOR.
[2020-06-18] MEDS ORDERED: CYCL10 PO ×2 (10:35→15:07)
[2020-06-18] MEDS ORDERED: LOSA50 PO (10:36)
[2020-06-18] MEDS ORDERED: LOSARTAN POTASS50 M1 PO (15:07)
--- NOTE | 2020-06-18 15:37 | NUR ---
DISCHARGE INSTRUCTIONS THIS RN UNABLE TO MAKE PT'S FOLLOW UP APPTS WITH PHYSICIANS DUE TO PT UNABLE TO GIVE THIS RN THE NAMES OF THEM. THIS RN INSTRUCTED PT TO CALL PHYSICIAN'S OFFICE TO SET UP TIMES WHEN SHE IS HOME AND HAS THE CONTACT INFORMATION. THIS RN CALLED PRESCRIPTIONS INTO [facility] ON [facility] IN [place].
--- NOTE | 2020-06-18 15:59 | NUR ---
DISCHARGE NOTE DC INSTRUCTIONS AND MEDICATIONS REVIEWED WITH PT BY THIS RN. THIS RN DC'D PT TELE AND DILLON IV LINE. PT VERBALIZED UNDERSTANDING OF DC INSTRUCTIONS AND MEDICATIONS. HARD SCRIPT FOR PERCOCET AND ANXIETY MEDICATION WITH PT. PT BELONGINGS WITH PT IN ROOM. PT JOANENLTY AWAITING TRANSPORT ARRIVAL TO ER ENTRANCE. PT DOES NOT KNOW THE NAME OF HER MACHINE BINDER STRIPPER, NEUROLOGIST, OR PRIMARY CARE PROVIDER. AT THIS TIME WE WERE UNABLE TO CREATE DC APPOINTMENTS WITH THOSE PHYSICIANS, BUT PATIENT HAS INSTRUCTIONS TO CREATE APPOINTMENTS UPON FINDING HER PROVIDER INFORMATION.
== END 2020-06-18 16:23 | disposition home health service (06) | DRG 103 ==
LOC: ER 18:48 → MEDS 18:49
PROVIDERS: Family Medicine; Internal Medicine; Physician Assistant; ADMIT Internal Medicine
DX: G43.809 Other migraine, not intractable, without status migrainosus (principal); Z68.36 Body mass index [BMI] 36.0-36.9, adult; Z79.82 Long term (current) use of aspirin; G89.4 Chronic pain syndrome; I10 Essential (primary) hypertension; E78.5 Hyperlipidemia, unspecified; Z87.891 Personal history of nicotine dependence; Z86.73 Personal history of transient ischemic attack (TIA), and cerebral infarction without residual deficits; Z79.02 Long term (current) use of antithrombotics/antiplatelets; E66.01 Morbid (severe) obesity due to excess calories; Z76.5 Malingerer [conscious simulation]; Z88.9 Allergy status to unspecified drugs, medicaments and biological substances
CPT/HCPCS: 36415; 70450; 70544; 70549; 70553; 80053; 80069; 81241; 82947; 83090; 84484; 85025; 85300; 85610; 93005; 93010; 96374; 96375; 96376; 97110; 97112; 97116; 97162; 97166; 99285-25; A9270; A9270-GY; A9579; G0378; G0480; J1100; J1170; J1650; J2060; J2270; J3475; J7050; U0004

== ENCOUNTER 2020-07-18 16:00 | Observation (INO) | payer OTHER ==
[~2020-07-18] VITALS: Ht 167.6 cm; Wt 105.5 kg
[~2020-07-18 16:00] MED LIST changes: +CYCL10 PO; +LORAZEPAM0.5 MG PO; +LOSARTAN POTASS50 M1 PO
[2020-07-18 16:41] LABS: BASOPHILS ABSOLUTE AUTO 0.06 K/mm3 (0.00-0.23); BASOPHILS PERCENT AUTO 1 % (0-2); EOSINOPHILS ABSOLUTE AUTO 0.08 K/mm3 (0.00-0.68); EOSINOPHILS PERCENT AUTO 1 % (0-6); Hematocrit 50.5 % (33.0-51.0); IMMATURE GRAN ABSOLUTE AUTO 0.05 K/mm3 (0.00-0.10); IMMATURE GRAN PERCENT AUTO 0 % (0-1); LYMPHOCYTES ABSOLUTE AUTO 1.77 K/mm3 (0.84-5.20); LYMPHOCYTES PERCENT AUTO 14 % (21-46); MONOCYTES ABSOLUTE AUTO 0.61 K/mm3 (0.16-1.47); MONOCYTES PERCENT AUTO 5 % (4-13); Mean Corpuscular HGB Conc 31.7 g/dL (31.5-36.5); Mean Corpuscular Volume 88 fL (80-100); Mean Platelet Volume 10.9 fL (9.1-12.4); NEUTROPHILS ABSOLUTE AUTO 9.77 K/mm3 (1.96-9.15); NEUTROPHILS PERCENT AUTO 79 % (41-73); Platelet Count 214 K/mm3 (150-400); RDW Coefficient Variation 13.3 % (11.7-14.2); RDW Standard Deviation 42.9 fL (35.1-46.3); Red Blood Cell Count 5.71 M/mm3 (3.80-5.20); White Blood Cell Count 12.34 K/mm3 (4.00-11.30)
[2020-07-18 17:00] LABS: Alanine Aminotransfer (ALT/SGP 19 U/L (12-78); Albumin, Blood 3.8 g/dL (3.4-5.0); Albumin/Globulin Ratio 0.9 (0.8-1.8); Alk Phos 76 U/L (50-136); Anion Gap 8 mmol/L (6-16); Aspartate Aminotrans (AST/SGOT 17 U/L (12-37); Bilirubin, Total 0.4 mg/dL (0.1-1.0); Blood Urea Nitrogen 8 mg/dL (8-24); Bun/Creatinine Ratio 8.5 (12.0-20.0); CO2, Blood 24 mmol/L (21-32); Calcium, Blood 9.1 mg/dL (8.5-10.1); Chloride, Blood 106 mmol/L (98-108); Creatinine, Blood 0.94 mg/dL (0.40-1.00); Globulin, Blood 4.1 g/dL (2.2-4.0); Glomerular Filtration Rate >60 (60-); Glucose, Blood 99 mg/dL (70-99); Potassium, Blood 3.4 mmol/L (3.5-5.5); Sodium, Blood 138 mmol/L (136-145); Total Protein, Blood 7.9 g/dL (6.4-8.2)
[2020-07-18] MEDS ORDERED: LAMOTRIGINE25 M2 PO (21:31)
[2020-07-18] MEDS ORDERED: OXYCODONE-ACET1 EAC2 PO (21:35)
--- NOTE | 2020-07-18 23:52 | NUR ---
ASSUMED PT CARE AT 2250 PT ARRIVED ON UNIT ALERT AND ORIENTED. SPEAKING IN FULL SENTENCES. DENIES SOB AND CHEST PAIN. C/O 10/10 HEADACHE PAIN. NITRO GTT AT 20MCG/MIN. SBP'S 130'S; THEREFORE, TITRATED NITRO GTT DOWN TO 10MCG/MIN. SBP'S REMAINED AROUND PT'S BASELINE, WHICH SHE STATES ANYWHERE FROM 140-160'S SYSTOLIC. THEREFORE, TURNED OFF NITRO GTT; AND BP AND REMAINED STABLE. WILL TRANSITION TO LABETOLOL PUSH IF NEEDED. MEDICATED WITH MORHPHINE D/T HEADACHE PAIN WITH MINIMAL EFFECT. PT STATES SHE TAKES PERCOCET 10-325MG Q4 HOURS AT HOME FOR HER CHRONIC UPPER ABDOMINAL/CHEST PAIN SECONDARY TO HER PAST SURGICAL HX. WILL ATTEMPT TO CALL DR. WELLS FOR ORDERS TO REINSTATE PERCOCET. CALL LIGHT WITHIN REACH. PT ABLE TO MAKE NEEDS KNOWN.
[2020-07-19 02:05] LABS: BASOPHILS ABSOLUTE AUTO 0.06 K/mm3 (0.00-0.23); BASOPHILS PERCENT AUTO 1 % (0-2); EOSINOPHILS ABSOLUTE AUTO 0.15 K/mm3 (0.00-0.68); EOSINOPHILS PERCENT AUTO 1 % (0-6); Hematocrit 44.7 % (33.0-51.0); Hemoglobin 14.1 g/dL (11.5-16.0); IMMATURE GRAN ABSOLUTE AUTO 0.06 K/mm3 (0.00-0.10); IMMATURE GRAN PERCENT AUTO 1 % (0-1); LYMPHOCYTES ABSOLUTE AUTO 2.66 K/mm3 (0.84-5.20); LYMPHOCYTES PERCENT AUTO 22 % (21-46); MONOCYTES ABSOLUTE AUTO 0.85 K/mm3 (0.16-1.47); MONOCYTES PERCENT AUTO 7 % (4-13); Mean Corpuscular HGB 28.1 pg (26.0-34.0); Mean Corpuscular HGB Conc 31.5 g/dL (31.5-36.5); Mean Corpuscular Volume 89 fL (80-100); Mean Platelet Volume 10.7 fL (9.1-12.4); NEUTROPHILS PERCENT AUTO 68 % (41-73); Platelet Count 189 K/mm3 (150-400); RDW Coefficient Variation 13.4 % (11.7-14.2); RDW Standard Deviation 43.8 fL (35.1-46.3); Red Blood Cell Count 5.02 M/mm3 (3.80-5.20); White Blood Cell Count 11.88 K/mm3 (4.00-11.30)
[2020-07-19 02:20] LABS: Alanine Aminotransfer (ALT/SGP 19 U/L (12-78); Albumin, Blood 3.2 g/dL (3.4-5.0); Alk Phos 65 U/L (50-136); Anion Gap 0 mmol/L (6-16); Aspartate Aminotrans (AST/SGOT 18 U/L (12-37); Bilirubin, Total 0.3 mg/dL (0.1-1.0); Blood Urea Nitrogen 8 mg/dL (8-24); Bun/Creatinine Ratio 8.4 (12.0-20.0); CO2, Blood 32 mmol/L (21-32); CPK Creatine Kinase 38 U/L (26-193); Calcium, Blood 8.3 mg/dL (8.5-10.1); Chloride, Blood 109 mmol/L (98-108); Creatinine, Blood 0.95 mg/dL (0.40-1.00); Globulin, Blood 3.3 g/dL (2.2-4.0); Glomerular Filtration Rate >60 (60-); Glucose, Blood 89 mg/dL (70-99); Potassium, Blood 3.2 mmol/L (3.5-5.5); Sodium, Blood 141 mmol/L (136-145); Total Protein, Blood 6.5 g/dL (6.4-8.2); Troponin I 0.021 ng/mL (0.000-0.040)
--- NOTE | 2020-07-19 05:04 | NUR ---
END OF SHIFT SUMMARY NITRO GTT TURNED OFF SHORTLY AFTER ARRIVAL TO UNIT AND HAS SINCE REMAINED OFF. PT WOKE UP C/O 05/25 EPIGASTRIC/CHEST PAIN THAT IS CHRONIC FOR HER. NO CHANGE TO BP'S, HR, OR RHYTHM; THEREFORE, MEDICATED WITH 2MG OF MORPHINE PER ORDERS. PT HAS BEEN C/O NAUSEA; HOWEVER, DENIES ANY PHARMACOLOGIC INTERVENTION; SPRITE GIVEN. PT IS WARM AND DRY; NOT DIAPHORETIC. TROPONINS ARE TRENDING DOWN. REPORT GIVEN TO VIRGINIA GRACE. BELONGINGS BEING SENT WITH PT.
--- NOTE | 2020-07-19 05:30 | NUR ---
SHIFT SUMMARY LYING IN SEMI FOWLERS WITH EYES OPEN. AAO X4, FERGUSON, FOLLOWES ALL COMMANDS. ORIENTED TO ROOM, CALL SYSTEM, AND POC, VOICES UNDERSTANDING. RESPIRATINS EVEN AND UNLABORED ON ROOM AIR, LUNG SOUNDS CLEAR BILATERALLY. ABDOMEN SOFT AND NONDISTENDED, BOWEL SOUNDS NOTED IN ALL QUADS. STATES CP/EPIGASTRIC PAIN MEDICATED IN ICU HAD RESOLVED. RIGHT HAND 20G PIV IS PATENT, FLUSHING WITH EASE WHILE INFUSING NS @75ML/HR X1 BAG. LEFT HAND 20G SL PIV IS PATENT, FLUSHING WITH EASE. CONTINENT OF BOWEL AND BLADDER, USES BATHROOM. DENIES FURTHER NEEDS OR WANTS AT THIS TIME. SAFETY MEASURES IN PLACE. WILL CONTINUE TO MONITOR AND GIVE HAND OFF TO ONCOMING SHIFT USING SBAR.
--- NOTE | 2020-07-19 07:50 | NUR ---
ASSUMED CARE OF PT- REPORT COMPLETED WITH NIGHT VIRGINIA GRACE. CALLED DR FLOR AFTER MORNING ASSESSMENT. PT BP DONE MANUALLY 150/96. PT C/O A LITTLE SOB SOME NUMBNESS STARTING IN THE LEFT LOWER JAW AND LEFT HAND FINGERS. LEFT HAND FIXED INCOME DIRECTOR IS WEAKER THAN THE RIGHT. SPOKE TO PT ABOUT HER MEDICAL Hx OF CVA SHE STATES NO RESIDUAL EFFECT WITH THE EXCEPTION OF AN OCCASSIONAL TWITCH IN HER LEFT LEG AND OCCASSIONAL WEAKNESS IN THE LEFT HAND. PT NOTED TO HAVE LEFT SIDED FACIAL DROOP, RIGHT EYE PT STATES HAS BLURRED VISION RIGHT PUPIL IS SMALLER THAN THE LEFT AND SLOWER TO RESPOND. SPOKE TO DR FLOR AND SHE WILL TAKE A LOOK AT THE PT. NO NEW ORDERS AT THIS TIME.
--- NOTE | 2020-07-19 08:30 | NUR ---
TRANSPORT ARRIVED TO TAKE PT TO CT SCAN. PT LEFT LEG NOW HAS SIGNIFICANT WEAKNESS AND LEFT AREM IS VERY HEAVY PER PT, PT WAS SLOW TO MOVE BOTH AND SEEMED TO BE USING A LOT OF EFFORT TO MOVE THEM. PT STILL ABLE TO STAND AT THIS TIME. WILL CTM WHENPT RETURNS TO MED FLOOR.
[2020-07-19 10:28] LABS: Troponin I 0.023 ng/mL (0.000-0.040)
--- NOTE | 2020-07-19 16:37 | NUR ---
TELEPSYCH APPT. SCHEDULED FOR [address] FLOR AWARE; STATED SHE'LL NOTIFY MONO ABEL WHO WILL BE COVERING THE PT AT THAT TIME. PATIENT AND BEDSIDE RN LEXUS UPDATED.
--- NOTE | 2020-07-19 17:27 | NUR ---
SHIFT SUMMARY- CT SCAN COMPLETED. DISCUSSED THE RESULTS WITH THE PT. PT STILL HAVING LEFT ARM AND LEG WEAKNESS. PT HAS C/O HEADACHE T/O THE SHIFT MEDICATED PER EMAR. PT STATED THE OXY SEEMS TO BE HAVING NO EFFECT ON THE HEADACHE OR CHEST PAIN. THE ONLY THING THAT IS WORKING IS THE MORPHINE. DR AWARE. PT HAS ALLERGY TO OTHER MIGRAINE MEDICATIONS. TELEPSYCH CONSULT SET UP BY ENGINEERING GEOLOGIST FOR 9PM TONIGHT. PT IS AWARE AND AGREEABLE. PT HAS HAD NO NOTABLE S&S OF DISTRESS WITH THE EXCEPTION OF HER PAIN. AWARE OF THE CP. PT HAS A CARDIAC STRESS TEST TOMORROW. SPOKE TO ARMAND GARCIA IN NUCLEAR MEDICINE; ALL NITRATES NEED TO BE HELD PRIOR TO THE TEST TOMORROW AT NOON THIS INCLUDES IMDUR WILL PASS ON TO NIGHT RN IN REPORT. PT IS TO BE NO CAFFIENE AT 2000 AND NPO EXCEPT WATER AND MEDS AFTER 2400. PLAN IS FOR THE STRESS PORTION OF THE TEST TOMORROW AND THE RESTING PORTION THE DAY AFTER, PT IS AWARE OF THE TESTS ORDERED.
--- NOTE | 2020-07-19 19:51 | NUR ---
TELE-PSYCH CONSULT COMPLETED PRIOR TO BEGINNING OF SHIFT.
[2020-07-20 05:06] LABS: CHOL/HDL RATIO 3.1; Cholesterol 155 mg/dL (50-200); HDL Cholesterol 50 mg/dL (>39); LDL/HDL RATIO 1.6; Low Density Lipoprotein Chol 78 mg/dL (0-110); Triglycerides 133 mg/dL (30-140); Very Low Density Lipoprot Chol 26 mg/dL (6-28)
--- NOTE | 2020-07-20 06:07 | NUR ---
SHIFT SUMMARY: IZABELA IS A&OX4. VSS, NO ACUTE EVENTS OVERNIGHT. SHE CONTINUES TO COMPLAIN OF 10/10 PAIN IN HER JAW, CHEST AND HEAD. SHE STATES THAT MEDICATIONS, INCLUDING NITROGLYCERIN, ARE NOT EFFECTIVE. SHE DID STATE THAT THE PERCOCET RELIEVED HER CHRONIC SUBSTERNAL CHEST PAIN. SHE REPORTS LEFT SIDED WEAKNESS FOR WHICH A CT SCAN WAS OBTAINED ON DAY SHIFT. SHE IS ABLE TO MAKE HER NEEDS KNOWN. SHE IS LYING IN BED WITH HER CALL LIGHT IN REACH. WILL REPORT TO DAY SHIFT RN.
--- NOTE | 2020-07-20 11:17 | NUR ---
0930 PT C/O PAIN CHEST MID LINE TO L AXILARY. JAW ON LEFT AND SOME ARM. CALLED DR FLOR. WILL NOT INCREASE PAIN MEDS. THIS PAIN CONTINUING OVER 2-3 MONTHS. NO NEW ORDERS. PENDING STRESS TEST THIS AM. MED PER EMAR.
--- NOTE | 2020-07-20 14:33 | NUR ---
PT RESTING, FACING WALL. STATES GETTING SOME SLEEP NOW. STATES PAIN SAME
--- NOTE | 2020-07-20 17:13 | NUR ---
PT CONTINUES TO STATES PAIN 8-9 RANGE FOR LAST 2-3 MONTHS. GI COCTAIL DID NOT HELP, PAIN MEDS DONT SEEM TO DROP HARDLY ANY. HAS BEEN NOTIFIED. PAIN IN MIDLINE CHEST TO AXILARY, L JAW AND SOMETIMES BACK. PT DID NOT ASK FOR PAIN MEDS WHEN BOYFRIEND HERE FOR COUPLE HOURS. DID VISIT WITH HER TODAY AND SHE TALKS FREELY ABOUT GROWING UPWITH HORSES. HER RAISING HER KIDS. STATES PAIN IS PRETTY MUCH SAME. NO NEW CONCERNS AT THIS TIME. PT REMAINS PLEASANT SMILING, TALKATIVE. BED IN LOW POSITION, CALL LITE IN REACH, CALLS APPROP
--- NOTE | 2020-07-21 04:33 | NUR ---
ATTENDANCE OFFICER SUMMARY A/OX4. PT CONTINUES TO C/O SUBSTERNAL CHEST PAIN, REFUSES NITRO. MEDICATED PER EMAR. CURRENTLY NPO, AWAITING STRESS TEST THIS AM. VSS. NO ACUTE CHANGES AT THIS TIME. BED IN LOWEST POSITION WITH CALL LIGHT IN REACH. WILL CONTINUE TO MONITOR AND REPORT TO ONCOMING RN.
--- NOTE | 2020-07-21 07:40 | NUR ---
PT PLEASANT COOP A/O TALKATIVE. STATES PAIN IN CHEST FROM MIDLINE WHERE PRIOR CABG INCISION, TO UNDER AXILARY THEN SKIPS TO L JAW. HAS BEEN PRESENT FOR 3 MONTHS. DESPITE MEDS, STATES NOT MUCH CHANGE OVERALL. STRESS TEST AT 0830 TODAY. LIGHTLY WEEKER STOCK OR DELIVERY CLERK ON LEFT, AND PEDAY PUSH ON LEFT. NO FACIAL DROOP NOTED. NO GARBLING OR CONFUSION NOTED. H/R REG, NO MURMER NOTED. PER TELE NSR AT 71. LUNGS CLEAR, RESP EASY, UNLABORED. ON R.A. BT X4 LAST BM YEST. VOIDS TO BATHROOM. INDEPENDANT IN ROOM. BED IN LOW POSITION, CALL LITE IN REACH, CALLS APPROP
[2020-07-21] MEDS ORDERED: NITR.4SL SL (16:08)
--- NOTE | 2020-07-21 16:45 | NUR ---
DISCHARGE REVIEWED WITH PT SHE VERBALIZED UNDERSTANDING MEDS AND INST. IV PULLED INTACT. TELE RETURNED. PT WHEELED TO DOOR AT 1645 BY AZALEA COLEMAN
== END 2020-07-21 16:41 | disposition home or self-care (01) ==
LOC: ER 16:00 → ICUW 16:01 → MEDS 07-19 05:23
PROVIDERS: Internal Medicine; Physician Assistant; ADMIT Internal Medicine
DX: R07.9 Chest pain, unspecified (principal); I25.10 Atherosclerotic heart disease of native coronary artery without angina pectoris; I16.0 Hypertensive urgency; I50.32 Chronic diastolic (congestive) heart failure; E87.6 Hypokalemia; I25.2 Old myocardial infarction; E78.5 Hyperlipidemia, unspecified; R53.1 Weakness; E66.9 Obesity, unspecified; Z68.33 Body mass index [BMI] 33.0-33.9, adult; Z95.1 Presence of aortocoronary bypass graft; Z86.73 Personal history of transient ischemic attack (TIA), and cerebral infarction without residual deficits; Z76.5 Malingerer [conscious simulation]; Z87.891 Personal history of nicotine dependence; Z95.5 Presence of coronary angioplasty implant and graft; Z95.2 Presence of prosthetic heart valve; Z79.02 Long term (current) use of antithrombotics/antiplatelets; Z79.82 Long term (current) use of aspirin; Z79.899 Other long term (current) drug therapy; Z88.0 Allergy status to penicillin; Z88.5 Allergy status to narcotic agent; Z88.8 Allergy status to other drugs, medicaments and biological substances; Z88.6 Allergy status to analgesic agent; Z91.018 Allergy to other foods; Z23 Encounter for immunization; Z20.828 Contact with and (suspected) exposure to other viral communicable diseases
CPT/HCPCS: 36415; 70450; 71045; 71275; 74175; 78452; 80053; 80061; 82550; 83036; 83735; 83880; 84484; 85025; 85730; 93005; 93010; 93017; 96372; 96374-59; 96375; 96376; 96376-59; 99285-25; A9270; A9270-GY; A9500; G0378; J0706; J1170; J1650; J2270; J2785; J7030; Q9967

== ENCOUNTER 2020-08-04 22:22 | Emergency (ER) | payer OTHER ==
[~2020-08-04] VITALS: Ht 167.6 cm; Wt 102.1 kg
[~2020-08-04 22:22] MED LIST changes: +LAMOTRIGINE25 M2 PO; +OXYCODONE-ACET1 EAC2 PO
[2020-08-04] MEDS ORDERED: CLIN150 PO (23:02)
[2020-08-04] MEDS ORDERED: Ativan1 MG PO (23:02)
[2020-08-04 23:06] LABS: BASOPHILS ABSOLUTE AUTO 0.05 K/mm3 (0.00-0.23); BASOPHILS PERCENT AUTO 0 % (0-2); EOSINOPHILS ABSOLUTE AUTO 0.12 K/mm3 (0.00-0.68); EOSINOPHILS PERCENT AUTO 1 % (0-6); Hematocrit 46.1 % (33.0-51.0); Hemoglobin 14.7 g/dL (11.5-16.0); IMMATURE GRAN ABSOLUTE AUTO 0.04 K/mm3 (0.00-0.10); IMMATURE GRAN PERCENT AUTO 0 % (0-1); LYMPHOCYTES PERCENT AUTO 13 % (21-46); MONOCYTES ABSOLUTE AUTO 0.69 K/mm3 (0.16-1.47); MONOCYTES PERCENT AUTO 6 % (4-13); Mean Corpuscular HGB 28.3 pg (26.0-34.0); Mean Corpuscular HGB Conc 31.9 g/dL (31.5-36.5); Mean Corpuscular Volume 89 fL (80-100); Mean Platelet Volume 10.5 fL (9.1-12.4); NEUTROPHILS ABSOLUTE AUTO 9.52 K/mm3 (1.96-9.15); NEUTROPHILS PERCENT AUTO 80 % (41-73); Platelet Count 258 K/mm3 (150-400); RDW Coefficient Variation 14.9 % (11.7-14.2); RDW Standard Deviation 47.4 fL (35.1-46.3); White Blood Cell Count 11.92 K/mm3 (4.00-11.30)
[2020-08-04 23:27] LABS: Alanine Aminotransfer (ALT/SGP 19 U/L (12-78); Albumin, Blood 3.7 g/dL (3.4-5.0); Albumin/Globulin Ratio 0.9 (0.8-1.8); Alk Phos 65 U/L (50-136); Anion Gap 5 mmol/L (6-16); Aspartate Aminotrans (AST/SGOT 14 U/L (12-37); Bilirubin, Total 0.6 mg/dL (0.1-1.0); Blood Urea Nitrogen 8 mg/dL (8-24); Bun/Creatinine Ratio 8.5 (12.0-20.0); CO2, Blood 26 mmol/L (21-32); Chloride, Blood 108 mmol/L (98-108); Creatinine, Blood 0.95 mg/dL (0.40-1.00); Glomerular Filtration Rate >60 (60-); Glucose, Blood 101 mg/dL (70-99); Potassium, Blood 3.5 mmol/L (3.5-5.5); Sodium, Blood 139 mmol/L (136-145); Total Protein, Blood 7.7 g/dL (6.4-8.2); Troponin I <0.015 ng/mL (0.000-0.040)
== END 2020-08-05 02:57 | disposition home or self-care (01) ==
LOC: ER 22:22
PROVIDERS: Emergency Medicine
DX: F41.9 Anxiety disorder, unspecified (principal); R07.9 Chest pain, unspecified; I25.2 Old myocardial infarction; I50.9 Heart failure, unspecified; I25.810 Atherosclerosis of coronary artery bypass graft(s) without angina pectoris; Z79.82 Long term (current) use of aspirin; Z79.02 Long term (current) use of antithrombotics/antiplatelets; Z79.899 Other long term (current) drug therapy; Z86.73 Personal history of transient ischemic attack (TIA), and cerebral infarction without residual deficits; Z95.5 Presence of coronary angioplasty implant and graft; Z95.1 Presence of aortocoronary bypass graft; Z88.8 Allergy status to other drugs, medicaments and biological substances; Z88.0 Allergy status to penicillin; Z88.6 Allergy status to analgesic agent; Z88.5 Allergy status to narcotic agent; Z88.4 Allergy status to anesthetic agent; Z91.048 Other nonmedicinal substance allergy status; Z87.891 Personal history of nicotine dependence
CPT/HCPCS: 36415; 71045; 80053; 84484; 85025; 93005; 93010; 96374; 96375; 99285-25; J2060; J2270

== ENCOUNTER 2020-08-06 13:25 | Emergency (ER) | payer OTHER ==
[~2020-08-06] VITALS: Ht 167.6 cm; Wt 102.1 kg
[~2020-08-06 13:25] MED LIST changes: +CLIN150 PO
[2020-08-06 13:49] LABS: BASOPHILS ABSOLUTE AUTO 0.04 K/mm3 (0.00-0.23); BASOPHILS PERCENT AUTO 0 % (0-2); EOSINOPHILS ABSOLUTE AUTO 0.13 K/mm3 (0.00-0.68); EOSINOPHILS PERCENT AUTO 1 % (0-6); Hematocrit 45.4 % (33.0-51.0); Hemoglobin 14.5 g/dL (11.5-16.0); IMMATURE GRAN ABSOLUTE AUTO 0.03 K/mm3 (0.00-0.10); IMMATURE GRAN PERCENT AUTO 0 % (0-1); LYMPHOCYTES PERCENT AUTO 11 % (21-46); MONOCYTES PERCENT AUTO 5 % (4-13); Mean Corpuscular HGB 28.4 pg (26.0-34.0); Mean Corpuscular HGB Conc 31.9 g/dL (31.5-36.5); Mean Corpuscular Volume 89 fL (80-100); Mean Platelet Volume 10.6 fL (9.1-12.4); NEUTROPHILS ABSOLUTE AUTO 10.97 K/mm3 (1.96-9.15); NEUTROPHILS PERCENT AUTO 83 % (41-73); Platelet Count 241 K/mm3 (150-400); RDW Coefficient Variation 15.1 % (11.7-14.2); RDW Standard Deviation 48.9 fL (35.1-46.3); White Blood Cell Count 13.27 K/mm3 (4.00-11.30)
[2020-08-06 14:05] LABS: Alanine Aminotransfer (ALT/SGP 17 U/L (12-78); Albumin, Blood 3.6 g/dL (3.4-5.0); Albumin/Globulin Ratio 0.9 (0.8-1.8); Alk Phos 61 U/L (50-136); Anion Gap 8 mmol/L (6-16); Aspartate Aminotrans (AST/SGOT 14 U/L (12-37); Bilirubin, Total 0.6 mg/dL (0.1-1.0); Blood Urea Nitrogen 9 mg/dL (8-24); Bun/Creatinine Ratio 10.4 (12.0-20.0); CO2, Blood 22 mmol/L (21-32); Calcium, Blood 9.1 mg/dL (8.5-10.1); Chloride, Blood 110 mmol/L (98-108); Creatinine, Blood 0.87 mg/dL (0.40-1.00); Glomerular Filtration Rate >60 (60-); Glucose, Blood 131 mg/dL (70-99); Potassium, Blood 3.4 mmol/L (3.5-5.5); Sodium, Blood 140 mmol/L (136-145); Total Protein, Blood 7.6 g/dL (6.4-8.2); Troponin I <0.015 ng/mL (0.000-0.040)
== END 2020-08-06 15:50 | disposition home or self-care (01) ==
LOC: ER 13:25
PROVIDERS: Emergency Medicine
DX: R07.9 Chest pain, unspecified (principal); I50.9 Heart failure, unspecified; I25.10 Atherosclerotic heart disease of native coronary artery without angina pectoris; Z79.02 Long term (current) use of antithrombotics/antiplatelets; Z79.82 Long term (current) use of aspirin; Z79.899 Other long term (current) drug therapy; Z88.0 Allergy status to penicillin; Z88.8 Allergy status to other drugs, medicaments and biological substances; Z88.5 Allergy status to narcotic agent; Z88.4 Allergy status to anesthetic agent; Z91.048 Other nonmedicinal substance allergy status; Z88.6 Allergy status to analgesic agent; Z91.018 Allergy to other foods; Z86.73 Personal history of transient ischemic attack (TIA), and cerebral infarction without residual deficits; Z87.891 Personal history of nicotine dependence
CPT/HCPCS: 36415; 71046; 80053; 83880; 84484; 85025; 93005; 93010; 96374; 99285-25; J2270

== ENCOUNTER 2020-08-09 15:36 | Emergency (ER) | payer OTHER ==
[~2020-08-09] VITALS: Ht 167.6 cm; Wt 102.1 kg
== END 2020-08-09 17:05 | disposition home or self-care (01) ==
LOC: ER 15:36
DX: K04.7 Periapical abscess without sinus (principal); I25.810 Atherosclerosis of coronary artery bypass graft(s) without angina pectoris; I50.9 Heart failure, unspecified; E78.5 Hyperlipidemia, unspecified; Z79.02 Long term (current) use of antithrombotics/antiplatelets; Z79.899 Other long term (current) drug therapy; Z79.82 Long term (current) use of aspirin; Z88.0 Allergy status to penicillin; Z88.6 Allergy status to analgesic agent; Z88.5 Allergy status to narcotic agent; Z88.8 Allergy status to other drugs, medicaments and biological substances; Z91.048 Other nonmedicinal substance allergy status; Z91.018 Allergy to other foods; Z86.73 Personal history of transient ischemic attack (TIA), and cerebral infarction without residual deficits; Z95.1 Presence of aortocoronary bypass graft; Z95.5 Presence of coronary angioplasty implant and graft
CPT/HCPCS: 99282

== ENCOUNTER 2020-08-29 10:59 | Emergency (ER) | payer OTHER ==
[~2020-08-29] VITALS: Ht 167.6 cm; Wt 102.1 kg
[~2020-08-29 10:59] MED LIST changes: -CARV25 PO; -FUROSEMIDE20 MG PO; -LAMOTRIGINE25 M2 PO; -OXYCODONE-ACET1 EAC2 PO; -PLAVIX75 MG PO; -SPIR50 PO; -ST. JOSEPH ASPI81 MG PO
[2020-08-29 11:31] LABS: BASOPHILS ABSOLUTE AUTO 0.02 K/mm3 (0.00-0.23); BASOPHILS PERCENT AUTO 0 % (0-2); EOSINOPHILS ABSOLUTE AUTO 0.15 K/mm3 (0.00-0.68); EOSINOPHILS PERCENT AUTO 2 % (0-6); Hemoglobin 14.3 g/dL (11.5-16.0); IMMATURE GRAN ABSOLUTE AUTO 0.02 K/mm3 (0.00-0.10); IMMATURE GRAN PERCENT AUTO 0 % (0-1); LYMPHOCYTES ABSOLUTE AUTO 1.11 K/mm3 (0.84-5.20); LYMPHOCYTES PERCENT AUTO 13 % (21-46); MONOCYTES ABSOLUTE AUTO 0.82 K/mm3 (0.16-1.47); MONOCYTES PERCENT AUTO 9 % (4-13); Mean Corpuscular HGB 28.5 pg (26.0-34.0); Mean Corpuscular HGB Conc 31.8 g/dL (31.5-36.5); Mean Corpuscular Volume 90 fL (80-100); NEUTROPHILS ABSOLUTE AUTO 6.74 K/mm3 (1.96-9.15); NEUTROPHILS PERCENT AUTO 76 % (41-73); Platelet Count 174 K/mm3 (150-400); RDW Coefficient Variation 15.4 % (11.7-14.2); RDW Standard Deviation 49.9 fL (35.1-46.3); Red Blood Cell Count 5.02 M/mm3 (3.80-5.20); White Blood Cell Count 8.86 K/mm3 (4.00-11.30)
[2020-08-29 11:47] LABS: Alanine Aminotransfer (ALT/SGP 24 U/L (12-78); Albumin, Blood 3.5 g/dL (3.4-5.0); Albumin/Globulin Ratio 0.8 (0.8-1.8); Alk Phos 61 U/L (50-136); Anion Gap 6 mmol/L (6-16); Aspartate Aminotrans (AST/SGOT 32 U/L (12-37); Bilirubin, Total 0.8 mg/dL (0.1-1.0); Blood Urea Nitrogen 8 mg/dL (8-24); Bun/Creatinine Ratio 9.4 (12.0-20.0); CO2, Blood 25 mmol/L (21-32); Calcium, Blood 8.8 mg/dL (8.5-10.1); Chloride, Blood 109 mmol/L (98-108); Creatinine, Blood 0.86 mg/dL (0.40-1.00); Globulin, Blood 4.3 g/dL (2.2-4.0); Glomerular Filtration Rate >60 (60-); Glucose, Blood 115 mg/dL (70-99); Potassium, Blood 3.9 mmol/L (3.5-5.5); Sodium, Blood 140 mmol/L (136-145); Total Protein, Blood 7.8 g/dL (6.4-8.2)
[2020-08-29] MEDS ORDERED: Cleocin HCl300 MG PO (14:39)
--- NOTE | 2020-08-29 17:10 | NUR ---
Rec'd a call from Leatha at [employer] [facility] based out of [place]. Leatha reports that [place] is out of their coverage area and is asking if Nat's infusions could be completed at [facility] in [place]. Spoke with Leela at [facility]'s infusion clinic in [place]. They are unable to accomodate TID IV dosing of antibiotics. Called Leatha back to let her know that [employer] is not an option. Leatha will contact Nat to make transportation arrangements. Leatha reports getting Nat to the [facility] in [place] in the morning isn't a problem, however the return trip at midnight is the issue. Rec'd a call from Nat from [facility] ph# [phone]. Nat's cleocin will require a pre auth. Faxed order and ER physician notes from Nat's ER visit today faxed to Nat at [facility] fax # [phone]. Plan at this time is for Nat to come to the [facility] at [facility] tomorrow morning at 0800 to begin her TID cleocin dosing for the next two days.
[2020-12-14] MEDS ORDERED: Percocet 5-3251 EACH PO (13:44)
== END 2020-08-29 14:45 | disposition home or self-care (01) ==
LOC: ER 10:59
PROVIDERS: Emergency Medicine
DX: R03.0 Elevated blood-pressure reading, without diagnosis of hypertension (principal); K08.89 Other specified disorders of teeth and supporting structures; I50.9 Heart failure, unspecified; I25.10 Atherosclerotic heart disease of native coronary artery without angina pectoris; Z88.8 Allergy status to other drugs, medicaments and biological substances; Z88.6 Allergy status to analgesic agent; Z88.5 Allergy status to narcotic agent; Z88.4 Allergy status to anesthetic agent; Z91.018 Allergy to other foods; Z91.02 Food additives allergy status; Z79.899 Other long term (current) drug therapy; Z79.82 Long term (current) use of aspirin; Z86.73 Personal history of transient ischemic attack (TIA), and cerebral infarction without residual deficits; Z95.5 Presence of coronary angioplasty implant and graft; Z87.891 Personal history of nicotine dependence
CPT/HCPCS: 36415; 71046; 80053; 84484; 85025; 93005; 93010; 96365; 96375; 99283-25; A9270; J1170

== ENCOUNTER 2020-08-29 23:54 | Emergency (ER) | payer OTHER ==
[~2020-08-29] VITALS: Ht 167.6 cm; Wt 102.1 kg
[~2020-08-29 23:54] MED LIST changes: +Cleocin HCl300 MG PO
[2020-08-30 01:55] LABS: BASOPHILS ABSOLUTE AUTO 0.03 K/mm3 (0.00-0.23); BASOPHILS PERCENT AUTO 0 % (0-2); EOSINOPHILS ABSOLUTE AUTO 0.14 K/mm3 (0.00-0.68); EOSINOPHILS PERCENT AUTO 2 % (0-6); Hematocrit 43.7 % (33.0-51.0); Hemoglobin 13.5 g/dL (11.5-16.0); IMMATURE GRAN ABSOLUTE AUTO 0.08 K/mm3 (0.00-0.10); IMMATURE GRAN PERCENT AUTO 1 % (0-1); LYMPHOCYTES ABSOLUTE AUTO 1.46 K/mm3 (0.84-5.20); LYMPHOCYTES PERCENT AUTO 17 % (21-46); MONOCYTES ABSOLUTE AUTO 0.83 K/mm3 (0.16-1.47); MONOCYTES PERCENT AUTO 10 % (4-13); Mean Corpuscular HGB 27.7 pg (26.0-34.0); Mean Corpuscular HGB Conc 30.9 g/dL (31.5-36.5); Mean Corpuscular Volume 90 fL (80-100); Mean Platelet Volume 11.1 fL (9.1-12.4); NEUTROPHILS ABSOLUTE AUTO 6.01 K/mm3 (1.96-9.15); NEUTROPHILS PERCENT AUTO 70 % (41-73); Platelet Count 190 K/mm3 (150-400); RDW Coefficient Variation 15.4 % (11.7-14.2); RDW Standard Deviation 50.6 fL (35.1-46.3); Red Blood Cell Count 4.88 M/mm3 (3.80-5.20); White Blood Cell Count 8.55 K/mm3 (4.00-11.30)
[2020-08-30 02:12] LABS: Alanine Aminotransfer (ALT/SGP 21 U/L (12-78); Albumin, Blood 3.7 g/dL (3.4-5.0); Alk Phos 58 U/L (50-136); Anion Gap 6 mmol/L (6-16); Aspartate Aminotrans (AST/SGOT 9 U/L (12-37); Bilirubin, Total 0.5 mg/dL (0.1-1.0); Blood Urea Nitrogen 9 mg/dL (8-24); Bun/Creatinine Ratio 9.4 (12.0-20.0); CO2, Blood 26 mmol/L (21-32); Calcium, Blood 8.8 mg/dL (8.5-10.1); Chloride, Blood 108 mmol/L (98-108); Creatinine, Blood 0.95 mg/dL (0.40-1.00); Globulin, Blood 3.8 g/dL (2.2-4.0); Glomerular Filtration Rate >60 (60-); Glucose, Blood 114 mg/dL (70-99); Magnesium, Blood 2.2 mg/dL (1.6-2.4); Potassium, Blood 3.2 mmol/L (3.5-5.5); Sodium, Blood 140 mmol/L (136-145); Total Protein, Blood 7.5 g/dL (6.4-8.2); Troponin I <0.015 ng/mL (0.000-0.040)
[2020-12-14] MEDS ORDERED: Percocet 5-3251 EACH PO (13:44)
== END 2020-08-30 03:15 | disposition home or self-care (01) ==
LOC: ER 23:54
PROVIDERS: Emergency Medicine
DX: K04.7 Periapical abscess without sinus (principal); I16.0 Hypertensive urgency; I11.0 Hypertensive heart disease with heart failure; I50.9 Heart failure, unspecified; I25.10 Atherosclerotic heart disease of native coronary artery without angina pectoris; I25.2 Old myocardial infarction; I25.810 Atherosclerosis of coronary artery bypass graft(s) without angina pectoris; Z79.899 Other long term (current) drug therapy; Z79.02 Long term (current) use of antithrombotics/antiplatelets; Z79.82 Long term (current) use of aspirin; Z88.0 Allergy status to penicillin; Z88.6 Allergy status to analgesic agent; Z88.8 Allergy status to other drugs, medicaments and biological substances; Z88.5 Allergy status to narcotic agent; Z91.018 Allergy to other foods; Z86.73 Personal history of transient ischemic attack (TIA), and cerebral infarction without residual deficits; Z95.1 Presence of aortocoronary bypass graft; Z95.5 Presence of coronary angioplasty implant and graft; Z87.891 Personal history of nicotine dependence
CPT/HCPCS: 36415; 80053; 83735; 84484; 85025; 93005; 93010; 96365; 99282-25; A9270

== ENCOUNTER 2020-08-30 07:50 | Day surgery (SDC) | payer OTHER ==
--- NOTE | 2020-08-30 09:23 | NUR ---
IV LEFT IN PLACE. PT TO RECEIVE ANTIBIOTICS TID X2 DAYS.
[2020-12-14] MEDS ORDERED: Percocet 5-3251 EACH PO (13:44)
== END 2020-08-30 16:50 | disposition home or self-care (01) ==
LOC: ATC 07:50
DX: K04.7 Periapical abscess without sinus (principal); I11.0 Hypertensive heart disease with heart failure; I50.9 Heart failure, unspecified; I25.10 Atherosclerotic heart disease of native coronary artery without angina pectoris; I25.2 Old myocardial infarction; Z95.1 Presence of aortocoronary bypass graft; Z95.5 Presence of coronary angioplasty implant and graft; Z87.891 Personal history of nicotine dependence; Z88.6 Allergy status to analgesic agent; Z91.018 Allergy to other foods; Z88.0 Allergy status to penicillin; Z88.8 Allergy status to other drugs, medicaments and biological substances; Z79.2 Long term (current) use of antibiotics; Z79.02 Long term (current) use of antithrombotics/antiplatelets; Z79.82 Long term (current) use of aspirin; Z79.891 Long term (current) use of opiate analgesic; Z79.899 Other long term (current) drug therapy
CPT/HCPCS: 96365

== ENCOUNTER 2020-08-30 22:55 | Inpatient (IN) | payer OTHER ==
[~2020-08-30] VITALS: Ht 167.6 cm; Wt 104.0 kg
[2020-08-31 00:11] LABS: BASOPHILS ABSOLUTE AUTO 0.04 K/mm3 (0.00-0.23); BASOPHILS PERCENT AUTO 0 % (0-2); EOSINOPHILS ABSOLUTE AUTO 0.12 K/mm3 (0.00-0.68); EOSINOPHILS PERCENT AUTO 1 % (0-6); Hematocrit 44.4 % (33.0-51.0); IMMATURE GRAN ABSOLUTE AUTO 0.02 K/mm3 (0.00-0.10); IMMATURE GRAN PERCENT AUTO 0 % (0-1); LYMPHOCYTES ABSOLUTE AUTO 1.51 K/mm3 (0.84-5.20); LYMPHOCYTES PERCENT AUTO 16 % (21-46); MONOCYTES ABSOLUTE AUTO 0.94 K/mm3 (0.16-1.47); MONOCYTES PERCENT AUTO 10 % (4-13); Mean Corpuscular HGB 27.9 pg (26.0-34.0); Mean Corpuscular HGB Conc 31.5 g/dL (31.5-36.5); Mean Corpuscular Volume 89 fL (80-100); Mean Platelet Volume 10.7 fL (9.1-12.4); NEUTROPHILS ABSOLUTE AUTO 6.76 K/mm3 (1.96-9.15); NEUTROPHILS PERCENT AUTO 72 % (41-73); Platelet Count 228 K/mm3 (150-400); RDW Coefficient Variation 15.4 % (11.7-14.2); Red Blood Cell Count 5.01 M/mm3 (3.80-5.20); White Blood Cell Count 9.39 K/mm3 (4.00-11.30)
[2020-08-31 00:32] LABS: Alanine Aminotransfer (ALT/SGP 23 U/L (12-78); Albumin, Blood 3.7 g/dL (3.4-5.0); Albumin/Globulin Ratio 0.9 (0.8-1.8); Alk Phos 60 U/L (50-136); Anion Gap 8 mmol/L (6-16); Aspartate Aminotrans (AST/SGOT 22 U/L (12-37); Bilirubin, Total 0.4 mg/dL (0.1-1.0); Blood Urea Nitrogen 10 mg/dL (8-24); Bun/Creatinine Ratio 10.5 (12.0-20.0); CO2, Blood 25 mmol/L (21-32); Calcium, Blood 8.7 mg/dL (8.5-10.1); Chloride, Blood 107 mmol/L (98-108); Creatinine, Blood 0.95 mg/dL (0.40-1.00); Globulin, Blood 4.2 g/dL (2.2-4.0); Glomerular Filtration Rate >60 (60-); Glucose, Blood 84 mg/dL (70-99); Potassium, Blood 3.4 mmol/L (3.5-5.5); Sodium, Blood 140 mmol/L (136-145); Total Protein, Blood 7.9 g/dL (6.4-8.2)
[2020-08-31 03:31] LABS: International Normalized Ratio 1.02; Prothrombin Time Results 10.9 Sec (9.7-11.5)
[2020-08-31 06:13] LABS: Source, Urine Clean Catch
[2020-08-31 06:27] LABS: Appearance, Urine Clear (Clear); Bilirubin, Urine Neg (Neg); Blood, Urine 5+ (Neg); Color, Urine Yellow (P-Yellow); Glucose Qualitative, Urine Neg (Neg); Ketones, Urine Neg (Neg); Leukocyte Esterase, Urine 1+ (Neg); Nitrite, Urine Neg (Neg); Protein, Urine 2+ (Neg); Urobilinogen, Urine NORM (Normal)
[2020-08-31 06:42] LABS: Red Blood Cells, Urine TNTC /hpf (0-2)
[2020-08-31 06:43] LABS: Bacteria Few /hpf; Squamous Epithelial Cells Few /hpf (Few)
[2020-08-31 10:04] LABS: Albumin, Blood 3.4 g/dL (3.4-5.0); Anion Gap 9 mmol/L (6-16); Blood Urea Nitrogen 8 mg/dL (8-24); Bun/Creatinine Ratio 9.7 (12.0-20.0); CHOL/HDL RATIO 3.3; CO2, Blood 23 mmol/L (21-32); Calcium, Blood 8.7 mg/dL (8.5-10.1); Chloride, Blood 106 mmol/L (98-108); Cholesterol 116 mg/dL (50-200); Creatinine, Blood 0.83 mg/dL (0.40-1.00); Glomerular Filtration Rate >60 (60-); Glucose, Blood 153 mg/dL (70-99); HDL Cholesterol 35 mg/dL (>39); LDL/HDL RATIO 1.6; Low Density Lipoprotein Chol 56 mg/dL (0-110); Phosphorus, Blood 3.2 mg/dL (2.5-4.9); Potassium, Blood 3.1 mmol/L (3.5-5.5); Sodium, Blood 138 mmol/L (136-145); Triglycerides 125 mg/dL (30-140); Very Low Density Lipoprot Chol 25 mg/dL (6-28)
--- NOTE | 2020-08-31 18:20 | NUR ---
PATIENT IS ALERT AND ORIENTED AND COOPERATIVE WITH CARE. C/O LEFT SIDES WEAKNESS AND LEFT SIDE FACIAL NUMBNESS. PATIENT IS INDEPENDENT IN HER ROOM. PHYSICAL THERAPY ASSESSED THE PATIENT THIS MORNING. TELE IS IN PLACE NSR AT 69 BPM. PATIENT C/O A HEADACHE, TREATED PER EMAR. DR. TAPIA ORDERED ICE THERAPY TO HELP WITH HEAD PAIN, ICE APPLIED. PATIENT CALLS APPROPRIATELY. WILL CONTINUE TO MONITOR.
--- NOTE | 2020-09-01 04:11 | NUR ---
SHIFT SUMMARY NO ACUTE CHANGES THIS SHIFT, C/O CONTINUING HEADACHE, ICE PK APPLIED, MEDICATED PER MAR FOR PAIN (Q4), ATIVAN X1 FOR ANXIETY, IND TO BR, SLEPT T/O THE NIGHT WAKING TO REQ PAIN MEDS AND RETURNING TO SLEEP EASILY, SLEEPING AT THIS TIME, CALL LIGHT IN REACH, WILL CONT TO MONITOR UNTIL REPORT GIVEN TO DAY RN.
[2020-09-01 05:36] LABS: Albumin, Blood 3.1 g/dL (3.4-5.0); Anion Gap 7 mmol/L (6-16); Blood Urea Nitrogen 10 mg/dL (8-24); Bun/Creatinine Ratio 11.6 (12.0-20.0); CO2, Blood 26 mmol/L (21-32); Calcium, Blood 8.5 mg/dL (8.5-10.1); Chloride, Blood 106 mmol/L (98-108); Creatinine, Blood 0.86 mg/dL (0.40-1.00); Glomerular Filtration Rate >60 (60-); Glucose, Blood 96 mg/dL (70-99); Magnesium, Blood 2.2 mg/dL (1.6-2.4); Phosphorus, Blood 3.7 mg/dL (2.5-4.9); Potassium, Blood 3.1 mmol/L (3.5-5.5); Sodium, Blood 139 mmol/L (136-145)
--- NOTE | 2020-09-01 18:54 | NUR ---
SHIFT SUMMARY PATIENT MEDICATED Q4 FOR PAIN. DENIES NAUSEA AND SHORTNESS OF BREATH. REPORTS PAIN 10/10. NAPPING MOST OF SHIFT. PATIENT REPORTS SHE CANNOT WALK OR USE HER LEFT LEG/ARM. PATIENT REPORTS SHE HAS NOT VOIDED SINCE ARRIVING IN THE ED. UNMEASURED VOID FOUND TWICE IN TOILET TODAY. PATIENT HAS HAD NO VISITORS. POSSIBLE SNF DISCHARGE. PT CONSULTED.
--- NOTE | 2020-09-01 23:15 | NUR ---
PT C/O LEFT SIDED FACIAL NUMBNESS AND L.SIDE WEAKNESS BUT IS OBSERVED USING L.ARM AND HAND W/NO APPARENT DIFFICULTY. SHE WAS SEEN PUSHING HERSELF UP IN BED W/L.ARM, ADJUSTING SHIRT AND OPENING CRACKER PACKETS W/L.HAND AND HOLDING PHONE TO L.EAR W/L.HAND. SHE ALSO DENIES ABILITY TO WALK D/T "L.LEG WEAKNESS" BUT HAS BEEN INTO RESTROOM TO VOID SEVERAL TIMES BY HERSELF AND MOST RECENTLY WAS OBSERVED AMBULATING BACK TO BED WHILE PUSHING HER IV POLE W/HER L.ARM AND APPEARED TO HAVE NO DEFECITS OR TROUBLE WALKING.
--- NOTE | 2020-09-01 23:17 | NUR ---
Mobility I heard toilet flush from pt room, as I entered room she was walking back to the bed with no problems. She was pushing IV pole with left hand with no problems moving hand or arm. When I did her vitals I asked her to lift her left arm to put the B/P cuff on which she did with no problems.
[2020-09-02 04:44] LABS: BASOPHILS ABSOLUTE AUTO 0.03 K/mm3 (0.00-0.23); BASOPHILS PERCENT AUTO 0 % (0-2); EOSINOPHILS ABSOLUTE AUTO 0.22 K/mm3 (0.00-0.68); EOSINOPHILS PERCENT AUTO 3 % (0-6); Hematocrit 40.4 % (33.0-51.0); Hemoglobin 12.5 g/dL (11.5-16.0); IMMATURE GRAN ABSOLUTE AUTO 0.03 K/mm3 (0.00-0.10); IMMATURE GRAN PERCENT AUTO 0 % (0-1); LYMPHOCYTES ABSOLUTE AUTO 2.05 K/mm3 (0.84-5.20); LYMPHOCYTES PERCENT AUTO 25 % (21-46); MONOCYTES ABSOLUTE AUTO 0.69 K/mm3 (0.16-1.47); MONOCYTES PERCENT AUTO 9 % (4-13); Mean Corpuscular HGB 28.2 pg (26.0-34.0); Mean Corpuscular HGB Conc 30.9 g/dL (31.5-36.5); Mean Corpuscular Volume 91 fL (80-100); Mean Platelet Volume 10.6 fL (9.1-12.4); NEUTROPHILS ABSOLUTE AUTO 5.11 K/mm3 (1.96-9.15); NEUTROPHILS PERCENT AUTO 63 % (41-73); Platelet Count 202 K/mm3 (150-400); RDW Standard Deviation 50.3 fL (35.1-46.3); Red Blood Cell Count 4.44 M/mm3 (3.80-5.20); White Blood Cell Count 8.13 K/mm3 (4.00-11.30)
--- NOTE | 2020-09-02 04:48 | NUR ---
SUMMARY: PT A/OX4 BUT CONT'S TO REPORT L.SIDED WEAKNESS AND SENSATION ABNORMALITIES THOUGH NO DEFICITS HAVE BEEN SEEN BY STAFF. SHE WAS OBSERVED T/O NOCTE USING L.ARM AND HAND FOR REPOSITIONING, PHONE USE, TAKING MEDS AND MANEUVERING IV POLE. SHE WAS ALSO UP TO TOILET TO VOID W/STABLE GAIT OBSERVED AND NO EVIDENCE DIFFICULTY AMBULATING. PT CONT'S TO REPORT 9-10/10 PAIN TO HEAD, JAW AND L.FACE DESPITE RECIEVING Q4H PAIN MEDS AND SHOWING NO S/S DISTRESS. PT ATE MULTIPLE SNACKS AND APPEARED TO TOLERATE THEM WELL. SHE C/O "ANXIETY, HEART RACING AND PALPITATIONS" BUT APPEARED CALM AND LAUGHING ON THE PHONE DURING REQUEST FOR PRN ATIVAN. MED WAS RECIEVED AT HS THEN SHE SLEPT MOST OF NOCTE. IV ABX RECIEVED FOR TOOTH ABSESS THEN SL. PT REPORTS ABX "AREN'T WORKING AND INFECTION ISN'T ANY BETTER". SHE'S REMAINED NSR W/BBB AT 60'S BPM T/O NOCTE ON TELEMETRY. VSS/AFEBRILE AND NO ACUTE CHANGES. PT IS POSSIBLE D/C TO SNF THOUGH SHE REFUSED THIS ON PREVIOUS ADMIT. WCMICHELA AND REPORT TO DAY RN.
[2020-09-02 05:03] LABS: Albumin, Blood 3.2 g/dL (3.4-5.0); Anion Gap 7 mmol/L (6-16); Blood Urea Nitrogen 12 mg/dL (8-24); Bun/Creatinine Ratio 12.3 (12.0-20.0); CO2, Blood 27 mmol/L (21-32); Calcium, Blood 8.5 mg/dL (8.5-10.1); Chloride, Blood 107 mmol/L (98-108); Creatinine, Blood 0.98 mg/dL (0.40-1.00); Glomerular Filtration Rate >60 (60-); Glucose, Blood 86 mg/dL (70-99); Phosphorus, Blood 3.5 mg/dL (2.5-4.9); Potassium, Blood 3.6 mmol/L (3.5-5.5); Sodium, Blood 141 mmol/L (136-145)
--- NOTE | 2020-09-02 09:21 | NUR ---
PER SHIFT REPORT, PT ADMITTED FOR STROKE WITH L SIDED WEAKNESS/DEFICITS. PT OBSERVED USING ALL EXTREMTIES THIS AM. PT USING L ARM TO OPEN WATER BOTTLE AND USE PHONE TO TEXT AND CALL. MOVING LLE IN BED.
[2020-09-02] MEDS ORDERED: [UNRECOGNIZED DRUG - OTHER] IV (11:27)
[2020-09-02] MEDS ORDERED: LACT PO (11:28)
[2020-09-02] MEDS ORDERED: CLON1 PO (11:28)
[2020-09-02] MEDS ORDERED: Catapres0.1 MG PO (11:33)
--- NOTE | 2020-09-02 14:11 | NUR ---
PT AWAKE THIS AM, SITTING UP IN BED. PT TALKING ON PHONE AFTER AMBULATING TO BTHRM. IVF'S INFUSING. PT ABLE TO BE INDEPENDENT IN RM AND TO BTHRM. REPORTED L SIDED WEAKNESS WITH INCONSISTANT USEAGE OF LUE. PT ABLE TO USE L ARM TO TEXT ON PHONE AND OPEN WATER BOTTLE ON BS TABLE. LATER REQUESTED PAIN MEDICATION FOR BACK AND HEAD PAIN. PT LATER REPORTED MID STERNUM BONES STILL HEALING FROM HX OF SX IN 2016. P/T HERE THIS AM TO WORK WITH PT. P/T REPORTED INCONSISTANT USE OF L SIDE EXTREMITIES WELL. DR TAPIA IN TO SEE PT THIS AM. NEW ORDERS PLACED. PT TO D/C TO HOME AND CONTINUE IV ABX IN ER UNTIL ABLE TO GET IN TO SEE DENTIST FOR TOOTH ABSCESS. PT STATED THAT SHE WILL NOT CONTINUE IV ABX AND IS REFUSING TO CONTINUE TO COME FOR TX. PT INSTRUCTED TO CONTINUE PO ABX AND CALL DENTIST TODAY FOR F/U. PT ACKNOWLEDGED INSTRUCTION, BUT SEEMS TO BE NONCOMPLIANT WITH TX. PT ALSO REFUSING TO TAKE ORDERED CLONIDINE. D/C ORDERS PLACED AND INSTRUCTIONS REVIEWED WITH PT. CHRG RN NOTIFIED OF D/C AND PT'S REPORTING THAT SHE NEEDED A RIDE. TRANSPORTATION ARRANGEMENTS MADE AND PT ASSISTED OUT TO ENTRANCE VIA W/C BY TECHNICAL SUPERVISOR. PT ABLE TO TX TO W/C INDEPENDENTLY W/O DIFFICULTY; NO L SIDE DEFICITS NOTED GETTING IN OR OUT OF W/C. PT DRESSED HERSELF AND GATHERED ALL BELONGINGS. DECLINED ASSIST FROM STAFF.
[2020-12-14] MEDS ORDERED: Percocet 5-3251 EACH PO (13:44)
== END 2020-09-02 12:24 | disposition home or self-care (01) | DRG 65 ==
LOC: ER 22:55 → ERHOLD 22:56 → MEDS 22:56 → ENPENDDIS 09-02 10:35 → MEDS 09-02 12:24
PROVIDERS: Emergency Medicine; Internal Medicine; Physician Assistant; ADMIT Internal Medicine
DX: I63.9 Cerebral infarction, unspecified (principal); I50.22 Chronic systolic (congestive) heart failure; I11.0 Hypertensive heart disease with heart failure; I16.0 Hypertensive urgency; E87.6 Hypokalemia; R07.9 Chest pain, unspecified; G89.29 Other chronic pain; I25.10 Atherosclerotic heart disease of native coronary artery without angina pectoris; F17.210 Nicotine dependence, cigarettes, uncomplicated; K04.7 Periapical abscess without sinus; Z95.1 Presence of aortocoronary bypass graft; I25.2 Old myocardial infarction; Z95.5 Presence of coronary angioplasty implant and graft; Z79.82 Long term (current) use of aspirin; Z79.02 Long term (current) use of antithrombotics/antiplatelets
CPT/HCPCS: 36415; 70450; 70496; 70498; 71045; 71046; 80053; 80061; 80069; 81001; 83735; 84484; 85025; 85610; 85730; 87086; 93005; 93010; 96365; 96366; 96375; 96376; 97110; 97116; 97162; 99283-25; 99284-25; A9270; G0378; J1170; J2060; Q9967

== ENCOUNTER 2020-08-31 00:24 | Day surgery (SDC) | payer OTHER ==
[2020-12-14] MEDS ORDERED: Percocet 5-3251 EACH PO (13:44)
== END 2020-08-31 22:45 | disposition home or self-care (01) ==
LOC: ATC 00:24
DX: K04.7 Periapical abscess without sinus (principal); I10 Essential (primary) hypertension; R07.9 Chest pain, unspecified; I50.9 Heart failure, unspecified; Z87.891 Personal history of nicotine dependence; Z79.82 Long term (current) use of aspirin; Z79.891 Long term (current) use of opiate analgesic; Z86.73 Personal history of transient ischemic attack (TIA), and cerebral infarction without residual deficits

== ENCOUNTER 2020-10-05 09:55 | Observation (INO) | payer OTHER ==
[~2020-10-05] VITALS: Ht 167.6 cm; Wt 104.7 kg
[~2020-10-05 09:55] MED LIST changes: +CLON1 PO; +Catapres0.1 MG PO; +LACT PO; +[UNRECOGNIZED DRUG - OTHER] IV
[2020-10-05 10:22] LABS: BASOPHILS ABSOLUTE AUTO 0.05 K/mm3 (0.00-0.23); BASOPHILS PERCENT AUTO 0 % (0-2); EOSINOPHILS ABSOLUTE AUTO 0.09 K/mm3 (0.00-0.68); EOSINOPHILS PERCENT AUTO 1 % (0-6); Hematocrit 47.2 % (33.0-51.0); Hemoglobin 14.4 g/dL (11.5-16.0); IMMATURE GRAN ABSOLUTE AUTO 0.04 K/mm3 (0.00-0.10); IMMATURE GRAN PERCENT AUTO 0 % (0-1); LYMPHOCYTES PERCENT AUTO 7 % (21-46); MONOCYTES ABSOLUTE AUTO 0.57 K/mm3 (0.16-1.47); MONOCYTES PERCENT AUTO 5 % (4-13); Mean Corpuscular HGB 26.9 pg (26.0-34.0); Mean Corpuscular HGB Conc 30.5 g/dL (31.5-36.5); Mean Corpuscular Volume 88 fL (80-100); Mean Platelet Volume 10.4 fL (9.1-12.4); NEUTROPHILS ABSOLUTE AUTO 11.02 K/mm3 (1.96-9.15); NEUTROPHILS PERCENT AUTO 87 % (41-73); Platelet Count 294 K/mm3 (150-400); RDW Coefficient Variation 14.7 % (11.7-14.2); RDW Standard Deviation 47.1 fL (35.1-46.3); Red Blood Cell Count 5.36 M/mm3 (3.80-5.20); White Blood Cell Count 12.67 K/mm3 (4.00-11.30)
[2020-10-05 10:46] LABS: Alanine Aminotransfer (ALT/SGP 25 U/L (12-78); Albumin, Blood 3.7 g/dL (3.4-5.0); Albumin/Globulin Ratio 0.9 (0.8-1.8); Alk Phos 79 U/L (50-136); Anion Gap 9 mmol/L (6-16); Aspartate Aminotrans (AST/SGOT 11 U/L (12-37); Bilirubin, Total 0.6 mg/dL (0.1-1.0); Blood Urea Nitrogen 9 mg/dL (8-24); Bun/Creatinine Ratio 11.3 (12.0-20.0); CO2, Blood 24 mmol/L (21-32); Calcium, Blood 9.3 mg/dL (8.5-10.1); Chloride, Blood 107 mmol/L (98-108); Globulin, Blood 4.2 g/dL (2.2-4.0); Glomerular Filtration Rate >60 (60-); Glucose, Blood 146 mg/dL (70-99); Potassium, Blood 3.6 mmol/L (3.5-5.5); Sodium, Blood 140 mmol/L (136-145); Total Protein, Blood 7.9 g/dL (6.4-8.2); Troponin I <0.015 ng/mL (0.000-0.040)
[2020-10-05] MEDS ORDERED: AMLO5 PO (15:03)
[2020-10-05] MEDS ORDERED: CARV25 PO (15:04)
[2020-10-05] MEDS ORDERED: PLAVIX75 MG PO (15:04)
[2020-10-05] MEDS ORDERED: EZETIMIBE PO (15:05)
[2020-10-05] MEDS ORDERED: FURO40 PO (15:05)
[2020-10-05] MEDS ORDERED: ISOSORBIDE MONO60 MG PO (15:06)
[2020-10-05] MEDS ORDERED: LOSA25 PO (15:07)
[2020-10-05] MEDS ORDERED: LAMICTAL25 M1 PO (15:07)
[2020-10-05] MEDS ORDERED: NARCAN4 M1 (15:08)
[2020-10-05] MEDS ORDERED: NITR.4SL SL (15:09)
[2020-10-05] MEDS ORDERED: OMEP20ER PO (15:09)
[2020-10-05] MEDS ORDERED: ROSUVASTATIN CA40 MG PO (15:10)
[2020-10-05] MEDS ORDERED: OXYCODONE-ACET1 EAC2 PO (15:10)
[2020-10-05] MEDS ORDERED: SPIR50 PO (15:11)
[2020-10-05] MEDS ORDERED: TRANSDERM-SCOP1 EAC4 TOP (15:11)
[2020-10-05] MEDS ORDERED: ST. JOSEPH ASPI81 MG PO (15:12)
[2020-10-05] MEDS ORDERED: Ativan1 MG PO (16:36)
[2020-10-05 19:28] LABS: Troponin I <0.015 ng/mL (0.000-0.040)
[2020-10-06 03:07] LABS: Hematocrit 39.3 % (33.0-51.0); Hemoglobin 12.2 g/dL (11.5-16.0); Mean Corpuscular HGB 26.9 pg (26.0-34.0); Mean Corpuscular Volume 87 fL (80-100); Platelet Count 244 K/mm3 (150-400); RDW Coefficient Variation 14.9 % (11.7-14.2); RDW Standard Deviation 47.8 fL (35.1-46.3); Red Blood Cell Count 4.54 M/mm3 (3.80-5.20)
--- NOTE | 2020-10-06 03:10 | NUR ---
PHYSICIAN CORRESPONDENCE PT CONTINUING TO C/O HEADACHE RATED 10/10; MEDICATED PER EMAR. STATES NOT THERAPUETIC. REQUESTING SOMETHING DIFFERENT OR FOR BREAKTHROUGH. ON-CALL STATES NO NEW ORDERS AT THIS TIME. TO CONSULT ATTENDING IN AM.
[2020-10-06 03:28] LABS: Anion Gap 6 mmol/L (6-16); Blood Urea Nitrogen 14 mg/dL (8-24); Bun/Creatinine Ratio 14.1 (12.0-20.0); CO2, Blood 28 mmol/L (21-32); Chloride, Blood 106 mmol/L (98-108); Creatinine, Blood 0.99 mg/dL (0.40-1.00); Glomerular Filtration Rate >60 (60-); Glucose, Blood 110 mg/dL (70-99); Magnesium, Blood 2.2 mg/dL (1.6-2.4); Potassium, Blood 3.6 mmol/L (3.5-5.5); Sodium, Blood 140 mmol/L (136-145); Troponin I 0.016 ng/mL (0.000-0.040)
--- NOTE | 2020-10-06 05:21 | NUR ---
SHIFT SUMMARY RECIEVED REPORT FROM [facility]STON COLEMAN, ED @ 192. ARRIVED TO [facility] @ 1939 VIA WHEELCHAIR. MINIMAL ASSISTANCE WITH TRANSFER. ORIENTED TO ROOM AND CALL SYSTEM. A/O, ABLE TO MAKE NEEDS KNOWN. COOPERATIVE WITH CARE. CALLS AND ANSWERS QUESTIONS APPROPRIATELY. C/O PAIN/DISCOMFORT TO HEAD RATED 10/10; MEDICATED PER EMAR. SEE PREV RN NOTE REGARDING PAIN MANAGMENT. VSS/AFEBRILE. BLOOD PRESSURE CONTINUES TO STABILIZE. TROPONINS HAVE REMAINED NEGATIVE AT THIS TIME. NO C/O PAIN/DISCOMFORT TO CHEST. AWAITING MRI AND ECHO THIS DAY. APPEARED TO REST OFF AND ON. NO ACUTE CHANGES NOTED. TELE RUNNING SR IN 70s. HAS REQUESTED MULTIPLE SNACKS/DRINKS FROM STAFF OVERNIGHT. BED REMAINS IN LOWEST POSITION. CALL LIGHT AND BELONGINGS WITHIN REACH. CONTINUE WITH CURRENT PLAN OF CARE. REPORT TO MARIELA COLEMAN.
--- NOTE | 2020-10-06 14:16 | NUR ---
echocardiogram complete
--- NOTE | 2020-10-06 16:49 | NUR ---
SHIFT SUMMARY PT AWAKE AT START OF SHIFT, SITTING UP IN BED WATCHING TV AND LOOKING AT HER PHONE. PT LATER REQUESTED PAIN MEDICATION FOR C/O BROOKS AND CHRONIC PAIN ISSUES. MEDICATED PER EMAR. PT USING LUE AT START OF SHIFT TO REACH FOR BLANKETS AND ABLE TO MOVE LLE IN BED. PT UP TO BTHRM INDEPENDENTLY WHEN STAFF NOT IN RM, BUT LATER STATED THAT SHE NEEDED TO USE THE RESTRM. PT ATTEMPTING TO KEEP LUE CLOSE TO HER SIDE AND ASSISTED DRAGGING LLE WITH OCCASSIONAL SM STEPS TO GET INTO BTHRM AND BACK TO BED. P/T IN TO SEE PT AND WORK WITH HER. DR SNEED LATER IN TO SEE PT AND TALK TO P/T REGARDING PLAN OF CARE. PT HAD C/O BROOKS TO DR SNEED; TYLENOL ORDERED. PT REFUSED TYLENOL FOR A WHILE, BUT LATER AGREED TO TAKE IT. PT WAS TO HAVE HAD MRA OF HEAD, BUT UNABLE TO PROVIDE INFO REGARDING CARDIAC STENTS. PT ALSO STATING THAT SHE WANTED TO BE COMPLETELY SEDATED FOR CT. DR SNEED NOTIFIED AGAIN; NO NEW ORDERS. TESTING COMPLETED TO PRESENT HAS BEEN NEG FOR STROKE. DR SNEED TO WAIT FOR P/T EVAL AND PLAN TO D/C IN AM. BP MEDS HELD AT START OF SHIFT, FOR PERMISSIVE HTN ORDER. DR SNEED LATER ORDERED BP MEDS TO BE GIVEN NOW ORDERED. PT OBSERVED USING BOTH EXTREMITIES BY OTHER STAFF, WELL NOT APPEARING TO HAVE ANY DIFFICULTY SEEING OR USING CELL PHONE OR CALL LT SYSTEM. PT CALLS FOR CHRONIC PAIN MEDICATION PER EMAR. WILL CONTINUE TO MONITOR. CALL LT IN REACH.
--- NOTE | 2020-10-06 17:54 | NUR ---
PT OBSEVERED SITTING UP TO EOB, USING BOTH HANDS TO OPEN SALAD CONTAINER AND PUT SALAD DRESSING ON SALAD W/O DIFFICULTY.
--- NOTE | 2020-10-07 02:00 | NUR ---
PHYSICIAN CORRESPONDENCE STATES "FEELS LIKE IM COMING OUT OF MY SKIN". STATES LIKELY DUE TO INABILITY TO SLEEP WHILE IN HOSPITAL. OT TIME ORDER PER ON-CALL PHYSICIAN FOR ATIVAN 1 MG PO.
--- NOTE | 2020-10-07 04:08 | NUR ---
SHIFT SUMMARY A/O, ABLE TO MAKE NEEDS KNOWN. COOPERATIVE WITH CARE. CALLS AND ANSWERS QUESTIONS APPROPRIATELY. CONTINUES TO C/O PAIN/DISCOMFORT TO HEAD RATED 10/10; MEDICATED PER EMAR. C/O ANXIETY POTENTIALLY R/T LACK OF SLEEP; SEE PREV TIANNA NOTE. DID NOT APPEAR TO REST MUCH OVERNIGHT. REMAINS HYPERTENSIVE, BUT APPEARS ON TREND WITH PREVIOUS PRESSURES. ALL OTHER VS WNL. NPO p 0000 FOR STRESS TEST THIS DAY. TELE RUNNING SR IN 70s; NO NOTED EVENTS. DID REQUEST MULTIPLE SNACKS/DRINKS FROM STAFF PRIOR TO 0000. BED REMAINS IN LOWEST POSITION. CALL LIGHT AND BELONGINGS WITHIN REACH. CONTINUE WITH CURRENT PLAN OF CARE. REPORT TO ONCOMING RN.
[2020-10-07 08:34] LABS: BASOPHILS ABSOLUTE AUTO 0.04 K/mm3 (0.00-0.23); BASOPHILS PERCENT AUTO 0 % (0-2); EOSINOPHILS ABSOLUTE AUTO 0.19 K/mm3 (0.00-0.68); EOSINOPHILS PERCENT AUTO 2 % (0-6); Hematocrit 39.4 % (33.0-51.0); Hemoglobin 12.1 g/dL (11.5-16.0); IMMATURE GRAN ABSOLUTE AUTO 0.02 K/mm3 (0.00-0.10); IMMATURE GRAN PERCENT AUTO 0 % (0-1); LYMPHOCYTES ABSOLUTE AUTO 1.64 K/mm3 (0.84-5.20); LYMPHOCYTES PERCENT AUTO 16 % (21-46); MONOCYTES ABSOLUTE AUTO 0.79 K/mm3 (0.16-1.47); MONOCYTES PERCENT AUTO 8 % (4-13); Mean Corpuscular HGB 26.8 pg (26.0-34.0); Mean Corpuscular HGB Conc 30.7 g/dL (31.5-36.5); Mean Corpuscular Volume 87 fL (80-100); Mean Platelet Volume 10.5 fL (9.1-12.4); NEUTROPHILS ABSOLUTE AUTO 7.32 K/mm3 (1.96-9.15); NEUTROPHILS PERCENT AUTO 73 % (41-73); Platelet Count 233 K/mm3 (150-400); RDW Coefficient Variation 14.6 % (11.7-14.2); RDW Standard Deviation 46.9 fL (35.1-46.3); Red Blood Cell Count 4.52 M/mm3 (3.80-5.20)
[2020-10-07 08:49] LABS: Anion Gap 4 mmol/L (6-16); Blood Urea Nitrogen 14 mg/dL (8-24); Bun/Creatinine Ratio 15.7 (12.0-20.0); CO2, Blood 28 mmol/L (21-32); Calcium, Blood 8.8 mg/dL (8.5-10.1); Chloride, Blood 106 mmol/L (98-108); Creatinine, Blood 0.89 mg/dL (0.40-1.00); Glomerular Filtration Rate >60 (60-); Glucose, Blood 109 mg/dL (70-99); Magnesium, Blood 2.2 mg/dL (1.6-2.4); Potassium, Blood 3.6 mmol/L (3.5-5.5); Sodium, Blood 138 mmol/L (136-145)
--- NOTE | 2020-10-07 16:54 | NUR ---
SHIFT SUMMARY- PT A/OX4. PT CONTINUOUSLY REPORTS HEADACHE AND PAIN ACROSSED CHEST. LS CLEAR, ON RA. TELE SR AT 68. FIRST PORTION OF STRESS TEST COMPLETED TODAY. PT REPORTS NAUSEA BUT STATES SHE CANNOT TAKE ANTIEMETICS. PT TOLERATING PO INTAKE. UPON MY ASSESSMENT THIS AM PT WOULD NOT MOVE LEFT ARM OR LEG, PT WOULD ONLY WIGGLE FINGERS SLIGHTLY. PT REPORTS BLURRED VISION OUT OF RIGHT EYE, PUPILS TAYO. HOWEVER PT ABLE TO AMBULATE TO BATHROOM INDEP AND SIT AT EDGE OF BED WITHOUT DRIFING TO THE SIDE. CT HEAD AND MRI HEAD COMPLETED TODAY. PT ANXIOUS AT TIMES, PRN ATIVAN GIVEN. NO OTHER ACUTE CHANGES THIS SHIFT.
--- NOTE | 2020-10-08 04:57 | NUR ---
SHIFT SUMMARY- PT. A&O, WITH LT SIDED WEAKNESS. HAS BEEN ABLE TO INDEPENDENTLY AMBULATE TO THE BATHROOM. C/O PERSISTENT HEADACHE 05/25 LAST NIGHT. MEDICATED PER EMAR WITH MINIMAL EFFECT. PER TELE HAD 6 BEAT RUN OF VTACH AT THE START OF THE SHIFT, PT. HAD NO COMPLAINTS OF CP, ASYMPTOMATIC. HOSPITALIST DR. WELLS MADE AWARE, NO NEW ORDERS. SNACKS GIVEN LAST NIGHT PER PT. REQUEST, TOLERATING PO INTAKE WELL. SCHEDULED FOR 2ND PART OF STRESS TEST TODAY, HAS BEEN NPO SINCE AND NO CAFFEINE WAS GIVEN AFTER 1999. PT. APPEARED TO HAVE RESTED COMFORTABLY IN BED DURING THE NIGHT, NO APPARENT DISTRESS NOTED. VSS. CALL LIGHT WITHIN REACH AND SIDE RAILS UPX2. WILL CONT TO MONITOR.
[2020-10-08 04:58] LABS: Hematocrit 43.9 % (33.0-51.0); Hemoglobin 13.3 g/dL (11.5-16.0); Mean Corpuscular HGB 26.7 pg (26.0-34.0); Mean Corpuscular HGB Conc 30.3 g/dL (31.5-36.5); Mean Corpuscular Volume 88 fL (80-100); Mean Platelet Volume 10.6 fL (9.1-12.4); Platelet Count 243 K/mm3 (150-400); RDW Coefficient Variation 14.6 % (11.7-14.2); RDW Standard Deviation 47.3 fL (35.1-46.3); Red Blood Cell Count 4.99 M/mm3 (3.80-5.20); White Blood Cell Count 10.69 K/mm3 (4.00-11.30)
[2020-10-08 05:22] LABS: Anion Gap 5 mmol/L (6-16); Blood Urea Nitrogen 16 mg/dL (8-24); CO2, Blood 29 mmol/L (21-32); Calcium, Blood 8.8 mg/dL (8.5-10.1); Chloride, Blood 104 mmol/L (98-108); Glomerular Filtration Rate >60 (60-); Glucose, Blood 102 mg/dL (70-99); Magnesium, Blood 2.4 mg/dL (1.6-2.4); Phosphorus, Blood 3.5 mg/dL (2.5-4.9); Potassium, Blood 3.6 mmol/L (3.5-5.5); Sodium, Blood 138 mmol/L (136-145)
--- NOTE | 2020-10-08 17:22 | NUR ---
HER STRESS TEST WAS COMPLETED TODAY. SHE SAYS HER PAIN IS ALWAYS A 10 INSPITE OF TAKING OXYCODONE 10 EVERY 4 HRS. SHE SAYS IT DOESN'T HELP BUT SHE HAS TAKEN IT FOR 5 YRS. A PSYCH CONSULT WAS ORDERED TODAY. IT HAS NOT HAPPENED YET. AND THE PHARMACOGNOSY TEACHER ROUNDED ON HER TODAY. THE DOOR IS OPEN TO THE ROOM AND BED ALARM ON NOW BECAUSE THERE HAVE BEEN CONFLICTING INFORMATION ON HER MOBILITY ABILITIES. SHE TOLD ME AT 1245 WHEN I WENT IN TO ASSESS HER THAT SHE HADN'T VOIDED THIS MORNING OR LAST NIGHT. THEN WHEN I QUESTIONED, SHE SAID SHE WENT ONCE WITH THE NIGHT NURSE BUT NOT IN THE BATHROOM. THE NIGHT NURSE SAID SHE WAS UP INDEPENDENTLY IN THE BATHROOM LAST NIGHT. MY TOOL RENTAL TECHNICIAN SAW HER IN THE BATHROOM THIS MORNING. THERE WERE ALSO LONG BLACK HAIRS ON THE TOILET SEAT AND URINE IN THE TOILET WATER. THE HAT WAS EMPTY. I BLADDER SCANNED HER. ZERO IN THE BLADDER. I HAVE TRANSFERRED HER TO AND FROM THE [facility] X2 THIS AFTERNOON. SHE WAS INCONSISTENT IN HER L ARM AND BUMBOATER ABILITIES ON THE WALKER. SHE APPEARS WEAK IN HER L EXTREMITIES. AND ON NEURO ASSESSMENT HAD VERY LITTLE L BUMBOATER. SHE HAD MORE L BUMBOATER ON THE WALKER THOUGH. TELE NSR 60'S. HAS HAD A H/A ALL DAY. HAS HAD CP SINCE BEFORE THE STRESS TEST BUT MORE AFTERWARD AND BILATERAL JAW PAIN. SHE HASN'T EATEN YET TODAY BUT DRINKS WATER AND PEPSI WELL.
[2020-10-09 05:16] LABS: Hematocrit 40.4 % (33.0-51.0); Hemoglobin 12.3 g/dL (11.5-16.0); Mean Corpuscular HGB 26.5 pg (26.0-34.0); Mean Corpuscular HGB Conc 30.4 g/dL (31.5-36.5); Mean Corpuscular Volume 87 fL (80-100); Mean Platelet Volume 10.6 fL (9.1-12.4); Platelet Count 247 K/mm3 (150-400); RDW Coefficient Variation 14.6 % (11.7-14.2); RDW Standard Deviation 46.6 fL (35.1-46.3); Red Blood Cell Count 4.65 M/mm3 (3.80-5.20); White Blood Cell Count 10.68 K/mm3 (4.00-11.30)
[2020-10-09 05:39] LABS: Bun/Creatinine Ratio 16.5 (12.0-20.0); Calcium, Blood 8.6 mg/dL (8.5-10.1); Creatinine, Blood 1.09 mg/dL (0.40-1.00); Magnesium, Blood 2.3 mg/dL (1.6-2.4); Phosphorus, Blood 3.9 mg/dL (2.5-4.9); Potassium, Blood 3.8 mmol/L (3.5-5.5)
--- NOTE | 2020-10-09 08:04 | NUR ---
Patient continues to complain of 10/10 posterior headache with NO relief from the oxycodone at all. Still states she is unable to walk, but moves about the bed, sits on the side, and gets up to use the bedside commode leading with her left foot sliding towards where she wants to go. When this RN confronted her and made a positive comment about her getting her strength back, she said "yea, but i cannot lift it". mild complaints of diffuse chest pain, neck pain or jaw pain would each accompany her 10/10 headache at different times.
[2020-10-09] MEDS ORDERED: Acetaminophen325 M1 PO (11:51)
[2020-10-09] MEDS ORDERED: BISA10S PR (11:51)
--- NOTE | 2020-10-09 12:37 | NUR ---
DISCHARGE INSTRUCTIONS AND EDUCATIONAL MATERIAL REVIEWED WITH PATIENT. ALL QUESTIONS ANSWERED. TELE BOX REMOVED AND RETURNED TO PCU AND IV DISCONTINUED. PATIENT DISCHARGED HOME AT 1230. ARCHITECTURAL REPRESENTATIVE ESCORTED PATIENT OUT IN WHEEL CHAIR.
[2020-12-14] MEDS ORDERED: Percocet 5-3251 EACH PO (13:44)
== END 2020-10-09 12:30 | disposition home health service (06) ==
LOC: ER 09:55 → MEDS 09:56 → ERHOLD 09:56 → MEDS 19:39
PROVIDERS: Emergency Medicine; ADMIT Family Medicine
DX: I25.10 Atherosclerotic heart disease of native coronary artery without angina pectoris (principal); R07.9 Chest pain, unspecified; I16.0 Hypertensive urgency; I11.0 Hypertensive heart disease with heart failure; I50.22 Chronic systolic (congestive) heart failure; I25.2 Old myocardial infarction; I69.354 Hemiplegia and hemiparesis following cerebral infarction affecting left non-dominant side; D72.829 Elevated white blood cell count, unspecified; R51.9 Headache, unspecified; K04.7 Periapical abscess without sinus; E66.9 Obesity, unspecified; Z68.37 Body mass index [BMI] 37.0-37.9, adult; Z95.1 Presence of aortocoronary bypass graft; Z95.5 Presence of coronary angioplasty implant and graft; Z87.891 Personal history of nicotine dependence; Z88.6 Allergy status to analgesic agent; Z88.5 Allergy status to narcotic agent; Z91.018 Allergy to other foods; Z88.0 Allergy status to penicillin; Z88.8 Allergy status to other drugs, medicaments and biological substances; Z79.02 Long term (current) use of antithrombotics/antiplatelets; Z79.82 Long term (current) use of aspirin
CPT/HCPCS: 36415; 70450; 70551; 71046; 71260; 78452; 80048; 80053; 83690; 83735; 83880; 84100; 84443; 84484; 85025; 85027; 86141; 93005; 93010; 93017; 93306; 96365; 96366; 96375; 96376; 97110; 97112; 97116; 97162; 97166; 97530; 99285-25; A9270; A9500; G0378; J0280; J1170; J1650; J1940; J2060; J2270; J2785; Q9967

== ENCOUNTER 2020-10-13 06:13 | Emergency (ER) | payer OTHER ==
[~2020-10-13] VITALS: Ht 167.6 cm; Wt 102.1 kg
[~2020-10-13 06:13] MED LIST changes: +BISA10S PR; +CARV25 PO; +EZETIMIBE PO; +FURO40 PO; +LAMICTAL25 M1 PO; +LOSA25 PO; +NARCAN4 M1; +OMEP20ER PO; +OXYCODONE-ACET1 EAC2 PO; +PLAVIX75 MG PO; +ROSUVASTATIN CA40 MG PO; +SPIR50 PO; +ST. JOSEPH ASPI81 MG PO; +TRANSDERM-SCOP1 EAC4 TOP
[2020-10-13 06:49] LABS: BASOPHILS ABSOLUTE AUTO 0.06 K/mm3 (0.00-0.23); BASOPHILS PERCENT AUTO 1 % (0-2); EOSINOPHILS PERCENT AUTO 2 % (0-6); Hematocrit 44.5 % (33.0-51.0); Hemoglobin 13.8 g/dL (11.5-16.0); IMMATURE GRAN ABSOLUTE AUTO 0.05 K/mm3 (0.00-0.10); IMMATURE GRAN PERCENT AUTO 0 % (0-1); LYMPHOCYTES ABSOLUTE AUTO 1.48 K/mm3 (0.84-5.20); LYMPHOCYTES PERCENT AUTO 11 % (21-46); MONOCYTES ABSOLUTE AUTO 0.99 K/mm3 (0.16-1.47); MONOCYTES PERCENT AUTO 8 % (4-13); Mean Corpuscular HGB 26.5 pg (26.0-34.0); Mean Corpuscular Volume 86 fL (80-100); Mean Platelet Volume 10.4 fL (9.1-12.4); NEUTROPHILS ABSOLUTE AUTO 10.24 K/mm3 (1.96-9.15); NEUTROPHILS PERCENT AUTO 79 % (41-73); Platelet Count 271 K/mm3 (150-400); RDW Coefficient Variation 14.4 % (11.7-14.2); RDW Standard Deviation 45.1 fL (35.1-46.3); White Blood Cell Count 13.02 K/mm3 (4.00-11.30)
[2020-10-13 07:08] LABS: Troponin I <0.015 ng/mL (0.000-0.040)
[2020-10-13 07:09] LABS: Alanine Aminotransfer (ALT/SGP 25 U/L (12-78); Albumin, Blood 3.8 g/dL (3.4-5.0); Albumin/Globulin Ratio 0.9 (0.8-1.8); Alk Phos 90 U/L (50-136); Anion Gap 6 mmol/L (6-16); Aspartate Aminotrans (AST/SGOT 12 U/L (12-37); Bilirubin, Total 0.4 mg/dL (0.1-1.0); Blood Urea Nitrogen 16 mg/dL (8-24); Bun/Creatinine Ratio 18.5 (12.0-20.0); CO2, Blood 24 mmol/L (21-32); Chloride, Blood 109 mmol/L (98-108); Creatinine, Blood 0.86 mg/dL (0.40-1.00); Globulin, Blood 4.1 g/dL (2.2-4.0); Glomerular Filtration Rate >60 (60-); Glucose, Blood 123 mg/dL (70-99); Potassium, Blood 4.1 mmol/L (3.5-5.5); Sodium, Blood 139 mmol/L (136-145); Total Protein, Blood 7.9 g/dL (6.4-8.2)
[2020-10-13] MEDS ORDERED: ZALE10 PO (20:27)
[2020-12-14] MEDS ORDERED: Percocet 5-3251 EACH PO (13:44)
== END 2020-10-13 08:26 | disposition home or self-care (01) ==
LOC: ER 06:13
PROVIDERS: Emergency Medicine
DX: R07.89 Other chest pain (principal); I11.0 Hypertensive heart disease with heart failure; I50.9 Heart failure, unspecified; I25.2 Old myocardial infarction; E87.6 Hypokalemia; I25.810 Atherosclerosis of coronary artery bypass graft(s) without angina pectoris; Z79.899 Other long term (current) drug therapy; Z79.82 Long term (current) use of aspirin; Z88.5 Allergy status to narcotic agent; Z88.8 Allergy status to other drugs, medicaments and biological substances; Z88.4 Allergy status to anesthetic agent; Z88.0 Allergy status to penicillin; Z91.018 Allergy to other foods; Z95.5 Presence of coronary angioplasty implant and graft
CPT/HCPCS: 36415; 71046; 80053; 83880; 84484; 85025; 93005; 93010; 99285-25; A9270

== ENCOUNTER 2020-10-13 18:13 | Emergency (ER) | payer OTHER ==
[~2020-10-13] VITALS: Ht 167.6 cm; Wt 90.7 kg
[2020-10-13] MEDS ORDERED: ZALE10 PO (20:27)
[2020-12-14] MEDS ORDERED: Percocet 5-3251 EACH PO (13:44)
== END 2020-10-13 20:55 | disposition home or self-care (01) ==
LOC: ER 18:13
DX: G47.00 Insomnia, unspecified (principal); I11.0 Hypertensive heart disease with heart failure; I50.9 Heart failure, unspecified; I25.810 Atherosclerosis of coronary artery bypass graft(s) without angina pectoris; Z88.8 Allergy status to other drugs, medicaments and biological substances; Z88.0 Allergy status to penicillin; Z88.5 Allergy status to narcotic agent; Z91.018 Allergy to other foods; Z79.899 Other long term (current) drug therapy; Z79.82 Long term (current) use of aspirin; Z95.1 Presence of aortocoronary bypass graft; Z87.891 Personal history of nicotine dependence
CPT/HCPCS: 99282; A9270

== ENCOUNTER 2020-10-13 23:37 | Emergency (ER) | payer OTHER ==
[~2020-10-13] VITALS: Ht 167.6 cm; Wt 90.7 kg
[~2020-10-13 23:37] MED LIST changes: +ZALE10 PO
[2020-10-15] MEDS ORDERED: Keflex500 MG PO (02:49)
[2020-10-15] MEDS ORDERED: Pyridium100 MG PO (02:49)
[2020-12-14] MEDS ORDERED: Percocet 5-3251 EACH PO (13:44)
== END 2020-10-14 00:20 | disposition home or self-care (01) ==
LOC: ER 23:37
DX: G47.00 Insomnia, unspecified (principal); R07.89 Other chest pain; I11.0 Hypertensive heart disease with heart failure; I50.9 Heart failure, unspecified; I25.810 Atherosclerosis of coronary artery bypass graft(s) without angina pectoris; Z88.8 Allergy status to other drugs, medicaments and biological substances; Z88.0 Allergy status to penicillin; Z88.5 Allergy status to narcotic agent; Z91.018 Allergy to other foods; Z79.899 Other long term (current) drug therapy
CPT/HCPCS: 36415; 71046; 80053; 83880; 84484; 85025; 93005; 93010; 99282; 99285-25; A9270

== ENCOUNTER 2020-10-14 03:06 | Emergency (ER) | payer OTHER ==
[2020-10-15] MEDS ORDERED: Pyridium100 MG PO (02:49)
[2020-10-15] MEDS ORDERED: Keflex500 MG PO (02:49)
[2020-12-14] MEDS ORDERED: Percocet 5-3251 EACH PO (13:44)
== END 2020-10-14 04:57 | disposition left against medical advice (07) ==
LOC: ER 03:06
DX: Z53.21 Procedure and treatment not carried out due to patient leaving prior to being seen by health care provider (principal)
CPT/HCPCS: J2060

== ENCOUNTER 2020-10-14 05:29 | Emergency (ER) | payer OTHER ==
[~2020-10-14] VITALS: Ht 167.6 cm; Wt 124.7 kg
[2020-10-14 06:26] LABS: BASOPHILS ABSOLUTE AUTO 0.09 K/mm3 (0.00-0.23); BASOPHILS PERCENT AUTO 0 % (0-2); EOSINOPHILS ABSOLUTE AUTO 0.23 K/mm3 (0.00-0.68); EOSINOPHILS PERCENT AUTO 1 % (0-6); Hematocrit 49.8 % (33.0-51.0); Hemoglobin 15.9 g/dL (11.5-16.0); IMMATURE GRAN ABSOLUTE AUTO 0.12 K/mm3 (0.00-0.10); IMMATURE GRAN PERCENT AUTO 1 % (0-1); LYMPHOCYTES ABSOLUTE AUTO 2.18 K/mm3 (0.84-5.20); LYMPHOCYTES PERCENT AUTO 10 % (21-46); MONOCYTES ABSOLUTE AUTO 1.74 K/mm3 (0.16-1.47); MONOCYTES PERCENT AUTO 8 % (4-13); Mean Corpuscular HGB 26.5 pg (26.0-34.0); Mean Corpuscular HGB Conc 31.9 g/dL (31.5-36.5); Mean Corpuscular Volume 83 fL (80-100); NEUTROPHILS ABSOLUTE AUTO 17.29 K/mm3 (1.96-9.15); NEUTROPHILS PERCENT AUTO 80 % (41-73); RDW Coefficient Variation 14.5 % (11.7-14.2); RDW Standard Deviation 43.6 fL (35.1-46.3); White Blood Cell Count 21.65 K/mm3 (4.00-11.30)
[2020-10-14 06:31] LABS: Mean Platelet Volume 10.6 fL (9.1-12.4); Platelet Count 323 K/mm3 (150-400)
[2020-10-14 06:48] LABS: Alanine Aminotransfer (ALT/SGP 27 U/L (12-78); Albumin, Blood 4.6 g/dL (3.4-5.0); Alk Phos 97 U/L (50-136); Anion Gap 7 mmol/L (6-16); Aspartate Aminotrans (AST/SGOT 14 U/L (12-37); Bilirubin, Total 0.5 mg/dL (0.1-1.0); Blood Urea Nitrogen 12 mg/dL (8-24); CO2, Blood 24 mmol/L (21-32); Calcium, Blood 9.9 mg/dL (8.5-10.1); Chloride, Blood 107 mmol/L (98-108); Creatinine, Blood 0.93 mg/dL (0.40-1.00); Globulin, Blood 4.7 g/dL (2.2-4.0); Glomerular Filtration Rate >60 (60-); Glucose, Blood 141 mg/dL (70-99); Potassium, Blood 3.7 mmol/L (3.5-5.5); Sodium, Blood 138 mmol/L (136-145); Total Protein, Blood 9.3 g/dL (6.4-8.2); Troponin I 0.018 ng/mL (0.000-0.040)
[2020-10-15] MEDS ORDERED: Pyridium100 MG PO (02:49)
[2020-10-15] MEDS ORDERED: Keflex500 MG PO (02:49)
[2020-12-14] MEDS ORDERED: Percocet 5-3251 EACH PO (13:44)
== END 2020-10-14 08:10 | disposition home or self-care (01) ==
LOC: ER 05:29
PROVIDERS: Emergency Medicine
DX: R07.89 Other chest pain (principal); G47.00 Insomnia, unspecified; I11.0 Hypertensive heart disease with heart failure; I50.9 Heart failure, unspecified; I25.2 Old myocardial infarction; I25.810 Atherosclerosis of coronary artery bypass graft(s) without angina pectoris; Z88.0 Allergy status to penicillin; Z88.6 Allergy status to analgesic agent; Z88.8 Allergy status to other drugs, medicaments and biological substances; Z88.4 Allergy status to anesthetic agent; Z79.02 Long term (current) use of antithrombotics/antiplatelets; Z79.82 Long term (current) use of aspirin; Z95.1 Presence of aortocoronary bypass graft; Z95.5 Presence of coronary angioplasty implant and graft; Z79.899 Other long term (current) drug therapy; Z87.891 Personal history of nicotine dependence
CPT/HCPCS: 36415; 71045; 80053; 83880; 84484; 85025; 93005; 93010; 96374; 99285-25; A9270; J2060

== ENCOUNTER 2020-10-14 22:45 | Emergency (ER) | payer OTHER ==
[~2020-10-14] VITALS: Ht 167.6 cm; Wt 90.7 kg
[2020-10-15 01:46] LABS: BASOPHILS ABSOLUTE AUTO 0.04 K/mm3 (0.00-0.23); BASOPHILS PERCENT AUTO 0 % (0-2); EOSINOPHILS ABSOLUTE AUTO 0.26 K/mm3 (0.00-0.68); EOSINOPHILS PERCENT AUTO 2 % (0-6); Hematocrit 43.7 % (33.0-51.0); Hemoglobin 13.6 g/dL (11.5-16.0); IMMATURE GRAN ABSOLUTE AUTO 0.04 K/mm3 (0.00-0.10); IMMATURE GRAN PERCENT AUTO 0 % (0-1); LYMPHOCYTES ABSOLUTE AUTO 2.24 K/mm3 (0.84-5.20); LYMPHOCYTES PERCENT AUTO 16 % (21-46); MONOCYTES ABSOLUTE AUTO 1.27 K/mm3 (0.16-1.47); MONOCYTES PERCENT AUTO 9 % (4-13); Mean Corpuscular HGB 26.8 pg (26.0-34.0); Mean Corpuscular HGB Conc 31.1 g/dL (31.5-36.5); Mean Corpuscular Volume 86 fL (80-100); Mean Platelet Volume 10.5 fL (9.1-12.4); NEUTROPHILS ABSOLUTE AUTO 9.91 K/mm3 (1.96-9.15); NEUTROPHILS PERCENT AUTO 72 % (41-73); Platelet Count 294 K/mm3 (150-400); RDW Coefficient Variation 14.7 % (11.7-14.2); RDW Standard Deviation 46.6 fL (35.1-46.3); Red Blood Cell Count 5.08 M/mm3 (3.80-5.20); White Blood Cell Count 13.76 K/mm3 (4.00-11.30)
[2020-10-15 02:00] LABS: Source, Urine Clean Catch
[2020-10-15 02:02] LABS: Bilirubin, Urine Neg (Neg); Blood, Urine 4+ (Neg); Glucose Qualitative, Urine Neg (Neg); Ketones, Urine Neg (Neg); Leukocyte Esterase, Urine 2+ (Neg); Nitrite, Urine Neg (Neg); Protein, Urine 1+ (Neg); Specific Gravity, Urine 1.025 (1.003-1.022); Urobilinogen, Urine NORM (Normal)
[2020-10-15 02:04] LABS: Appearance, Urine Clear (Clear); Color, Urine Yellow (P-Yellow)
[2020-10-15 02:04] LABS: Albumin, Blood 3.6 g/dL (3.4-5.0); Albumin/Globulin Ratio 0.9 (0.8-1.8); Bilirubin, Total 0.3 mg/dL (0.1-1.0); Calcium, Blood 8.5 mg/dL (8.5-10.1); Creatinine, Blood 1.17 mg/dL (0.40-1.00); Globulin, Blood 3.8 g/dL (2.2-4.0); Total Protein, Blood 7.4 g/dL (6.4-8.2)
[2020-10-15 02:11] LABS: Bacteria Many /hpf; Red Blood Cells, Urine 0-2 /hpf (0-2); Squamous Epithelial Cells Mod /hpf (Few)
[2020-10-15] MEDS ORDERED: Keflex500 MG PO (02:49)
[2020-10-15] MEDS ORDERED: Pyridium100 MG PO (02:49)
[2020-12-14] MEDS ORDERED: Percocet 5-3251 EACH PO (13:44)
== END 2020-10-15 03:15 | disposition home or self-care (01) ==
LOC: ER 22:45
PROVIDERS: Emergency Medicine
DX: N39.0 Urinary tract infection, site not specified (principal)
CPT/HCPCS: 36415; 74177; 80053; 81001; 83690; 85025; 87086; 99284-25; A9270; Q9967

== ENCOUNTER 2020-11-30 07:12 | Observation (INO) | payer OTHER ==
[~2020-11-30] VITALS: Ht 167.6 cm; Wt 106.6 kg
[~2020-11-30 07:12] MED LIST changes: +Keflex500 MG PO; +Pyridium100 MG PO
[2020-11-30 08:01] LABS: BASOPHILS ABSOLUTE AUTO 0.05 K/mm3 (0.00-0.23); BASOPHILS PERCENT AUTO 0 % (0-2); EOSINOPHILS ABSOLUTE AUTO 0.17 K/mm3 (0.00-0.68); EOSINOPHILS PERCENT AUTO 2 % (0-6); Hematocrit 44.5 % (33.0-51.0); Hemoglobin 13.7 g/dL (11.5-16.0); IMMATURE GRAN ABSOLUTE AUTO 0.03 K/mm3 (0.00-0.10); IMMATURE GRAN PERCENT AUTO 0 % (0-1); LYMPHOCYTES ABSOLUTE AUTO 1.55 K/mm3 (0.84-5.20); LYMPHOCYTES PERCENT AUTO 14 % (21-46); MONOCYTES ABSOLUTE AUTO 0.96 K/mm3 (0.16-1.47); MONOCYTES PERCENT AUTO 9 % (4-13); Mean Corpuscular HGB 25.7 pg (26.0-34.0); Mean Corpuscular HGB Conc 30.8 g/dL (31.5-36.5); Mean Corpuscular Volume 84 fL (80-100); Mean Platelet Volume 10.6 fL (9.1-12.4); NEUTROPHILS ABSOLUTE AUTO 8.36 K/mm3 (1.96-9.15); NEUTROPHILS PERCENT AUTO 75 % (41-73); Platelet Count 226 K/mm3 (150-400); RDW Coefficient Variation 15.1 % (11.7-14.2); RDW Standard Deviation 45.8 fL (35.1-46.3); Red Blood Cell Count 5.33 M/mm3 (3.80-5.20); White Blood Cell Count 11.12 K/mm3 (4.00-11.30)
[2020-11-30 08:13] LABS: Source, Urine Clean Catch
[2020-11-30 08:20] LABS: Bilirubin, Urine Neg (Neg); Blood, Urine Neg (Neg); Glucose Qualitative, Urine Neg (Neg); Ketones, Urine Neg (Neg); Leukocyte Esterase, Urine 1+ (Neg); Nitrite, Urine Neg (Neg); Protein, Urine Neg (Neg); Urobilinogen, Urine NORM (Normal)
[2020-11-30 08:26] LABS: Alanine Aminotransfer (ALT/SGP 19 U/L (12-78); Albumin, Blood 3.5 g/dL (3.4-5.0); Albumin/Globulin Ratio 0.9 (0.8-1.8); Alk Phos 76 U/L (50-136); Anion Gap 9 mmol/L (6-16); Aspartate Aminotrans (AST/SGOT 13 U/L (12-37); Bilirubin, Total 0.2 mg/dL (0.1-1.0); Blood Urea Nitrogen 9 mg/dL (8-24); Bun/Creatinine Ratio 8.7 (12.0-20.0); CO2, Blood 23 mmol/L (21-32); Calcium, Blood 8.7 mg/dL (8.5-10.1); Chloride, Blood 108 mmol/L (98-108); Creatinine, Blood 1.04 mg/dL (0.40-1.00); Globulin, Blood 3.9 g/dL (2.2-4.0); Glomerular Filtration Rate >60 (60-); Glucose, Blood 147 mg/dL (70-99); Potassium, Blood 3.6 mmol/L (3.5-5.5); Sodium, Blood 140 mmol/L (136-145); Total Protein, Blood 7.4 g/dL (6.4-8.2); Troponin I <0.015 ng/mL (0.000-0.040)
[2020-11-30 09:05] LABS: Appearance, Urine Clear (Clear); Color, Urine Yellow (P-Yellow)
[2020-11-30 09:06] LABS: Bacteria Few /hpf; Red Blood Cells, Urine 0-2 /hpf (0-2); Squamous Epithelial Cells Few /hpf (Few)
--- NOTE | 2020-11-30 19:09 | NUR ---
RECEIVED PT TO RM 310. REFRIGERATION MANAGER, MADDIE ASSISTED WITH ADMISSION, INDIVIDUAL PENSION CONSULTANT, AND ASSISTING PT TO [facility]. PT COULD BE INDEPENDENT IN , BUT SBA WAS GIVEN WHEN ADMITTING. PT WITH HX OF WANTING DRUGS OR REFUSING CARE NEEDED. PER REPORT IN ER, PT REFUSED ECHO UNLESS GIVEN DILUADID AND THEN REFUSED LABS UNLESS GIVEN MORPHINE. DR MCKEON UPDATED ON PT HX. NO MORE DILUADID TO BE GIVEN AND MORPHINE D/C'D. PT TO HAVE MRI IN AM, BUT REFUSING UNLESS ATIVAN GIVEN. REPORT GIVEN TO ONCOMING RN.
--- NOTE | 2020-11-30 21:30 | NUR ---
PHYSICIAN CONTACT PT REPORTS SHE HAS TAKEN OXYCODONE 10-325 FOR THE LAST 6 YEARS, CURRENTLY PRESCRIBED BY A PAIN SPECIALIST IN [place]. PT APPEARS AGITATED DUE TO NOT HAVING IT CURRENTLY PRESCRIBED AND STATES SHE IS GOING THROUGH WITHDRAWLS. METAL DRILL OPERATOR PROVIDER NOTIFIED, OT ORDER TO BE GIVEN AT THIS TIME UNTIL DISCUSSED WITH HOSPITALIST IN AM.
--- NOTE | 2020-11-30 22:00 | NUR ---
PT AGITATED D/T LIMITED AMOUNT OF PAIN MEDICATION CURRENTLY PRESCRIBED. OFFERED TYLENOL BUT PT DECLINED. PT CONTINOUSLY RIPPING OF TELE MONITOR AND THROWING ITEMS ACROSS THE ROOM. THIS RN EXPLAINED THE IMPORTANCE OF TELE D/T HEART HISTORY. PT ACCEPTING OF THIS BUT CONTINUES TO BE UPSET AND AGITATED.
--- NOTE | 2020-12-01 04:22 | NUR ---
PT COMPLAINGING OF PAIN OFFERED KPAD,ICE PACKS, AND EXTRA PILLOWS, PT DECLINED
--- NOTE | 2020-12-01 05:30 | NUR ---
THIS BRASS MOLDER HELPER WENT IN TO FIX PT'S TELE MONITOR AND GET MORNING VITALS, PT REFUSED SAID NO BODY IS TOUCHING ME. REPORTED TO RN
--- NOTE | 2020-12-01 05:46 | NUR ---
TENNIS BALL COVER CEMENTER SUMMARY A/OX4, IND TO BATHROOM. PT APPEARED TO SLEEP INTERMITTENTLY. C/O PAIN TO BACK AND ABD. OT DOSE OF OXYCODONE GIVEN, PLEASE SEE PREVIOUS NOTE. PT REFUSING CARE, VITALS, AND TELE. WILL NOTIFY PROVIDER OF TELE MONITOR REFUSAL. BED IN LOWEST POSITION WITH CALL LIGHT IN REACH. WILL CONTINUE TO MONITOR AND REPORT TO ONCOMING RN.
--- NOTE | 2020-12-01 06:45 | NUR ---
PHYSICIAN CONTACT PT REPORTING 05/25 SUBSTERNAL CHEST PAIN/PRESSURE. REFUSING VITALS AND NITRO STATING "IT DOESNT HELP WITH MY PAIN". FARMWORKER BROODER FARM PROVIDER NOTIFIED, ORDERS FOR EKG AND STAT TROPONIN.
[2020-12-01 07:59] LABS: BASOPHILS ABSOLUTE AUTO 0.06 K/mm3 (0.00-0.23); BASOPHILS PERCENT AUTO 1 % (0-2); EOSINOPHILS PERCENT AUTO 1 % (0-6); Hemoglobin 13.3 g/dL (11.5-16.0); IMMATURE GRAN ABSOLUTE AUTO 0.04 K/mm3 (0.00-0.10); IMMATURE GRAN PERCENT AUTO 0 % (0-1); LYMPHOCYTES ABSOLUTE AUTO 0.97 K/mm3 (0.84-5.20); LYMPHOCYTES PERCENT AUTO 8 % (21-46); MONOCYTES ABSOLUTE AUTO 0.72 K/mm3 (0.16-1.47); MONOCYTES PERCENT AUTO 6 % (4-13); Mean Corpuscular HGB 25.7 pg (26.0-34.0); Mean Corpuscular HGB Conc 30.9 g/dL (31.5-36.5); Mean Corpuscular Volume 83 fL (80-100); Mean Platelet Volume 10.9 fL (9.1-12.4); NEUTROPHILS PERCENT AUTO 85 % (41-73); Platelet Count 208 K/mm3 (150-400); RDW Standard Deviation 45.2 fL (35.1-46.3); Red Blood Cell Count 5.18 M/mm3 (3.80-5.20); White Blood Cell Count 12.79 K/mm3 (4.00-11.30)
[2020-12-01 08:17] LABS: Alanine Aminotransfer (ALT/SGP 18 U/L (12-78); Albumin, Blood 3.7 g/dL (3.4-5.0); Albumin/Globulin Ratio 0.9 (0.8-1.8); Alk Phos 74 U/L (50-136); Anion Gap 6 mmol/L (6-16); Aspartate Aminotrans (AST/SGOT 9 U/L (12-37); Bilirubin, Total 0.6 mg/dL (0.1-1.0); Blood Urea Nitrogen 4 mg/dL (8-24); Bun/Creatinine Ratio 4.1 (12.0-20.0); CO2, Blood 24 mmol/L (21-32); Calcium, Blood 8.5 mg/dL (8.5-10.1); Chloride, Blood 110 mmol/L (98-108); Creatinine, Blood 0.97 mg/dL (0.40-1.00); Globulin, Blood 3.9 g/dL (2.2-4.0); Glomerular Filtration Rate >60 (60-); Glucose, Blood 128 mg/dL (70-99); Potassium, Blood 3.7 mmol/L (3.5-5.5); Sodium, Blood 140 mmol/L (136-145); Total Protein, Blood 7.6 g/dL (6.4-8.2); Troponin I <0.015 ng/mL (0.000-0.040)
--- NOTE | 2020-12-01 11:14 | NUR ---
PT AWAKE AT START OF SHIFT, INDEPENDENT IN RM AND TO BTHRM. PT REFUSING ALL CARE UNLESS GIVEN NARCOTICS. PER SHIFT REPORT, PT HAD EARLIER, C/O NONSPECIFIC CP. REFUSED VS TO BE TAKEN, REFUSED NITRO FOR PAIN, REFUSED EKG, AND REFUSED LABS. PT REFUSED TO WEAR TELE MX, TEARING OFF LEADS, AND THROWING ACROSS RM AND ON FLOOR. SHORTLY AFTER START OF SHIFT, PT TRIED TO FORCE HERSELF TO VOMIT, SPITTING ON FLOOR. HOUSEKEEPING NOTIFIED. PT REFUSING MRI, BOTH YESTERDAY AND TODAY, UNLESS GIVEN SEDATION. DR ARREDONDO NOTIFIED. NO SEDATION MEDICATION TO BE GIVEN. PT REFUSED P/T THIS AM. REPORTED NARCOTIC W/D'S. PT RECEIVED DILAUDID X2, MORPHINE 5MG, AND OXYCODONE, SINCE ADMIT. PT NOT SHOWING S/SX'S OF GOING THRU W/D'S. DR ARREDONDO IN TO SEE PT THIS AM. REVIEWED RESULTS OF TESTS THAT HAD BEEN DONE; PT BARGINED FOR NARCOTICS FOR EACH TEST OBTAINED. PT TO F/U WITH RAILS DEVELOPER OUTPT FOR POSSIBLE OVARIAN CYST. DR ARREDONDO EXPLAINED PLAN OF CARE. PT JUST WANTING NARCOTICS. NONE TO BE GIVEN. PT STATED THAT SHE WANTED TO GO HOME THEN. DR ARREDONDO INFORMED PT THAT SHE WOULD PLACE D/C ORDERS. PT AGREEABLE TO THAT. PT THEN REQUESTED IV TO BE REMOVED; D/C'D WNL'S. PT THEN GOT DRESSED AND WALKED OUT BEFORE D/C ORDERS COMPLETE AND PRINTED OFF. PT ABLE TO USE ALL EXTREMITIES W/O DIFFICULTY. PT USING PHONE WITH BOTH HANDS AND ABLE TO WALK W/O DIFFICULTY DOWN ARAMBULA AND TO ELEVATOR. PT LEFT A.M.A.
== END 2020-12-01 11:00 | disposition left against medical advice (07) ==
LOC: ER 07:12 → ERHOLD 07:13 → MEDS 16:24 → ENPENDDIS 12-01 10:48 → MEDS 12-01 11:00
PROVIDERS: Emergency Medicine; ADMIT Internal Medicine
DX: R10.31 Right lower quadrant pain (principal); I11.0 Hypertensive heart disease with heart failure; I50.9 Heart failure, unspecified; R53.1 Weakness; I25.10 Atherosclerotic heart disease of native coronary artery without angina pectoris; E66.9 Obesity, unspecified; Z68.36 Body mass index [BMI] 36.0-36.9, adult; Z87.891 Personal history of nicotine dependence; Z88.6 Allergy status to analgesic agent; Z88.0 Allergy status to penicillin; Z88.8 Allergy status to other drugs, medicaments and biological substances; Z91.018 Allergy to other foods; Z95.1 Presence of aortocoronary bypass graft
CPT/HCPCS: 36415; 70450; 74177; 80053; 81001; 81025; 82607; 82746; 82947; 83690; 83880; 84443; 84484; 85025; 85651; 87086; 93005; 93010; A9270; A9270-GY; J1170; J2270; J2405; J7030; Q9967

== ENCOUNTER 2020-12-09 14:28 | Inpatient (IN) | payer OTHER ==
[~2020-12-09] VITALS: Ht 167.6 cm; Wt 102.0 kg
[2020-12-09 15:46] LABS: BASOPHILS ABSOLUTE AUTO 0.05 K/mm3 (0.00-0.23); BASOPHILS PERCENT AUTO 0 % (0-2); EOSINOPHILS PERCENT AUTO 0 % (0-6); Hematocrit 48.1 % (33.0-51.0); Hemoglobin 15.6 g/dL (11.5-16.0); IMMATURE GRAN ABSOLUTE AUTO 0.05 K/mm3 (0.00-0.10); IMMATURE GRAN PERCENT AUTO 0 % (0-1); LYMPHOCYTES PERCENT AUTO 9 % (21-46); MONOCYTES ABSOLUTE AUTO 0.69 K/mm3 (0.16-1.47); MONOCYTES PERCENT AUTO 5 % (4-13); Mean Corpuscular HGB 26.2 pg (26.0-34.0); Mean Corpuscular HGB Conc 32.4 g/dL (31.5-36.5); Mean Corpuscular Volume 81 fL (80-100); NEUTROPHILS ABSOLUTE AUTO 12.18 K/mm3 (1.96-9.15); NEUTROPHILS PERCENT AUTO 86 % (41-73); Platelet Count 284 K/mm3 (150-400); RDW Coefficient Variation 15.1 % (11.7-14.2); Red Blood Cell Count 5.96 M/mm3 (3.80-5.20); White Blood Cell Count 14.17 K/mm3 (4.00-11.30)
[2020-12-09 15:50] LABS: Calcium, Ionized (POC) 1.13 mmol/L (1.10-1.46); Chloride (POC) 100 mmol/L (98-108); Creatinine (POC) 0.9 mg/dL (0.6-1.0); Glucose (ISTAT POC) 132 mg/dL (70-99); Sodium (POC) 138 mmol/L (135-148); Total CO2 (POC) 28 mmol/L (21-32)
[2020-12-09 16:06] LABS: Alanine Aminotransfer (ALT/SGP 18 U/L (12-78); Albumin, Blood 3.9 g/dL (3.4-5.0); Albumin/Globulin Ratio 0.9 (0.8-1.8); Alk Phos 80 U/L (50-136); Anion Gap 3 mmol/L (6-16); Aspartate Aminotrans (AST/SGOT 13 U/L (12-37); Bilirubin, Total 0.5 mg/dL (0.1-1.0); Blood Urea Nitrogen 10 mg/dL (8-24); Bun/Creatinine Ratio 11.3 (12.0-20.0); CO2, Blood 26 mmol/L (21-32); Calcium, Blood 9.4 mg/dL (8.5-10.1); Chloride, Blood 106 mmol/L (98-108); Creatinine, Blood 0.89 mg/dL (0.40-1.00); Globulin, Blood 4.5 g/dL (2.2-4.0); Glomerular Filtration Rate >60 (60-); Glucose, Blood 132 mg/dL (70-99); Potassium, Blood 3.9 mmol/L (3.5-5.5); Sodium, Blood 135 mmol/L (136-145); Total Protein, Blood 8.4 g/dL (6.4-8.2); Troponin I <0.015 ng/mL (0.000-0.040)
--- NOTE | 2020-12-09 18:52 | NUR ---
PT TO ICU 16 @1820. PT ALERT AND ORIENTED, COMPLAINS OF 10/10 CHEST PAIN. NITRO GTT @ 50 MCG INCREASED TO 100 MCG. PT HAS EXTENSIVE CARDIAC HISTORY, PT REPORTS THAT PAIN IS USUALLY RELIEVED WITH "DILAUDID OR MORPHINE". RIGHT FEMORAL GROIN ACCESS SITE SOFT, NONTENDER, SMALL AMOUNT OF BLOOD UNDER DRESSING, NO EVIDENCE OF NEW/WORSENING BLEEDING. DISTAL PULSES/PALLOR WNL. PT HYPERTENSIVE AT THIS TIME. AWAITING ORDERS FROM ENTERPRISE MANAGER. WILL REPORT TO ONCOMING NURSE.
--- NOTE | 2020-12-09 19:02 | NUR ---
PT CONTINUES TO REPORT 10/[address] CALL TO DR. GALVAN REGARDING PT'S UNCONTROLLED PAIN. PHYSICIAN REQUESTING HOSPTITALIST CONSULT FOR MANAGEMENT OF PT'S "CHRONIC PAIN SYNDROME". THIS RN WILL CONSULT HOSPITALIST PER REQUEST.
[2020-12-09] MEDS ORDERED: Percocet 5-3251 EACH PO (20:18)
--- NOTE | 2020-12-09 23:29 | NUR ---
ASSUMED CARE AT 1900 PT LAYING IN BED RATING PAIN 10/10 TO CHEST AND BACK GOING UP TO HER JAW, DR GALVAN IN UNIT AND DISCUSSED PAIN WITH PT. HOSPITALIST NOTIFIED OF CONSULT AND PAGE CALDERON AND DR GALVAN HAD A PHONE DISCUSSION ABOUT PAIN CONTROL. NEW ORDERS FOR DUILADID PROVIDED BY PAGE AND GIVEN. PAGE LATER ALSO PROVIDED NEW ORDERS TO REFLECT WHAT PAIN LUCINA PT IS ON AT HOME. PAIN IS NOW 7/10, 6/10 IS ACCEPTABLE FOR PT. PT IS ALERT/ORIENTED X4 AND IS ABLE TO MAKE HER NEEDS KNOWN. SPO2 >95% ON RA. HR 60-80'S. FROM [id number] SBP 120-170'S; NITRO GTT INFUSING AT 100MCG/MIN. AT 0, NITRO GTT EMPTY AND NEEDING TO BE CHANGED, BEFORE RESTARTING GTT, BP 113/67, NITRO NOW ON SB, SBP HAS BEEN 100-110 WITH NITRO ON SB. PT ALSO NAUSEAS AROUND 2200 AND ADDRESSED WITH ATIVAN. PT ABLE TO TOLERATE PO INTAKE. RT GROIN SITE CHECK Q15 MIN X4, Q30 MIN X2, AND NOW Q1HR. SITE IS PAINFUL TO TOUCH BUT NO SIGNS OF BLEEDING OR HEMATOMA. PT ABLE TO KEEP LEG STRAIGHT. NS NOW INFUSING AT 150ML/HR. SEE ADMISSION ASSESSMENT FOR FULL ASSESSMENT.
[2020-12-10 02:42] LABS: BASOPHILS ABSOLUTE AUTO 0.04 K/mm3 (0.00-0.23); BASOPHILS PERCENT AUTO 0 % (0-2); EOSINOPHILS ABSOLUTE AUTO 0.15 K/mm3 (0.00-0.68); EOSINOPHILS PERCENT AUTO 1 % (0-6); Hematocrit 40.5 % (33.0-51.0); Hemoglobin 12.9 g/dL (11.5-16.0); IMMATURE GRAN ABSOLUTE AUTO 0.07 K/mm3 (0.00-0.10); IMMATURE GRAN PERCENT AUTO 1 % (0-1); LYMPHOCYTES ABSOLUTE AUTO 1.38 K/mm3 (0.84-5.20); LYMPHOCYTES PERCENT AUTO 10 % (21-46); MONOCYTES ABSOLUTE AUTO 1.23 K/mm3 (0.16-1.47); MONOCYTES PERCENT AUTO 9 % (4-13); Mean Corpuscular HGB 25.9 pg (26.0-34.0); Mean Corpuscular HGB Conc 31.9 g/dL (31.5-36.5); Mean Corpuscular Volume 81 fL (80-100); Mean Platelet Volume 10.6 fL (9.1-12.4); NEUTROPHILS ABSOLUTE AUTO 11.61 K/mm3 (1.96-9.15); NEUTROPHILS PERCENT AUTO 80 % (41-73); Platelet Count 227 K/mm3 (150-400); RDW Coefficient Variation 15.4 % (11.7-14.2); RDW Standard Deviation 45.5 fL (35.1-46.3); Red Blood Cell Count 4.98 M/mm3 (3.80-5.20); White Blood Cell Count 14.48 K/mm3 (4.00-11.30)
[2020-12-10 03:08] LABS: Anion Gap 7 mmol/L (6-16); Blood Urea Nitrogen 14 mg/dL (8-24); Bun/Creatinine Ratio 12.7 (12.0-20.0); CHOL/HDL RATIO 2.9; CO2, Blood 25 mmol/L (21-32); Calcium, Blood 8.5 mg/dL (8.5-10.1); Chloride, Blood 103 mmol/L (98-108); Cholesterol 132 mg/dL (50-200); Glomerular Filtration Rate 59 (60-); Glucose, Blood 142 mg/dL (70-99); HDL Cholesterol 45 mg/dL (>39); LDL/HDL RATIO 0.9; Low Density Lipoprotein Chol 41 mg/dL (0-110); Potassium, Blood 3.1 mmol/L (3.5-5.5); Sodium, Blood 135 mmol/L (136-145); Triglycerides 230 mg/dL (30-140); Troponin I 0.467 ng/mL (0.000-0.040); Very Low Density Lipoprot Chol 46 mg/dL (6-28)
[2020-12-10 04:15] LABS: Influenza A, PCR NEGATIVE (NEGATIVE); Influenza B, PCR NEGATIVE (NEGATIVE); Resp Syncytial Virus, PCR NEGATIVE (NEGATIVE); SARS-Cov-2 (COVID-19) PCR, MMC NEGATIVE (NEGATIVE)
--- NOTE | 2020-12-10 05:46 | NUR ---
0230 UPDATE PT WOKE UP IN A SWEAT RATING CHEST PAIN A 10/10. NITRO RESTARTED AT 25MCG/MIN. EKG COMPLETED, NO CHANGE NOTED. PRN ATIVAN GIVEN FOR NAUSEA. SCHEDULED PERCOCET GIVEN AT 0300. PT PAIN RATING NOW 9/10. PRN DUILADID GIVEN Q2HR.
--- NOTE | 2020-12-10 06:55 | NUR ---
END OF SHIFT SUMMARY PT IS ALERT/ORIENTED X4 AND IS ABLE TO MAKE HER NEEDS KNOWN. T/O SHIFT PAIN CONTROL WAS A CHALLENGE, PRN DUILADID GIVEN Q2HR AND SCHEDULED PERCOCET GIVEN BRINING PAIN DOWN FROM 05/25 TO 03/25. SPO2 >95% ON RA. HR 70-80'S. SBP 100-130'S WITH NITRO INFUSING AT 20MCG/MIN, WHEN TITRATING NITRO UP ATTEMPTING TO HELP WITH CHEST PAIN, PT BECAME NAUSEOUS AND HAD ONE EPISODE OF EMISIS. PRN ATIVAN GIVEN FOR NAUSEA. RT GROIN SITE SHOWED NO SIGNS OF BLEEDING OR HEMATOMA ALL SHIFT. DR WELLS NOTIFIED OF PT POTASSIUM OF 3.1 THIS AM, NEW ORDERS PROVIDED FOR 40 KCL IV X1. WILL REPORT TO AM RN WHEN AVAILABLE.
[2020-12-10 09:17] LABS: U Benzodiazapine Screen DETECTED; U Opiates Screen DETECTED
[2020-12-10 09:18] LABS: U Amphetamine Screen Not Detected; U Barbituate Screen Not Detected; U Buprenorphine Screen Not Detected; U Cannabinoids Screen DETECTED; U Cocaine Screen Not Detected; U Methadone Screen Not Detected; U Methamphetamine Screen Not Detected; U Oxycodone Screen DETECTED; U Phencyclidine Screen Not Detected; U Propoxyphene Screen Not Detected
--- NOTE | 2020-12-10 14:00 | NUR ---
REASSESSMENT PT CONTINUES TO COMPLAIN OF CHEST PAIN, BACK PAIN, ARM PAIN AND JAW PAIN. SHE STATES HER JAW PAIN GETS WORSE WHEN SHE TALKS AND DILAUDID IS THE ONLY THING THAT SEEMS TO HELP THAT. SHE REQUESTS ATIVAN FOR HER NAUSEA. DISCUSSED DIFFERENT OPTIONS FOR NAUSEA MANAGEMENT WITH DR. YA BUT BECAUSE OF PT'S ALLERGIES THERE WAS NOTHING ELSE WE COULD THINK OF. NITRO TURNED OFF AFTER DISCUSSING IT WITH DR. GALVAN AND PT HAD NO CHANGE IN CHEST PAIN. PT ATE LUNCH WITHOUT DIFFICULTY. SHE HAS BEEN TALKING AND TEXTING ON HER PHONE THROUGHOUT THE MORNING. LUNGS STILL HAVE A FEW SCATTERED EXP WHEEZES, RA. SR, BP STABLE. PT HAS BEEN USING THE BEDPAN TO VOID. EXPLAINED TO PT THAT SHE IS WELL PAST HER UPTIME FROM THE CATH AND SHE CAN GET UP TO THE BR. PT STILL USED A BEDPAN THE NEXT TIME SHE HAD TO VOID WHEN ANOTHER NURSE WENT IN TO ASSIST. WILL ENCOURAGE PT TO GET OUT OF BED THIS AFTERNOON. CONTINUING TO MONITOR.
--- NOTE | 2020-12-10 18:25 | NUR ---
Met with pt today to discuss her chronic pain. She reports feeling good about where things stand currently, as she has a pain specialist, and she is taking a total of 6 10/325mg [place] in a 24 hour period. She reports she and her boyfriend are raising 7 children among them, and she is in charge of the discipline, cooking and cleaning. She states she generally is able to do these things, even with her cardiac and other serious conditions. She denies having any concerns other than the current increase in pain. She states feeling hopeful that this will resolve on it's own. I will remain available for therapeutic listening, or assist with care goals.
--- NOTE | 2020-12-10 19:01 | NUR ---
SHIFT SUMMARY PT'S TROPONIN CONTINUED TO TREND UP TODAY SO DR. GALVAN DECIDED TO KEEP PT OVERNIGHT. PT CONTINUES TO COMPLAIN OF CHEST PAIN. ONCE TODAY SHE ASKED FOR HER PAIN MEDICATION, WHICH WASN'T DUE FOR 10 MINUTES, BUT THEN WAS ASLEEP AND DIDN'T WAKE TO VOICE IN TEN MINUTES WHEN HER MEDICATION WAS AVAILABLE. HER LUNGS WERE CLEAR THIS EVENING. SR, BP STABLE. REPEAT EKG DONE AT DR. GALVAN'S REQUEST. PT ATE LUNCH BUT REFUSED DINNER. SHE IS GETTING UP TO THE TOILET TO VOID. HAD A BM THIS AFTERNOON. GROIN SITE REMAINS C/D/I, SOFT WITHOUT HEMATOMA. CONTINUING TO MONITOR.
--- NOTE | 2020-12-11 06:33 | NUR ---
BEGINNING OF SHIFT, PT WAS CALLING TO VERIFY WHEN PAIN MEDS WERE DUE. PT ASKED FOR SNACK SINCE SHE MISSED DINNER. PT STATES PAIN IS ALL THE TIME, SOMETIMES RADIATING DOWN ARM AND UP JAW. HAS CONT ON RA, VSS. PT HAS SLEPT BETWEEN DOSES OF DILAUDID & ATIVAN. BOTH MIDNOC AND 0400 DOSES HELD. PT WAS MED AT 0230, AND SNACK GIVEN PER REQUEST. PT HAS BEEN INDEPENDENT TO TOILET. AWAIT LAB DRAW THIS AM, PT WAS NOT AWAKENED DURING ROUTINE ROUNDS.
[2020-12-11 07:47] LABS: Potassium, Blood 3.9 mmol/L (3.5-5.5)
[2020-12-11 07:49] LABS: Troponin I 3.9 ng/mL (0.000-0.040)
--- NOTE | 2020-12-11 08:57 | NUR ---
INITIAL ASSESSMENT PATIENT RESTING IN BED UPON AUTO MOTOR MECHANIC ENTERING. PATIENT AMBULATED WELL TO CHAIR. PATIENT ALERT AND ORIENTED X 4, AFEBRILE. PATIENT WITHDRAWN, WITH FLAT AFFECT. PATIENT COMPLAINS OF CHRONIC PRESSURE TO CHEST AND STABBING BACK PAIN 04/25. PATIENT GIVEN SCHEDULED PERCOCET. PATIENT DENIES N/T. LUNGS CLEAR T/O. PATIENT SATTING GREATER THAN 90% ON RA. DENIES COUGH. PATIENT IN SR, HR 60S TO 70S. SBP 120S TO 130S. PATIENT STATED NO WHEN ASKED IF NAUSEAOUS THIS MORNING. PATIENT ASKED IF SHE COULD HAVE PRN DILAUDID AND NURSE INFORMED HER IT WAS NOT TIME YET. PATIENT THEN BECAME NAUSEAOUS AND REQUESTED EMESIS BAG. PATIENT INFORMED SHE COULD NOT YET HAVE PRN ATIVAN FOR NAUSEA EITHER. LAST BM DOCUMENTED YESTERDAY. PATIENT REFUSED BREAKFAST. WNL. R FEMORAL COMPUTERIZED MILL MILL RECORDER ACCESS SITE WNL- NO BLEEDING, BRUISING, OR HEMATOMA NOTED. DRESSING C/D/I. IVS FLUSHED AND SALINE LOCKED. TROPONINS TRENDING DOWN THIS AM. CALL LIGHT IN REACH. WILL CONTINUE TO MONITOR PATIENT FREQUENTLY THROUGHOUT SHIFT.
[2020-12-11] MEDS ORDERED: TICA90TA PO (11:30)
--- NOTE | 2020-12-11 11:56 | NUR ---
SHIFT SUMMARY/ DISCHARGE PATIENT REMAINED ALERT AND ORIENTED X 4. PATIENT COOPERATIVE. PATIENT RECEIVED SCHEDULED AND PRN PAIN MEDICATIONS FOR BACK, CHEST, AND JAW PAIN. PATIENT REMAINED AFEBRILE. PATIENT REMAINED SATTING 90% AND GREATER ON RA. PATIENT SLIGHTLY SOB WHEN AMBULATING THROUGH PCU HALLWAY WITH NURSE. PATIENT STATED SHE IS SOB AT BASELINE WITH ACTIVITY. AFTER ARRIVING BACK TO ROOM AND SITTING DOWN ON BED PATIENT DID SAY THAT SHE WAS "RECOVERING FROM THE SOB FASTER THAN SHE NORMALLY DOES" AND THAT "MAYBE THE STENTS ARE HELPING A LITTLE". PATIENT AMBULATED WELL IN HALLWAY; NO SYNCOPE OR BALANCE ISSUES VOICED OR NOTED. FEMORAL SITE REMAINED WNL. PATIENT REMAINED IN SR, HR 60S TO 70S. SBP 120S TO 140S. PATIENT COMPLAINED OF NAUSEA OT THIS MORNING. NO BM THIS SHIFT. PATIENT REFUSED TO EAT BREAKFAST AND DID NOT ASK FOR ANY SNACKS. PATIENT HAD ADEQUATE URINE OUTPUT. NO CHANGE TO SKIN. R FEM SITE REMAINED UNCHANGED; NO BLEEDING, BRUISING, OR HEMATOMA NOTED. IVS REMOVED. HUMAN RESOURCES TRAINING MANAGER HEMODYNAMIC REPORT, PROGRESS NOTES, CONSULTATION, PROGRESS NOTES FAXED UP TO PATIENT'S PRIMARY FOLDER STITCHER OPERATOR DR. GAY CHOWDARY AT [facility] PER DR. GALVAN REQUEST. SPOKE WITH OFFICE AND THEY STATED THEY WOULD CALL PATIENT TO MAKE HER AN APPOINTMENT WITH DR. CHOWDARY WITHIN THE NEXT TWO WEEKS. [facility] DISCOUNT CARD AND [employer] SAVING PROGRAM APPLICATION PRINTED OUT AND GIVEN TO PATIENT. PATIENT GIVEN ALL DISCHARGE INFORMATION. PRINTOUTS GIVEN FOR NEW MEDICATION, FEMORAL SITE CARE, HEART HEALTHY DIET, CORONARY ANGIOGRAM WITH STENTS. PATIENT STATED THAT SHE UNDERSTOOD ALL EDUCATION AND INFORMATION GIVEN. PATIENT INFORMED THAT [facility] [employer] CALLED IN TO [facility] ON [address]. PATIENT'S BOYFRIEND HERE TO PICK HER UP. PATIENT WALKED OUT BY NURSE TO ADMITTING ([facility]) ENTRANCE. ALL BELONGINGS TAKEN WITH PATIENT. DISCHARGE COMPLETE.
== END 2020-12-11 12:04 | disposition home or self-care (01) | DRG 247 ==
LOC: ER 14:28 → ICUW 14:29 → ER 16:11 → ICUW 16:11
PROVIDERS: Emergency Medicine; Internal Medicine Cardiovascular Disease; Physician Assistant; ADMIT Internal Medicine
PROC: 027035Z Dilation of Coronary Artery, One Artery with Two Drug-eluting Intraluminal Devices, Percutaneous Approach (ICD-10-PCS; principal; 2020-12-10)
PROC: 4A023N7 Measurement of Cardiac Sampling and Pressure, Left Heart, Percutaneous Approach (ICD-10-PCS; 2020-12-10)
PROC: B2151ZZ Fluoroscopy of Left Heart using Low Osmolar Contrast (ICD-10-PCS; 2020-12-10)
PROC: B2111ZZ Fluoroscopy of Multiple Coronary Arteries using Low Osmolar Contrast (ICD-10-PCS; 2020-12-10)
PROC: 4A033BC Measurement of Arterial Pressure, Coronary, Percutaneous Approach (ICD-10-PCS; 2020-12-10)
PROC: B2181ZZ Fluoroscopy of Left Internal Mammary Bypass Graft using Low Osmolar Contrast (ICD-10-PCS; 2020-12-10)
DX: I21.19 ST elevation (STEMI) myocardial infarction involving other coronary artery of inferior wall (principal); I50.22 Chronic systolic (congestive) heart failure; Z20.822 Contact with and (suspected) exposure to COVID-19; I25.10 Atherosclerotic heart disease of native coronary artery without angina pectoris; E66.9 Obesity, unspecified; G43.809 Other migraine, not intractable, without status migrainosus; I11.0 Hypertensive heart disease with heart failure; E87.6 Hypokalemia; D72.829 Elevated white blood cell count, unspecified; I25.5 Ischemic cardiomyopathy; G89.4 Chronic pain syndrome; K44.9 Diaphragmatic hernia without obstruction or gangrene; Z68.35 Body mass index [BMI] 35.0-35.9, adult; I25.2 Old myocardial infarction; Z86.73 Personal history of transient ischemic attack (TIA), and cerebral infarction without residual deficits; Z95.1 Presence of aortocoronary bypass graft; Z90.49 Acquired absence of other specified parts of digestive tract; Z98.891 History of uterine scar from previous surgery; Z90.722 Acquired absence of ovaries, bilateral; Z87.891 Personal history of nicotine dependence; Z88.0 Allergy status to penicillin; Z88.6 Allergy status to analgesic agent; Z88.8 Allergy status to other drugs, medicaments and biological substances; Z79.02 Long term (current) use of antithrombotics/antiplatelets; Z79.82 Long term (current) use of aspirin; Z79.891 Long term (current) use of opiate analgesic; Z79.899 Other long term (current) drug therapy
CPT/HCPCS: 0241U; 36415; 71046; 76937; 80047; 80048; 80053; 80061; 83036; 84132; 84443; 84484; 84703; 85014; 85025; 85347; 93005; 93010; 93459; 93571; 96365; 96374; 96375; 96376; 99152; 99153; 99285-25; A9270; A9270-GY; C1725; C1760; C1769; C1874; C1887; C1894; C9600; C9606; G0378; J0153; J1170; J1644; J2060; J2250; J3010; J3480; J7030; J7040; J7050; Q9967

== ENCOUNTER 2020-12-28 19:10 | Emergency (ER) | payer OTHER ==
[~2020-12-28] VITALS: Ht 167.6 cm; Wt 99.8 kg
[~2020-12-28 19:10] MED LIST changes: +Percocet 5-3251 EACH PO; +TICA90TA PO
[2020-12-28] MEDS ORDERED: CLOP75 PO (19:47)
[2020-12-28 20:12] LABS: BASOPHILS ABSOLUTE AUTO 0.06 K/mm3 (0.00-0.23); BASOPHILS PERCENT AUTO 1 % (0-2); EOSINOPHILS ABSOLUTE AUTO 0.05 K/mm3 (0.00-0.68); EOSINOPHILS PERCENT AUTO 1 % (0-6); Hematocrit 45.6 % (33.0-51.0); Hemoglobin 14.4 g/dL (11.5-16.0); IMMATURE GRAN ABSOLUTE AUTO 0.04 K/mm3 (0.00-0.10); IMMATURE GRAN PERCENT AUTO 0 % (0-1); LYMPHOCYTES ABSOLUTE AUTO 1.21 K/mm3 (0.84-5.20); LYMPHOCYTES PERCENT AUTO 11 % (21-46); MONOCYTES ABSOLUTE AUTO 0.59 K/mm3 (0.16-1.47); MONOCYTES PERCENT AUTO 5 % (4-13); Mean Corpuscular HGB 25.9 pg (26.0-34.0); Mean Corpuscular HGB Conc 31.6 g/dL (31.5-36.5); Mean Corpuscular Volume 82 fL (80-100); Mean Platelet Volume 10.1 fL (9.1-12.4); NEUTROPHILS ABSOLUTE AUTO 8.99 K/mm3 (1.96-9.15); NEUTROPHILS PERCENT AUTO 82 % (41-73); Platelet Count 248 K/mm3 (150-400); RDW Coefficient Variation 15.9 % (11.7-14.2); RDW Standard Deviation 46.5 fL (35.1-46.3); Red Blood Cell Count 5.57 M/mm3 (3.80-5.20); White Blood Cell Count 10.94 K/mm3 (4.00-11.30)
[2020-12-28 20:37] LABS: Alanine Aminotransfer (ALT/SGP 19 U/L (12-78); Alk Phos 76 U/L (50-136); Anion Gap 6 mmol/L (6-16); Aspartate Aminotrans (AST/SGOT 12 U/L (12-37); Bilirubin, Total 0.6 mg/dL (0.1-1.0); Blood Urea Nitrogen 9 mg/dL (8-24); Bun/Creatinine Ratio 9.4 (12.0-20.0); CO2, Blood 23 mmol/L (21-32); Chloride, Blood 108 mmol/L (98-108); Creatinine, Blood 0.95 mg/dL (0.40-1.00); Globulin, Blood 4.1 g/dL (2.2-4.0); Glomerular Filtration Rate >60 (60-); Glucose, Blood 102 mg/dL (70-99); Potassium, Blood 3.7 mmol/L (3.5-5.5); Sodium, Blood 137 mmol/L (136-145); Total Protein, Blood 8.1 g/dL (6.4-8.2); Troponin I <0.015 ng/mL (0.000-0.040)
== END 2020-12-28 22:52 | disposition home or self-care (01) ==
LOC: ER 19:10
PROVIDERS: Emergency Medicine
DX: R10.31 Right lower quadrant pain (principal); R00.2 Palpitations; I11.0 Hypertensive heart disease with heart failure; I50.9 Heart failure, unspecified; Z98.890 Other specified postprocedural states; Z79.899 Other long term (current) drug therapy; Z88.8 Allergy status to other drugs, medicaments and biological substances; Z79.82 Long term (current) use of aspirin; Z79.02 Long term (current) use of antithrombotics/antiplatelets
CPT/HCPCS: 36415; 71046; 80053; 83880; 84484; 85025; 93005; 93010; 93926; 96374; 96375; 99284-25; A9270; J1170; J2060

== ENCOUNTER 2020-12-29 11:33 | Observation (INO) | payer OTHER ==
[~2020-12-29] VITALS: Ht 167.6 cm; Wt 101.5 kg
[2020-12-29 12:17] LABS: BASOPHILS ABSOLUTE AUTO 0.05 K/mm3 (0.00-0.23); BASOPHILS PERCENT AUTO 0 % (0-2); EOSINOPHILS ABSOLUTE AUTO 0.07 K/mm3 (0.00-0.68); EOSINOPHILS PERCENT AUTO 1 % (0-6); Hematocrit 47.4 % (33.0-51.0); Hemoglobin 15.1 g/dL (11.5-16.0); IMMATURE GRAN ABSOLUTE AUTO 0.03 K/mm3 (0.00-0.10); IMMATURE GRAN PERCENT AUTO 0 % (0-1); LYMPHOCYTES ABSOLUTE AUTO 0.99 K/mm3 (0.84-5.20); LYMPHOCYTES PERCENT AUTO 8 % (21-46); MONOCYTES ABSOLUTE AUTO 0.72 K/mm3 (0.16-1.47); MONOCYTES PERCENT AUTO 6 % (4-13); Mean Corpuscular HGB 25.9 pg (26.0-34.0); Mean Corpuscular HGB Conc 31.9 g/dL (31.5-36.5); Mean Corpuscular Volume 81 fL (80-100); Mean Platelet Volume 10.5 fL (9.1-12.4); NEUTROPHILS ABSOLUTE AUTO 10.05 K/mm3 (1.96-9.15); NEUTROPHILS PERCENT AUTO 84 % (41-73); Platelet Count 272 K/mm3 (150-400); RDW Coefficient Variation 16.2 % (11.7-14.2); RDW Standard Deviation 47.2 fL (35.1-46.3); Red Blood Cell Count 5.82 M/mm3 (3.80-5.20); White Blood Cell Count 11.91 K/mm3 (4.00-11.30)
[2020-12-29 12:27] LABS: Alanine Aminotransfer (ALT/SGP 20 U/L (12-78); Albumin, Blood 4.2 g/dL (3.4-5.0); Alk Phos 77 U/L (50-136); Anion Gap 5 mmol/L (6-16); Aspartate Aminotrans (AST/SGOT 16 U/L (12-37); Bilirubin, Total 0.5 mg/dL (0.1-1.0); Blood Urea Nitrogen 7 mg/dL (8-24); Bun/Creatinine Ratio 8.3 (12.0-20.0); CO2, Blood 24 mmol/L (21-32); Calcium, Blood 9.2 mg/dL (8.5-10.1); Chloride, Blood 107 mmol/L (98-108); Creatinine, Blood 0.85 mg/dL (0.40-1.00); Globulin, Blood 4.4 g/dL (2.2-4.0); Glomerular Filtration Rate >60 (60-); Glucose, Blood 134 mg/dL (70-99); Potassium, Blood 3.9 mmol/L (3.5-5.5); Sodium, Blood 136 mmol/L (136-145); Total Protein, Blood 8.6 g/dL (6.4-8.2); Troponin I <0.015 ng/mL (0.000-0.040)
[2020-12-29 14:46] LABS: Source, Urine Catheter
[2020-12-29 15:12] LABS: Appearance, Urine Clear (Clear); Bilirubin, Urine Neg (Neg); Blood, Urine 4+ (Neg); Color, Urine Yellow (P-Yellow); Glucose Qualitative, Urine Neg (Neg); Ketones, Urine Neg (Neg); Leukocyte Esterase, Urine 2+ (Neg); Nitrite, Urine Neg (Neg); Protein, Urine 2+ (Neg); Urobilinogen, Urine NORM (Normal)
[2020-12-29 15:28] LABS: Bacteria Mod /hpf; Squamous Epithelial Cells Few /hpf (Few)
--- NOTE | 2020-12-29 19:27 | NUR ---
1700 RECEIVED PT TO RM 305 VIA W/C FROM ER. PT IS A&O, INDEPENDENT IN AND TO [facility]. RECEIVED REPORT FROM ELISABETH COLEMAN. PT AMBULATED IN ER W/O DIFFICULTY. CAME TO ER WITH C/O RECURRENT CP. PER REPORT, ALL CARDIAC TESTS NEG TO PRESENT. SR @ 75 PER TELE. NO RELIEF FROM NITRO OR GI COCKTAIL, ONLY NARCOTICS. VSS; SEE CHART. SITTING UP ON EOB, TALKING ON PHONE. AMBULATING IN RM W/O DIFFICULTY. NO S/SX OF DISTRESS NOTED OR REPORTED. HOME MEDICATIONS REVIEWED AND UPDATED. CALL LT IN REACH. REPORT GIVEN TO HORACE COLEMAN.
--- NOTE | 2020-12-29 21:15 | NUR ---
PHYSICIAN CORRESPONDENCE C/O PAIN/ANXIETY/RESTLESS LEGS. MEDICATION CLAIM HX NOTED PERCOCET 10/325 Q4P, LORAZEPAM 1MG @ BEDTIME, AND REQUIP 0.5MG @ BEDTIME. OT DOSE OF PERCOCET 5/325 STATED OK FOR THIS RN TO GIVE WITH THE OTHER PRN DOSE AND THAT PATIENT WILL NEED TO DISCUSS PAIN MANAGEMENT WITH PHYSICIAN IN AM. OT DOSE OF LORAZEPAM THIS HS. REQUIP SCHEDULED TO BE GIVEN AT BEDTIME. NO OTHER ORDERS AT THIS TIME.
--- NOTE | 2020-12-29 23:38 | NUR ---
PHYSICIAN CORRESPONDENCE PT CONTINUES TO C/O OF RESTLESSNESS AND AXIETY. OFFERED SHOWER; REFUSED. STATES THAT WOULD JUST CHANGE HER BODY TEMPERATURE. OFFERED WARM BLANKET TO PLACE ON LEGS. EXPLAINED TO PATIENT THAT THERE IS LIKELY NOT MUCH MORE TO OFFER FAR MEDICATIONS. NEW ORDERS FOR MELATONIN 5MG HS, HYDROXIZINE 50MG OT AND TO REMOVE TELE FOR SHOWER.
[2020-12-30 00:49] LABS: BASOPHILS ABSOLUTE AUTO 0.05 K/mm3 (0.00-0.23); BASOPHILS PERCENT AUTO 0 % (0-2); EOSINOPHILS ABSOLUTE AUTO 0.16 K/mm3 (0.00-0.68); EOSINOPHILS PERCENT AUTO 1 % (0-6); Hematocrit 40.8 % (33.0-51.0); Hemoglobin 12.9 g/dL (11.5-16.0); IMMATURE GRAN ABSOLUTE AUTO 0.04 K/mm3 (0.00-0.10); IMMATURE GRAN PERCENT AUTO 0 % (0-1); LYMPHOCYTES ABSOLUTE AUTO 1.74 K/mm3 (0.84-5.20); LYMPHOCYTES PERCENT AUTO 15 % (21-46); MONOCYTES ABSOLUTE AUTO 1.16 K/mm3 (0.16-1.47); MONOCYTES PERCENT AUTO 10 % (4-13); Mean Corpuscular HGB Conc 31.6 g/dL (31.5-36.5); Mean Corpuscular Volume 82 fL (80-100); Mean Platelet Volume 10.1 fL (9.1-12.4); NEUTROPHILS ABSOLUTE AUTO 8.26 K/mm3 (1.96-9.15); NEUTROPHILS PERCENT AUTO 72 % (41-73); Platelet Count 213 K/mm3 (150-400); RDW Standard Deviation 47.7 fL (35.1-46.3); Red Blood Cell Count 4.97 M/mm3 (3.80-5.20); White Blood Cell Count 11.41 K/mm3 (4.00-11.30)
[2020-12-30 01:05] LABS: Bun/Creatinine Ratio 11.2 (12.0-20.0); Calcium, Blood 8.5 mg/dL (8.5-10.1); Creatinine, Blood 1.25 mg/dL (0.40-1.00); Potassium, Blood 3.5 mmol/L (3.5-5.5)
--- NOTE | 2020-12-30 05:48 | NUR ---
SHIFT SUMMARY A/O, ABLE TO MAKE NEEDS KNOWN. COOPERATIVE WITH CARE. CALLS AND ANSWERS QUESTIONS APPROPRIATELY. CONTINUES TO C/O PAIN/DISCOMFORT TO L CHEST/JAW AND NOW L ARM. RATES 10/10 WITH NO RELIEF FROM CURRENT PAIN MEDICATIONS. REMAINS ANXIOUS AND PACING IN ROOM ON AND OFF T/O NIGHT. STATED I HAVE NOT BEEN ABLE TO SLEEP FOR 2 DAYS AND WAS HOPING TO GET SOMETHING THAT WOULD KNOCK HER OUT. X2 CALLS PLACED TO ON-CALL PHYSICIAN REGARDING PAIN/ANXIETY SEE PREV RN NOTES. VSS/AFEBRILE; HOWEVER HAS BEEN HYPERTENSIVE THIS AM. NO TELEMETRY EVENTS, RUNNING SR IN 70s. DID NOT APPEAR TO REST MUCH OVERNIGHT. BED REMAINS IN LOWEST POSITION. CALL LIGHT AND BELONGINGS WITHIN REACH. CONTINUE WITH CURRENT PLAN OF CARE.
--- NOTE | 2020-12-30 10:38 | NUR ---
DC NOTE/LEFT AMA PT DISCHARGING TODAY TO HOME. REPORTED CP 10/10 WITH NO RELIEF AFTER PHARMACEUTICAL INTERVENTIONS. DR TAPIA IN TO SEE PATIENT TODAY. PT EXPRESSED FRUSTRATION THAT DOES NOT WANT TO INCREASE PAIN MEDICATION. ANNOUNCED TO THIS RN THAT SHE IS LEAVING AT [facility] AND NEEDED HER IV TAKEN OUT IMMEDIATELY. DR CALLED FOR UPDATE AND PATIENT SIGNED AMA FORM. PT LEFT WITHOUT WC OR ESCORT. STATED HER WAS IN THE PARKING LOT AND WOULD DRIVE HER HOME.
== END 2020-12-30 10:36 | disposition left against medical advice (07) ==
LOC: ER 11:33 → ERHOLD 11:34 → MEDS 17:42
PROVIDERS: Emergency Medicine; ADMIT Internal Medicine
DX: R07.9 Chest pain, unspecified (principal); R00.2 Palpitations; R10.31 Right lower quadrant pain; I25.2 Old myocardial infarction; I11.0 Hypertensive heart disease with heart failure; I50.9 Heart failure, unspecified; I25.10 Atherosclerotic heart disease of native coronary artery without angina pectoris; G89.29 Other chronic pain; E66.9 Obesity, unspecified; D72.829 Elevated white blood cell count, unspecified; Z53.29 Procedure and treatment not carried out because of patient's decision for other reasons; Z86.73 Personal history of transient ischemic attack (TIA), and cerebral infarction without residual deficits; Z95.1 Presence of aortocoronary bypass graft; Z95.5 Presence of coronary angioplasty implant and graft; Z87.891 Personal history of nicotine dependence; Z95.2 Presence of prosthetic heart valve; Z68.36 Body mass index [BMI] 36.0-36.9, adult; Z79.891 Long term (current) use of opiate analgesic; Z79.02 Long term (current) use of antithrombotics/antiplatelets; Z79.82 Long term (current) use of aspirin; Z88.8 Allergy status to other drugs, medicaments and biological substances; Z88.0 Allergy status to penicillin; Z88.6 Allergy status to analgesic agent; Z88.5 Allergy status to narcotic agent; Z91.018 Allergy to other foods; Z88.4 Allergy status to anesthetic agent
CPT/HCPCS: 36415; 71045; 80048; 80053; 81001; 83735; 83880; 84443; 84484; 85025; 87086; 93005; 93010; 93926; 96374; 99285-25; A9270; C9113; G0378

== ENCOUNTER 2021-02-03 20:49 | Emergency (ER) | payer OTHER ==
[~2021-02-03] VITALS: Ht 167.6 cm; Wt 99.8 kg
[2021-02-03 21:43] LABS: BASOPHILS ABSOLUTE AUTO 0.04 K/mm3 (0.00-0.23); BASOPHILS PERCENT AUTO 0 % (0-2); EOSINOPHILS ABSOLUTE AUTO 0.16 K/mm3 (0.00-0.68); EOSINOPHILS PERCENT AUTO 2 % (0-6); Hematocrit 43.2 % (33.0-51.0); Hemoglobin 13.8 g/dL (11.5-16.0); IMMATURE GRAN ABSOLUTE AUTO 0.03 K/mm3 (0.00-0.10); IMMATURE GRAN PERCENT AUTO 0 % (0-1); LYMPHOCYTES ABSOLUTE AUTO 1.41 K/mm3 (0.84-5.20); LYMPHOCYTES PERCENT AUTO 13 % (21-46); MONOCYTES ABSOLUTE AUTO 0.58 K/mm3 (0.16-1.47); MONOCYTES PERCENT AUTO 5 % (4-13); Mean Corpuscular HGB 26.6 pg (26.0-34.0); Mean Corpuscular HGB Conc 31.9 g/dL (31.5-36.5); Mean Corpuscular Volume 83 fL (80-100); Mean Platelet Volume 10.3 fL (9.1-12.4); NEUTROPHILS ABSOLUTE AUTO 8.76 K/mm3 (1.96-9.15); NEUTROPHILS PERCENT AUTO 80 % (41-73); Platelet Count 225 K/mm3 (150-400); RDW Coefficient Variation 16.1 % (11.7-14.2); RDW Standard Deviation 48.4 fL (35.1-46.3); Red Blood Cell Count 5.18 M/mm3 (3.80-5.20); White Blood Cell Count 10.98 K/mm3 (4.00-11.30)
[2021-02-03 22:04] LABS: Alanine Aminotransfer (ALT/SGP 21 U/L (12-78); Albumin, Blood 3.8 g/dL (3.4-5.0); Albumin/Globulin Ratio 0.9 (0.8-1.8); Alk Phos 74 U/L (50-136); Anion Gap 6 mmol/L (6-16); Aspartate Aminotrans (AST/SGOT 13 U/L (12-37); Bilirubin, Total 0.3 mg/dL (0.1-1.0); Blood Urea Nitrogen 11 mg/dL (8-24); Bun/Creatinine Ratio 11.2 (12.0-20.0); CO2, Blood 25 mmol/L (21-32); Calcium, Blood 9.2 mg/dL (8.5-10.1); Chloride, Blood 106 mmol/L (98-108); Creatinine, Blood 0.98 mg/dL (0.40-1.00); Globulin, Blood 4.2 g/dL (2.2-4.0); Glomerular Filtration Rate >60 (60-); Glucose, Blood 124 mg/dL (70-99); Potassium, Blood 3.6 mmol/L (3.5-5.5); Sodium, Blood 137 mmol/L (136-145); Troponin I <0.015 ng/mL (0.000-0.040)
== END 2021-02-03 23:57 | disposition home or self-care (01) ==
LOC: ER 20:49
PROVIDERS: Physician Assistant
DX: R07.9 Chest pain, unspecified (principal); I50.9 Heart failure, unspecified; I25.2 Old myocardial infarction; Z86.73 Personal history of transient ischemic attack (TIA), and cerebral infarction without residual deficits; Z79.899 Other long term (current) drug therapy; Z87.891 Personal history of nicotine dependence
CPT/HCPCS: 36415; 71046; 80053; 83690; 84484; 85025; 93005; 93010; 99285-25; A9270

== ENCOUNTER 2021-02-04 12:42 | Emergency (ER) | payer OTHER ==
[~2021-02-04] VITALS: Ht 167.6 cm; Wt 99.8 kg
[2021-02-04 13:28] LABS: BASOPHILS ABSOLUTE AUTO 0.05 K/mm3 (0.00-0.23); BASOPHILS PERCENT AUTO 0 % (0-2); EOSINOPHILS ABSOLUTE AUTO 0.03 K/mm3 (0.00-0.68); EOSINOPHILS PERCENT AUTO 0 % (0-6); Hematocrit 46.5 % (33.0-51.0); Hemoglobin 14.5 g/dL (11.5-16.0); IMMATURE GRAN ABSOLUTE AUTO 0.04 K/mm3 (0.00-0.10); IMMATURE GRAN PERCENT AUTO 0 % (0-1); LYMPHOCYTES ABSOLUTE AUTO 1.04 K/mm3 (0.84-5.20); LYMPHOCYTES PERCENT AUTO 9 % (21-46); MONOCYTES ABSOLUTE AUTO 0.63 K/mm3 (0.16-1.47); MONOCYTES PERCENT AUTO 5 % (4-13); Mean Corpuscular HGB Conc 31.2 g/dL (31.5-36.5); Mean Corpuscular Volume 83 fL (80-100); Mean Platelet Volume 10.1 fL (9.1-12.4); NEUTROPHILS ABSOLUTE AUTO 10.37 K/mm3 (1.96-9.15); NEUTROPHILS PERCENT AUTO 85 % (41-73); Platelet Count 243 K/mm3 (150-400); RDW Standard Deviation 48.7 fL (35.1-46.3); Red Blood Cell Count 5.58 M/mm3 (3.80-5.20); White Blood Cell Count 12.16 K/mm3 (4.00-11.30)
[2021-02-04 14:00] LABS: Alanine Aminotransfer (ALT/SGP 24 U/L (12-78); Albumin, Blood 4.1 g/dL (3.4-5.0); Alk Phos 77 U/L (50-136); Anion Gap 7 mmol/L (6-16); Aspartate Aminotrans (AST/SGOT 10 U/L (12-37); Bilirubin, Total 0.6 mg/dL (0.1-1.0); Blood Urea Nitrogen 8 mg/dL (8-24); Bun/Creatinine Ratio 9.6 (12.0-20.0); CO2, Blood 24 mmol/L (21-32); Calcium, Blood 9.5 mg/dL (8.5-10.1); Chloride, Blood 105 mmol/L (98-108); Creatinine, Blood 0.84 mg/dL (0.40-1.00); Globulin, Blood 4.3 g/dL (2.2-4.0); Glomerular Filtration Rate >60 (60-); Glucose, Blood 117 mg/dL (70-99); Potassium, Blood 3.8 mmol/L (3.5-5.5); Sodium, Blood 136 mmol/L (136-145); Total Protein, Blood 8.4 g/dL (6.4-8.2)
== END 2021-02-04 13:30 | disposition left against medical advice (07) ==
LOC: ER 12:42
PROVIDERS: Physician Assistant
DX: R07.9 Chest pain, unspecified (principal); Z53.20 Procedure and treatment not carried out because of patient's decision for unspecified reasons
CPT/HCPCS: 36415; 80053; 83690; 85025; 99283

== ENCOUNTER 2021-03-14 23:47 | Emergency (ER) | payer OTHER ==
[~2021-03-14] VITALS: Ht 167.6 cm; Wt 107.0 kg
[~2021-03-14 23:47] MED LIST changes: +FURO20 PO; -FURO40 PO; -LOSA25 PO
[2021-03-15 00:29] LABS: BASOPHILS ABSOLUTE AUTO 0.04 K/mm3 (0.00-0.23); BASOPHILS PERCENT AUTO 0 % (0-2); EOSINOPHILS ABSOLUTE AUTO 0.11 K/mm3 (0.00-0.68); EOSINOPHILS PERCENT AUTO 1 % (0-6); Hematocrit 42.3 % (33.0-51.0); Hemoglobin 13.1 g/dL (11.5-16.0); IMMATURE GRAN ABSOLUTE AUTO 0.03 K/mm3 (0.00-0.10); IMMATURE GRAN PERCENT AUTO 0 % (0-1); LYMPHOCYTES ABSOLUTE AUTO 1.46 K/mm3 (0.84-5.20); LYMPHOCYTES PERCENT AUTO 14 % (21-46); MONOCYTES ABSOLUTE AUTO 0.54 K/mm3 (0.16-1.47); MONOCYTES PERCENT AUTO 5 % (4-13); Mean Corpuscular HGB 25.8 pg (26.0-34.0); Mean Corpuscular Volume 83 fL (80-100); Mean Platelet Volume 10.1 fL (9.1-12.4); NEUTROPHILS ABSOLUTE AUTO 8.32 K/mm3 (1.96-9.15); NEUTROPHILS PERCENT AUTO 79 % (41-73); Platelet Count 243 K/mm3 (150-400); RDW Coefficient Variation 14.9 % (11.7-14.2); RDW Standard Deviation 45.1 fL (35.1-46.3); Red Blood Cell Count 5.07 M/mm3 (3.80-5.20)
[2021-03-15 00:54] LABS: Troponin I 0.026 ng/mL (0.000-0.040)
[2021-03-15 00:55] LABS: Albumin, Blood 3.6 g/dL (3.4-5.0); Albumin/Globulin Ratio 0.9 (0.8-1.8); Bilirubin, Total 0.3 mg/dL (0.1-1.0); Bun/Creatinine Ratio 11.4 (12.0-20.0); Calcium, Blood 8.6 mg/dL (8.5-10.1); Creatinine, Blood 1.14 mg/dL (0.40-1.00); Potassium, Blood 3.9 mmol/L (3.5-5.5); Total Protein, Blood 7.6 g/dL (6.4-8.2)
[2021-03-15] MEDS ORDERED: AMOCLA875 PO (02:00)
[2021-03-15] MEDS ORDERED: CLIN300 PO (02:00)
== END 2021-03-15 04:12 | disposition home or self-care (01) ==
LOC: ER 23:47
PROVIDERS: Emergency Medicine
DX: R07.9 Chest pain, unspecified (principal); R60.0 Localized edema; I50.9 Heart failure, unspecified; Z87.891 Personal history of nicotine dependence; Z79.899 Other long term (current) drug therapy
CPT/HCPCS: 36415; 71045; 80053; 84484; 85025; 93005; 93010; 94640; 99285-25; A9270

== ENCOUNTER 2021-04-03 17:40 | Observation (INO) | payer OTHER ==
[~2021-04-03] VITALS: Ht 167.6 cm; Wt 103.4 kg
[~2021-04-03 17:40] MED LIST changes: +AMOCLA875 PO; +CLIN300 PO
[2021-04-03 18:13] LABS: BASOPHILS ABSOLUTE AUTO 0.04 K/mm3 (0.00-0.23); BASOPHILS PERCENT AUTO 0 % (0-2); EOSINOPHILS PERCENT AUTO 2 % (0-6); Hematocrit 46.1 % (33.0-51.0); Hemoglobin 14.4 g/dL (11.5-16.0); IMMATURE GRAN ABSOLUTE AUTO 0.03 K/mm3 (0.00-0.10); IMMATURE GRAN PERCENT AUTO 0 % (0-1); LYMPHOCYTES PERCENT AUTO 15 % (21-46); MONOCYTES PERCENT AUTO 9 % (4-13); Mean Corpuscular HGB 25.8 pg (26.0-34.0); Mean Corpuscular HGB Conc 31.2 g/dL (31.5-36.5); Mean Corpuscular Volume 83 fL (80-100); Mean Platelet Volume 9.9 fL (9.1-12.4); NEUTROPHILS ABSOLUTE AUTO 7.22 K/mm3 (1.96-9.15); NEUTROPHILS PERCENT AUTO 73 % (41-73); Platelet Count 250 K/mm3 (150-400); RDW Coefficient Variation 15.3 % (11.7-14.2); RDW Standard Deviation 45.7 fL (35.1-46.3); Red Blood Cell Count 5.59 M/mm3 (3.80-5.20); White Blood Cell Count 9.89 K/mm3 (4.00-11.30)
[2021-04-03 18:42] LABS: Albumin/Globulin Ratio 0.9 (0.8-1.8); Bilirubin, Total 0.5 mg/dL (0.1-1.0); Calcium, Blood 9.5 mg/dL (8.5-10.1); Creatinine, Blood 1.11 mg/dL (0.40-1.00); Globulin, Blood 4.3 g/dL (2.2-4.0); Potassium, Blood 3.8 mmol/L (3.5-5.5); Total Protein, Blood 8.3 g/dL (6.4-8.2)
[2021-04-03 19:33] LABS: International Normalized Ratio 1.01; Prothrombin Time Results 10.9 Sec (9.7-11.5)
[2021-04-03] MEDS ORDERED: LAMOTRIGINE100 M1 PO (19:47)
[2021-04-03] MEDS ORDERED: OXYCODONE-ACET1 EAC2 PO (19:47)
[2021-04-03] MEDS ORDERED: Ativan1 MG PO (19:47)
[2021-04-03] MEDS ORDERED: OXYC10TA19 PO (21:39)
[2021-04-03] MEDS ORDERED: EZET10 PO (21:40)
[2021-04-03] MEDS ORDERED: CARV25 PO (21:41)
[2021-04-03] MEDS ORDERED: Isosorbide Mono30 MG PO (21:42)
[2021-04-03] MEDS ORDERED: NITR.4SL SL (21:42)
[2021-04-03 22:29] LABS: SARS-Cov-2 (COVID-19) PCR, MMC NEGATIVE (NEGATIVE)
--- NOTE | 2021-04-04 05:58 | NUR ---
SUMMARY PT ARRIVED TO FLOOR IN DISCOMFORT. PT HAS NOTED LEFT SIDE WEAKNESS. NO FACIAL DROOP NOTED. PT PRIMARY CONCERN IS ONGOING HEADACHE. PT HAS BEEN GIVEN PAIN MED ORDERED. PT DENIES RELIEF. PT REPORTS HEADACHE REMAINS 05/25. PT DOES NOT APPEAR TO BE IN DISTRESS. PT CURRENTLY AWAKE WATCHING TV. CALL LIGHT IN REACH.
--- NOTE | 2021-04-04 17:21 | NUR ---
SHIFT SUMMARY PATIENT ALERT AND ORIENTED THROUGHOUT THIS SHIFT. PATIENT WITH L SIDED WEAKNESS. PATIENT MEDICATED THROUGHOUT THIS SHIFT FOR HEADACHE 10/10 PAIN. PATIENT MEDICATED EARLY THIS AFTERNOON FOR ANXIETY PRIOR TO MRI. PATIENT BACK FROM MRI AND LYING IN THE BED THROUGHOUT THE REST OF THE SHIFT.
[2021-04-05] MEDS ORDERED: VERAPAMIL PO (12:19)
[2021-04-05] MEDS ORDERED: PERCOCET 10-321 EAC1 PO (12:22)
== END 2021-04-05 14:35 | disposition home or self-care (01) ==
LOC: ER 17:40 → MEDS 17:41
PROVIDERS: Physician Assistant; ADMIT Hospitalist
DX: I63.9 Cerebral infarction, unspecified (principal); G81.94 Hemiplegia, unspecified affecting left nondominant side; R29.810 Facial weakness; I25.2 Old myocardial infarction; I25.10 Atherosclerotic heart disease of native coronary artery without angina pectoris; I11.0 Hypertensive heart disease with heart failure; I50.22 Chronic systolic (congestive) heart failure; E66.9 Obesity, unspecified; G43.909 Migraine, unspecified, not intractable, without status migrainosus; G89.29 Other chronic pain; Z79.02 Long term (current) use of antithrombotics/antiplatelets; Z79.82 Long term (current) use of aspirin; Z86.73 Personal history of transient ischemic attack (TIA), and cerebral infarction without residual deficits; Z68.36 Body mass index [BMI] 36.0-36.9, adult; Z95.1 Presence of aortocoronary bypass graft; Z95.5 Presence of coronary angioplasty implant and graft; Z87.891 Personal history of nicotine dependence; Z95.2 Presence of prosthetic heart valve; Z20.822 Contact with and (suspected) exposure to COVID-19; Z79.891 Long term (current) use of opiate analgesic; Z88.8 Allergy status to other drugs, medicaments and biological substances; Z88.0 Allergy status to penicillin; Z88.6 Allergy status to analgesic agent; Z88.5 Allergy status to narcotic agent; Z91.018 Allergy to other foods
CPT/HCPCS: 36415; 70450; 70496; 70551; 80053; 82947; 85025; 85610; 85730; 93005; 93010; 96374; 96375; 99285-25; A9270; G0378; J1170; J2060; Q9967; U0004

== ENCOUNTER 2021-06-22 17:27 | Observation (INO) | payer OTHER ==
[~2021-06-22] VITALS: Ht 167.6 cm; Wt 101.8 kg
[~2021-06-22 17:27] MED LIST changes: +EZET10 PO; +Isosorbide Mono30 MG PO; +LAMOTRIGINE100 M1 PO; +OXYC10TA19 PO; +PERCOCET 10-321 EAC1 PO; +VERAPAMIL PO
[2021-06-22 18:01] LABS: BASOPHILS ABSOLUTE AUTO 0.05 K/mm3 (0.00-0.23); BASOPHILS PERCENT AUTO 1 % (0-2); EOSINOPHILS ABSOLUTE AUTO 0.09 K/mm3 (0.00-0.68); EOSINOPHILS PERCENT AUTO 1 % (0-6); Hematocrit 44.8 % (33.0-51.0); Hemoglobin 13.9 g/dL (11.5-16.0); IMMATURE GRAN ABSOLUTE AUTO 0.02 K/mm3 (0.00-0.10); IMMATURE GRAN PERCENT AUTO 0 % (0-1); LYMPHOCYTES ABSOLUTE AUTO 1.48 K/mm3 (0.84-5.20); LYMPHOCYTES PERCENT AUTO 14 % (21-46); MONOCYTES ABSOLUTE AUTO 0.69 K/mm3 (0.16-1.47); MONOCYTES PERCENT AUTO 7 % (4-13); Mean Corpuscular HGB 25.1 pg (26.0-34.0); Mean Corpuscular Volume 81 fL (80-100); Mean Platelet Volume 10.6 fL (9.1-12.4); NEUTROPHILS ABSOLUTE AUTO 8.13 K/mm3 (1.96-9.15); NEUTROPHILS PERCENT AUTO 78 % (41-73); Platelet Count 276 K/mm3 (150-400); RDW Coefficient Variation 15.1 % (11.7-14.2); RDW Standard Deviation 45.2 fL (35.1-46.3); Red Blood Cell Count 5.54 M/mm3 (3.80-5.20); White Blood Cell Count 10.46 K/mm3 (4.00-11.30)
[2021-06-22 18:30] LABS: Alanine Aminotransfer (ALT/SGP 20 U/L (12-78); Albumin, Blood 3.9 g/dL (3.4-5.0); Albumin/Globulin Ratio 0.9 (0.8-1.8); Alk Phos 79 U/L (50-136); Anion Gap 6 mmol/L (6-16); Aspartate Aminotrans (AST/SGOT 15 U/L (12-37); Bilirubin, Total 0.5 mg/dL (0.1-1.0); Blood Urea Nitrogen 13 mg/dL (8-24); Bun/Creatinine Ratio 11.9 (12.0-20.0); CO2, Blood 28 mmol/L (21-32); Calcium, Blood 9.6 mg/dL (8.5-10.1); Chloride, Blood 103 mmol/L (98-108); Creatinine, Blood 1.09 mg/dL (0.40-1.00); Globulin, Blood 4.3 g/dL (2.2-4.0); Glomerular Filtration Rate 56 (60-); Glucose, Blood 94 mg/dL (70-99); Potassium, Blood 3.8 mmol/L (3.5-5.5); Sodium, Blood 137 mmol/L (136-145); Total Protein, Blood 8.2 g/dL (6.4-8.2); Troponin I <0.015 ng/mL (0.000-0.040)
[2021-06-22 19:56] LABS: Anti-Xa UFH, PHA Monitoring <0.10 IU/mL; International Normalized Ratio 1.06; Prothrombin Time Results 11.1 Sec (9.7-11.5)
[2021-06-22 22:20] LABS: CHOL/HDL RATIO 4.2; Cholesterol 194 mg/dL (50-200); HDL Cholesterol 46 mg/dL (>39); LDL/HDL RATIO 2.6; Low Density Lipoprotein Chol 122 mg/dL (0-110); Triglycerides 132 mg/dL (30-140); Very Low Density Lipoprot Chol 26 mg/dL (6-28)
[2021-06-23 01:40] LABS: SARS-Cov-2 (COVID-19) PCR, MMC NEGATIVE (NEGATIVE)
[2021-06-23] MEDS ORDERED: OXYC10TA19 PO (04:13)
[2021-06-23 04:16] LABS: BASOPHILS ABSOLUTE AUTO 0.07 K/mm3 (0.00-0.23); BASOPHILS PERCENT AUTO 1 % (0-2); EOSINOPHILS ABSOLUTE AUTO 0.21 K/mm3 (0.00-0.68); EOSINOPHILS PERCENT AUTO 2 % (0-6); Hematocrit 40.7 % (33.0-51.0); Hemoglobin 12.6 g/dL (11.5-16.0); IMMATURE GRAN ABSOLUTE AUTO 0.03 K/mm3 (0.00-0.10); IMMATURE GRAN PERCENT AUTO 0 % (0-1); LYMPHOCYTES ABSOLUTE AUTO 2.84 K/mm3 (0.84-5.20); LYMPHOCYTES PERCENT AUTO 31 % (21-46); MONOCYTES PERCENT AUTO 10 % (4-13); Mean Corpuscular HGB 25.2 pg (26.0-34.0); Mean Corpuscular Volume 81 fL (80-100); Mean Platelet Volume 10.5 fL (9.1-12.4); NEUTROPHILS ABSOLUTE AUTO 5.15 K/mm3 (1.96-9.15); NEUTROPHILS PERCENT AUTO 56 % (41-73); Platelet Count 243 K/mm3 (150-400); RDW Coefficient Variation 15.3 % (11.7-14.2); RDW Standard Deviation 45.5 fL (35.1-46.3)
[2021-06-23 04:42] LABS: Bun/Creatinine Ratio 11.4 (12.0-20.0); Calcium, Blood 9.1 mg/dL (8.5-10.1); Creatinine, Blood 1.05 mg/dL (0.40-1.00); Potassium, Blood 3.3 mmol/L (3.5-5.5)
--- NOTE | 2021-06-23 05:29 | NUR ---
HEPARIN WEIGHT ADJUSTED PER PHARMACY ALONG WITH HEPARIN BOLUS.
--- NOTE | 2021-06-23 05:39 | NUR ---
0338 PATIENT ARRIVED TO ICU 1 VIA GURNEY, TRANSFER TO BED USING SLIDER SHEET AND PLACED ON ICU MONITORS. PATIENT CONTINUES TO HAVE 8/10 BROOKS AND 10/10 CHEST PAIN, VERBALIZED INCREASED PAIN WITH DEEP BREATH, DESCRIBING STABBING PAIN FROM MID CHEST RADIATING TO LEFT SHOULDER AND ARM, VERBALIZED THAT LEFT ARM HEAVY ALONG WITH LEFT LEG FEELING HEAVY. ABLE TO USE CELL PHONE AND REPOSITION SELF IN BED WITHOUT DIFFICULTY. PATIENT MEDICATED WITH MORPHINE AND OXYCODONE FOR PAIN. AT 0450 ABLE TO AMBULATE TO TOILET AND ABLE TO PLACE OWN TAMPON. PATIENT HAD SLIGHT DRAG TO LEFT LEG WHILE AMBULATING. CONTINUES TO HAVE NO RELIEF OF PAIN. EXPLAINED TO PATIENT WILL NEED TO USE BSC WHILE HAVING ACTIVE PAIN, PATIENT VERBALIZED UNDERSTANDING.
--- NOTE | 2021-06-23 05:54 | NUR ---
DOCTOR BRENDAN GIVEN UPDATE AND NOTIFIED OF CONTINUED C/O 10/10 CHEST PAIN. ATIVAN ORDER OBTAINED
--- NOTE | 2021-06-23 06:57 | NUR ---
PATIENT RESTING IN BED CONTINUES TO HAVE 10/10 CHEST PAIN AND 10/10 BROOKS BP 161/88 HR 75 SINUS. JOAQUIN, LEFT ARM AND LEG CONTINUE TO FEEL HEAVY. ATTEMPT TO CALL DOCTOR BRENDAN.
--- NOTE | 2021-06-23 08:05 | NUR ---
AM NOTE.... ASSUMED CARE OF PT AT 0700. PT IS A&Ox4 ADMITTED FOR CHEST PAIN. UPON ASSESSMENT THE PT WAS SOUND ASLEEP WHEN THIS RN ENTERED THE ROOM. ONCE AWAKE THE PT C/O OF 10/10 CHEST PAIN AND HEADACHE ASKING FOR PAIN MEDICATIONS. THE PT IS IN SR IN THE 70'S WITH A STABLE BP A LITTLE ON THE HYPERTENSIVE SIDE W/SBPs IN THE 160'S-170'S. PT IS ON RA WITH O2 SATS >95%, L/S COARSE IN THE UPPER LOBES. BT PRESENT AND NORMOACTIVE, ABD IS SOFT AND NONTENDER TO PALP. NEURO: THE PT STARTED C/O OF "BLURRY VISION" IN BOTH EYES TO THIS RN, THE PT ALSO STARTED TO C/O OF "TINGLING" TO THE LEFT SIDE OF HER MOUTH AND LIPS, NO FACIAL DROOP NOTED, PT'S SMILE IS EQUAL. THE PTS COOK TACO ARE MORE WEAK ON THE LEFT THAN THE RIGHT, THE PT'S LEFT ARM IS MORE WEAK THAN THE RIGHT. THE PT'S LEFT LEG IS ALSO MORE WEAK THAN THE RIGHT. DR. BALDWIN AT THE BEDSIDE FOR ASSESSMENT, THERE ARE NO PLANS TO TAKE THE PT TO THE MANAGER SYSTEM, THE HEPARIN GTT WAS D/C'd PER DR. BALDWIN'S VERBAL ORDER TO THIS RN. CALL LIGHT IN REACH WILL CONTINUE TO MONITOR.
--- NOTE | 2021-06-23 10:47 | NUR ---
echocardiogram complete
--- NOTE | 2021-06-23 13:41 | NUR ---
PT UPDATE.... THIS RN HAS NOTED THAT THE PT HAS BEEN GETTING UP AND WALKING ACROSS THE ROOM TO USE THE BSC WITHOUT ANY ASSISTANCE FROM STAFF, THE PT HAD BEEN TOLD BY THIS RN TO CALL STAFF TO HELP WITH ADLs AND TOILETING D/T THE PT'S REPORTED LEFT SIDED WEAKNESS. BED ALARM IS ON WILL CONTINUE TO MONITOR.
[2021-06-23] MEDS ORDERED: Isosorbide Mono30 MG PO (16:36)
[2021-06-23] MEDS ORDERED: PANT20 PO (16:37)
--- NOTE | 2021-06-23 16:48 | NUR ---
PT D/C HOME... PT D/C'd HOME AFTER MRI WAS NEGATIVE FOR SIGNS OF STROKE. ALL OF PT'S BELONGINGS PACKED AND SENT WITH THE PT. THE PT REFUSED A W/C ESCORT OUT OF THE BUILDING AND WALKED TO THE DOOR BY THIS RN. NEW MEDICATIONS WERE FAXED TO THE [facility] [place] PER THE PT'S REQUEST.
== END 2021-06-23 16:40 | disposition home or self-care (01) ==
LOC: ER 17:27 → ERHOLD 17:28 → ICUE 17:28
PROVIDERS: Emergency Medicine; Physician Assistant; ADMIT Family Medicine
DX: I25.110 Atherosclerotic heart disease of native coronary artery with unstable angina pectoris (principal); I63.81 Other cerebral infarction due to occlusion or stenosis of small artery; G83.14 Monoplegia of lower limb affecting left nondominant side; I05.0 Rheumatic mitral stenosis; I13.0 Hypertensive heart and chronic kidney disease with heart failure and stage 1 through stage 4 chronic kidney disease, or unspecified chronic kidney disease; I50.33 Acute on chronic diastolic (congestive) heart failure; N18.30 Chronic kidney disease, stage 3 unspecified; E78.5 Hyperlipidemia, unspecified; I25.2 Old myocardial infarction; G89.29 Other chronic pain; E66.9 Obesity, unspecified; Z68.36 Body mass index [BMI] 36.0-36.9, adult; Z95.5 Presence of coronary angioplasty implant and graft; Z88.0 Allergy status to penicillin; Z88.8 Allergy status to other drugs, medicaments and biological substances; Z79.82 Long term (current) use of aspirin; Z79.899 Other long term (current) drug therapy; Z20.822 Contact with and (suspected) exposure to COVID-19
CPT/HCPCS: 36415; 70450; 70496; 70498; 70551; 71045; 80048; 80053; 80061; 83880; 84484; 85025; 85520; 85610; 85730; 93005; 93010; 93306; 96365; 96366; 96375; 96376; 97116; 97162; 99285-25; A9270; G0378; J1644; J1940; J2060; J2270; Q9967; U0004

== ENCOUNTER 2021-07-02 00:18 | Emergency (ER) | payer OTHER ==
[~2021-07-02] VITALS: Ht 167.6 cm; Wt 99.8 kg
[~2021-07-02 00:18] MED LIST changes: +PANT20 PO
[2021-07-02 00:59] LABS: BASOPHILS ABSOLUTE AUTO 0.03 K/mm3 (0.00-0.23); BASOPHILS PERCENT AUTO 0 % (0-2); EOSINOPHILS PERCENT AUTO 1 % (0-6); Hematocrit 41.5 % (33.0-51.0); Hemoglobin 12.7 g/dL (11.5-16.0); IMMATURE GRAN ABSOLUTE AUTO 0.08 K/mm3 (0.00-0.10); IMMATURE GRAN PERCENT AUTO 1 % (0-1); LYMPHOCYTES ABSOLUTE AUTO 0.99 K/mm3 (0.84-5.20); LYMPHOCYTES PERCENT AUTO 7 % (21-46); MONOCYTES ABSOLUTE AUTO 1.04 K/mm3 (0.16-1.47); MONOCYTES PERCENT AUTO 7 % (4-13); Mean Corpuscular HGB 25.5 pg (26.0-34.0); Mean Corpuscular HGB Conc 30.6 g/dL (31.5-36.5); Mean Corpuscular Volume 83 fL (80-100); Mean Platelet Volume 11.1 fL (9.1-12.4); NEUTROPHILS ABSOLUTE AUTO 12.39 K/mm3 (1.96-9.15); NEUTROPHILS PERCENT AUTO 84 % (41-73); Platelet Count 227 K/mm3 (150-400); RDW Coefficient Variation 15.5 % (11.7-14.2); RDW Standard Deviation 46.8 fL (35.1-46.3); Red Blood Cell Count 4.98 M/mm3 (3.80-5.20); White Blood Cell Count 14.73 K/mm3 (4.00-11.30)
[2021-07-02 01:19] LABS: Alanine Aminotransfer (ALT/SGP 21 U/L (12-78); Albumin, Blood 3.5 g/dL (3.4-5.0); Albumin/Globulin Ratio 0.9 (0.8-1.8); Alk Phos 72 U/L (50-136); Anion Gap 5 mmol/L (6-16); Aspartate Aminotrans (AST/SGOT 11 U/L (12-37); Bilirubin, Direct 0.1 mg/dL (0.0-0.3); Bilirubin, Indirect 0.3 mg/dL (0.1-0.7); Bilirubin, Total 0.4 mg/dL (0.1-1.0); Blood Urea Nitrogen 15 mg/dL (8-24); Bun/Creatinine Ratio 12.1 (12.0-20.0); CO2, Blood 27 mmol/L (21-32); Calcium, Blood 8.9 mg/dL (8.5-10.1); Chloride, Blood 107 mmol/L (98-108); Creatinine, Blood 1.24 mg/dL (0.40-1.00); Globulin, Blood 4.1 g/dL (2.2-4.0); Glomerular Filtration Rate 48 (60-); Glucose, Blood 109 mg/dL (70-99); Magnesium, Blood 1.9 mg/dL (1.6-2.4); Potassium, Blood 3.7 mmol/L (3.5-5.5); Sodium, Blood 139 mmol/L (136-145); Total Protein, Blood 7.6 g/dL (6.4-8.2); Troponin I <0.015 ng/mL (0.000-0.040)
== END 2021-07-02 01:23 | disposition left against medical advice (07) ==
LOC: ER 00:18
PROVIDERS: Student in an Organized Health Care Education/Training Program
DX: R11.2 Nausea with vomiting, unspecified (principal); D72.829 Elevated white blood cell count, unspecified; R79.89 Other specified abnormal findings of blood chemistry; I50.9 Heart failure, unspecified; I25.2 Old myocardial infarction; Z88.8 Allergy status to other drugs, medicaments and biological substances; Z88.0 Allergy status to penicillin; Z88.5 Allergy status to narcotic agent; Z91.018 Allergy to other foods; Z79.899 Other long term (current) drug therapy; Z79.02 Long term (current) use of antithrombotics/antiplatelets; Z79.82 Long term (current) use of aspirin; Z86.73 Personal history of transient ischemic attack (TIA), and cerebral infarction without residual deficits; Z87.891 Personal history of nicotine dependence
CPT/HCPCS: 80048; 80076; 83690; 83735; 84484; 85025; 93005; 93010; 96374; 99284-25; J2765; J7030

== ENCOUNTER 2021-07-11 13:10 | Inpatient (IN) | payer OTHER ==
[~2021-07-11] VITALS: Ht 167.6 cm; Wt 101.0 kg
[2021-07-11 13:39] LABS: BASOPHILS ABSOLUTE AUTO 0.04 K/mm3 (0.00-0.23); BASOPHILS PERCENT AUTO 0 % (0-2); EOSINOPHILS ABSOLUTE AUTO 0.13 K/mm3 (0.00-0.68); EOSINOPHILS PERCENT AUTO 1 % (0-6); Hemoglobin 12.5 g/dL (11.5-16.0); IMMATURE GRAN ABSOLUTE AUTO 0.02 K/mm3 (0.00-0.10); IMMATURE GRAN PERCENT AUTO 0 % (0-1); LYMPHOCYTES ABSOLUTE AUTO 1.03 K/mm3 (0.84-5.20); LYMPHOCYTES PERCENT AUTO 11 % (21-46); MONOCYTES ABSOLUTE AUTO 0.42 K/mm3 (0.16-1.47); MONOCYTES PERCENT AUTO 5 % (4-13); Mean Corpuscular HGB 25.5 pg (26.0-34.0); Mean Corpuscular HGB Conc 31.3 g/dL (31.5-36.5); Mean Corpuscular Volume 82 fL (80-100); Mean Platelet Volume 10.4 fL (9.1-12.4); NEUTROPHILS ABSOLUTE AUTO 7.45 K/mm3 (1.96-9.15); NEUTROPHILS PERCENT AUTO 82 % (41-73); Platelet Count 223 K/mm3 (150-400); RDW Coefficient Variation 15.7 % (11.7-14.2); RDW Standard Deviation 46.7 fL (35.1-46.3); Red Blood Cell Count 4.91 M/mm3 (3.80-5.20); White Blood Cell Count 9.09 K/mm3 (4.00-11.30)
[2021-07-11 14:01] LABS: Alanine Aminotransfer (ALT/SGP 25 U/L (12-78); Albumin, Blood 3.8 g/dL (3.4-5.0); Albumin/Globulin Ratio 0.9 (0.8-1.8); Alk Phos 71 U/L (50-136); Anion Gap 6 mmol/L (6-16); Aspartate Aminotrans (AST/SGOT 12 U/L (12-37); Bilirubin, Total 0.9 mg/dL (0.1-1.0); Blood Urea Nitrogen 10 mg/dL (8-24); Bun/Creatinine Ratio 9.3 (12.0-20.0); CO2, Blood 23 mmol/L (21-32); Calcium, Blood 9.1 mg/dL (8.5-10.1); Chloride, Blood 108 mmol/L (98-108); Creatinine, Blood 1.08 mg/dL (0.40-1.00); Globulin, Blood 4.2 g/dL (2.2-4.0); Glomerular Filtration Rate 57 (60-); Glucose, Blood 107 mg/dL (70-99); Potassium, Blood 4.2 mmol/L (3.5-5.5); Sodium, Blood 137 mmol/L (136-145); Troponin I <0.015 ng/mL (0.000-0.040)
[2021-07-11] MEDS ORDERED: HYDRA25 PO (14:39)
--- NOTE | 2021-07-11 19:34 | NUR ---
Nat Ji is a 36 year old female with history significant for HTN , CVA, OH , CHF and HLD who is admitted with chest pain and shortness of breath. She initially presented to ER with chest pain and SOB,was given nitro and GI meds without help. Troponin and EKG was normal.She is admitted to room 309 for further and treatment. During a brief admission assesment , she is alert and oriented x4 , c/o chest pain which radiate to left upper arm . Denies any headache, nausea, dizzziness and shortness. She was oriented to room and call light use . Incoming nurse was notified about admission . Continue to monitor.
--- NOTE | 2021-07-11 23:15 | NUR ---
[T C/O DIFFICULTY SLEEPING. REPORTS THAT SHE HAS NOT SLEPT IN 2 DAYS. HOSPITALIST NOTIFIED AND NEW ORDERS RECEIVED.
--- NOTE | 2021-07-11 23:44 | NUR ---
PATIENT OFFERED MELATONIN 10MG PO X 1 DOSE SINCE SHE WAS COMPLAINING OF HAVING DIFFICULTY SLEEPING AND SHE REFUSED, STATING THAT IT WOULD NOT BE EFFECTIVE.
[2021-07-12 04:49] LABS: BASOPHILS ABSOLUTE AUTO 0.04 K/mm3 (0.00-0.23); BASOPHILS PERCENT AUTO 0 % (0-2); EOSINOPHILS ABSOLUTE AUTO 0.17 K/mm3 (0.00-0.68); EOSINOPHILS PERCENT AUTO 2 % (0-6); Hematocrit 36.2 % (33.0-51.0); IMMATURE GRAN ABSOLUTE AUTO 0.03 K/mm3 (0.00-0.10); IMMATURE GRAN PERCENT AUTO 0 % (0-1); LYMPHOCYTES ABSOLUTE AUTO 1.45 K/mm3 (0.84-5.20); LYMPHOCYTES PERCENT AUTO 15 % (21-46); MONOCYTES PERCENT AUTO 8 % (4-13); Mean Corpuscular HGB 25.3 pg (26.0-34.0); Mean Corpuscular HGB Conc 30.4 g/dL (31.5-36.5); Mean Corpuscular Volume 83 fL (80-100); Mean Platelet Volume 11.3 fL (9.1-12.4); NEUTROPHILS ABSOLUTE AUTO 7.06 K/mm3 (1.96-9.15); NEUTROPHILS PERCENT AUTO 74 % (41-73); Platelet Count 189 K/mm3 (150-400); RDW Coefficient Variation 15.9 % (11.7-14.2); RDW Standard Deviation 48.3 fL (35.1-46.3); Red Blood Cell Count 4.35 M/mm3 (3.80-5.20); White Blood Cell Count 9.55 K/mm3 (4.00-11.30)
[2021-07-12 05:31] LABS: Bun/Creatinine Ratio 11.4 (12.0-20.0); Calcium, Blood 8.6 mg/dL (8.5-10.1); Creatinine, Blood 1.23 mg/dL (0.40-1.00); Potassium, Blood 3.7 mmol/L (3.5-5.5); Troponin I 0.02 ng/mL (0.000-0.040)
--- NOTE | 2021-07-12 05:39 | NUR ---
PT C/O CHEST PAIN AND PELVIC PAIN DURING SHIFT, MEDICATED WITH PRN ROXICODONE. HOSPITALIST AWARE OF PT'S PAIN COMPLAINTS, PT'S ADMISSION DX IS CHEST PAIN. TELEMETRY MONITORING CONTINUES, NORMAL SINUS RHYTHM, RATE 60s, VERIFIED WITH [facility]. PT HAD ELEVATED BP EARLIER IN SHIFT, MEDICATED WITH SCHEDULED MEDS PER EMAR; MEDS WERE EFFECTIVE-BP IMPROVED. BED IN LOW POSITION WITH SAFETY PRECAUTIONS MAINTAINED. WILL CONTINUE TO MONITOR.
[2021-07-12 12:13] LABS: Anti-Xa UFH, PHA Monitoring <0.10 IU/mL; International Normalized Ratio 1.06; Prothrombin Time Results 11.1 Sec (9.7-11.5)
--- NOTE | 2021-07-12 12:33 | NUR ---
Telephone report received from VIRGINIA Germani. States that the pt will be brought to ICU 1 in wheelchair. States pt has no current chest pain, as her pain was resolved this morning after a dose of dilaudid. PT is presently getting an Echocardiogram in room 309, and will come to ICU per Dr. Gonzales's request for a NTG drip, pre-angiogram. Marcellus states that the pt ate none of her breakfast, and has been NPO.
--- NOTE | 2021-07-12 13:26 | NUR ---
TRANSFER IN HOUSE NOTE PATIENT TRANSFERRED TO ICU 1, BY THIS RN. REPORT GIVEN TO TALYA COLEMAN. PATIENT WAS MEDICATED PER EMAR FOR PAIN. NO ACUTE EVENTS THIS SHIFT.
--- NOTE | 2021-07-12 14:06 | NUR ---
Pt arrived to ICU 1 at approx 1300, by wheelchair accompanied by VIRGINIA Germain. Pt c/o chest pressure described by her as 9/10. States that she had relief with dilaudid and oxycodone given at 1115 this morning, but that the pain is coming back again. NO diaphoresis, no dyspnea. Noted hypertension. NTG drip started after new IV started, as well as heparin gtt. Pt was given dilaudid IV for pain, offered Tylenol which she declined, saying that Tylenol is always ineffective for her. Scheduled apresoline also given. Lights dimmed in effort to help pt with her headache which started after the NTG gtt was started. Denies relief from her chest pain, states that it is still 9/10.
--- NOTE | 2021-07-12 14:44 | NUR ---
Pt reports chest pain improved to 8/10, but headache is persistent *(assuming that this is from the NGT gtt) at 9/10. Given Percocet for relief at this time.
--- NOTE | 2021-07-12 15:28 | NUR ---
C/O persistent chest pain, also jaw aching. HTN is persistent, despite brief dip to 159 systolic.
--- NOTE | 2021-07-12 15:54 | NUR ---
Dr. Gonzales is here.
--- NOTE | 2021-07-12 16:17 | NUR ---
Dr. Gonzales states pt will be taken for angiogram after the case which is on the table right now. She continues to have chest pain, 8-9/10, unrelieved by NTG, dilaudid, and oxycodone. She is not in visible distress, no diaphoresis, and no dyspnea at rest. spo2 98% on room air. Blood pressure remains elevated. NTG gtt titrated up again.
--- NOTE | 2021-07-12 16:19 | NUR ---
Pt refused her IMDUR; states that she got off of that medication because it made her chest pain worse.
--- NOTE | 2021-07-12 16:53 | NUR ---
States that her headache is unrelieved, and her chest pain sometimes is tolerable at a 7/10, possibly with blood pressures which are trending down.
--- NOTE | 2021-07-12 17:17 | NUR ---
Pt appears to be sleeping, on her right side. Vital signs are steady, blood pressure remains elevated. NTG increased to 40 mcg/min
--- NOTE | 2021-07-12 17:21 | NUR ---
Pt states she took a little nap, states her head feels "like it's going to explode", and that chest pain is 9/10. States that when her chest pain is 8/10 it is tolerable because "for me it's a big difference between 8 and 9". She is lying in the room, lights remain dimmed and she denies nausea, dyspnea, diaphoresis. Blood pressure trending down slowly.
--- NOTE | 2021-07-12 18:00 | NUR ---
Pt states that her pain is really bad and is requesting narcotics for pain relief.
--- NOTE | 2021-07-12 18:17 | NUR ---
States chest pain is "down a notch" to 8/10, tolerable, and that headache is slightly improved to 9/10. She is lying on her left side, eyes closed in dim room, respirations even and unlabored, appears calm, appears relaxed.
--- NOTE | 2021-07-12 18:31 | NUR ---
TAKEN TO label pinker at this time, Paty, RNs attending.
--- NOTE | 2021-07-12 19:57 | NUR ---
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 WILL AWAIT REPORT
--- NOTE | 2021-07-12 21:12 | NUR ---
PT [facility]. PT CURRENTLY HAS FEMSTOP IN PLACE AT 100 MM/HG. HAS GOOD DISTAL CMS CHECKS WELL DOPPLER POST-TIBIAL PULSE, AND PALPABLE PEDAL. PT VERY ANXIOUS AND STATES HER PAIN IS 10/10. SHE IS REQUESTING TO BE INTUBATED, AND SEDATED FOR POST PROCEDURAL RECOVERY. DISCUSSED THAT THIS IS NOT A POSSIBILITY AND WOULD COME WITH RISKS. DID MEDICATE PT WITH 1 MG DILAUDID AND HER SCHEDULED ATIVAN DONE SUBLINGUAL. PT CURRENTLY SNORING THOUGH IS AROUSABLE AND MAINTAINS RESP RATE > 10. WILL CLOSELY MONITOR. PT FROM [facility] AT 2035. WILL DO POST PROCEDURE EKG NEAR 2129 THIS EVENING. WILL REVIEW CHART AND PLAN OF CARE FOR THIS PT.
--- NOTE | 2021-07-13 02:35 | NUR ---
HAVE BEEN ABLE TO REMOVE THE FEMSTOP. SITE GENTLY CLEANED. OPSITE DRESSING PLACED. PT HAS BEEN SOMEWHAT NON COMPLIANT WITH THE RESTRICTIONS FROM HAVING RIGHT GROIN ACCESS X 2. PT HAS BEEN WITH FREQUENT REQUESTS FOR DILAUDID AND HAS BEEN MEDICATED APPROPRIATE TO PRN EMAR. REMAINS WITH GOOD DISTAL CMS CHECKS. PALPABLE PULSES NOTED. PT HAS HAD ONE EMESIS THIS NIGHT. NITRO DRIP AT 45 MCG'S. HAVE BEGUN PROCESS OF WEANING OFF. WILL REPORT OFF TO VIRGINIA CHILD.
--- NOTE | 2021-07-13 02:45 | NUR ---
assumed care after report recieved. resting quietly at this time. right groin site soft, no hematoma or bleeding noted at this time.
--- NOTE | 2021-07-13 06:03 | NUR ---
assessment unchanged, right groin remains soft and no signs of hematoma or bleeding. continues to state uncontrolled pain. rests with eyes after pain meds given
[2021-07-13 06:40] LABS: BASOPHILS ABSOLUTE AUTO 0.04 K/mm3 (0.00-0.23); BASOPHILS PERCENT AUTO 0 % (0-2); EOSINOPHILS ABSOLUTE AUTO 0.06 K/mm3 (0.00-0.68); EOSINOPHILS PERCENT AUTO 1 % (0-6); Hematocrit 33.8 % (33.0-51.0); Hemoglobin 10.5 g/dL (11.5-16.0); IMMATURE GRAN ABSOLUTE AUTO 0.04 K/mm3 (0.00-0.10); IMMATURE GRAN PERCENT AUTO 0 % (0-1); LYMPHOCYTES ABSOLUTE AUTO 1.05 K/mm3 (0.84-5.20); LYMPHOCYTES PERCENT AUTO 8 % (21-46); MONOCYTES ABSOLUTE AUTO 0.93 K/mm3 (0.16-1.47); MONOCYTES PERCENT AUTO 8 % (4-13); Mean Corpuscular HGB 25.5 pg (26.0-34.0); Mean Corpuscular HGB Conc 31.1 g/dL (31.5-36.5); Mean Corpuscular Volume 82 fL (80-100); Mean Platelet Volume 10.8 fL (9.1-12.4); NEUTROPHILS ABSOLUTE AUTO 10.34 K/mm3 (1.96-9.15); NEUTROPHILS PERCENT AUTO 83 % (41-73); Platelet Count 222 K/mm3 (150-400); RDW Standard Deviation 47.9 fL (35.1-46.3); Red Blood Cell Count 4.12 M/mm3 (3.80-5.20); White Blood Cell Count 12.46 K/mm3 (4.00-11.30)
[2021-07-13 07:15] LABS: Albumin, Blood 3.3 g/dL (3.4-5.0); Albumin/Globulin Ratio 1.1 (0.8-1.8); Bilirubin, Total 0.9 mg/dL (0.1-1.0); Bun/Creatinine Ratio 10.1 (12.0-20.0); C-Reactive Protein, High Sens. 7.49 mg/L (0.000-3.000); Calcium, Blood 8.5 mg/dL (8.5-10.1); Creatinine, Blood 1.09 mg/dL (0.40-1.00); Magnesium, Blood 1.9 mg/dL (1.6-2.4); Phosphorus, Blood 2.8 mg/dL (2.5-4.9); Potassium, Blood 3.7 mmol/L (3.5-5.5); Total Protein, Blood 6.3 g/dL (6.4-8.2)
[2021-07-13 07:28] LABS: Troponin I 1.43 ng/mL (0.000-0.040)
--- NOTE | 2021-07-13 20:00 | NUR ---
PT AWAKE, WATCHING TV, CONT W INTERMITTANT CHEST DISCOMFORT WELL L LEG PAIN. R FEMORAL SITE W CL OCCLUSIVE DRSG, SOFT, NO BLEEDING. VSS, MONITOR SHOWS NSR, ON RA. PT IS ABLE TO REPOSITION HERSELF IN BED, DECLINES OFFER TO ASSIST TO TOILET, OR FOR SET UP FOR HS CARE. REQUESTS SANDWICH. WILL MEDICATE PER MAR AND PROVIDE SNACK. CALL LIGHT IN REACH. WILL CONT TO MONITOR.
--- NOTE | 2021-07-13 21:45 | NUR ---
PT CALLED, STATED SHE WAS HAVING AN AXIETY ATTACK. PT IS TEARFUL, BUT ACTUALLY APPEARS CALM BY THIS TIME. NO OTHER REQUESTS, DISCUSSED IF SHE HAS USED ANY HS MEDS FOR SLEEP AID, STATES SHE HAS NOT BEEN ABLE TO TOLERATE THEM. WILL CONT TO MONITOR.
--- NOTE | 2021-07-13 22:30 | NUR ---
KYE DE LA CRUZ AND ONESIMO. PT REQUESTS MARIANA CRACKERS AND MILK, WHICH ARE PROVIDED. CONT TO DENY NEED TO VOID. NO OTHER CHANGES, CALL LIGHT IN REACH. CONT TO MONITOR.
--- NOTE | 2021-07-14 06:40 | NUR ---
PT AWAKE, CO CHEST DISCOMFORT, AND LEG/GROIN PAIN. HAS BEEN MED EVERY 2H W DILAUDID AND ATIVAN, OXYCODONE Q4H. PT HAS BEEN ABLE TO SNACK & DRINKING PEPSI, HAS NOT VOIDED THIS SHIFT AND DENIES URGENCY. VSS. DISCUSSED PLAN TO GO HOME THIS AM. LAB HERE FOR AM DRAW. WILL REPORT TO DAY SHIFT.
[2021-07-14 07:33] LABS: Albumin, Blood 3.1 g/dL (3.4-5.0); Albumin/Globulin Ratio 0.9 (0.8-1.8); Bilirubin, Total 0.5 mg/dL (0.1-1.0); Bun/Creatinine Ratio 12.9 (12.0-20.0); Creatinine, Blood 1.16 mg/dL (0.40-1.00); Globulin, Blood 3.6 g/dL (2.2-4.0); Phosphorus, Blood 3.4 mg/dL (2.5-4.9); Potassium, Blood 3.4 mmol/L (3.5-5.5); Total Protein, Blood 6.7 g/dL (6.4-8.2)
[2021-07-14 08:07] LABS: BASOPHILS ABSOLUTE AUTO 0.03 K/mm3 (0.00-0.23); BASOPHILS PERCENT AUTO 0 % (0-2); EOSINOPHILS ABSOLUTE AUTO 0.29 K/mm3 (0.00-0.68); EOSINOPHILS PERCENT AUTO 3 % (0-6); Hematocrit 35.2 % (33.0-51.0); Hemoglobin 10.7 g/dL (11.5-16.0); IMMATURE GRAN ABSOLUTE AUTO 0.03 K/mm3 (0.00-0.10); IMMATURE GRAN PERCENT AUTO 0 % (0-1); LYMPHOCYTES ABSOLUTE AUTO 1.52 K/mm3 (0.84-5.20); LYMPHOCYTES PERCENT AUTO 15 % (21-46); MONOCYTES ABSOLUTE AUTO 0.81 K/mm3 (0.16-1.47); MONOCYTES PERCENT AUTO 8 % (4-13); Mean Corpuscular HGB 25.2 pg (26.0-34.0); Mean Corpuscular HGB Conc 30.4 g/dL (31.5-36.5); Mean Corpuscular Volume 83 fL (80-100); Mean Platelet Volume 10.9 fL (9.1-12.4); NEUTROPHILS ABSOLUTE AUTO 7.34 K/mm3 (1.96-9.15); NEUTROPHILS PERCENT AUTO 73 % (41-73); Platelet Count 200 K/mm3 (150-400); RDW Coefficient Variation 16.2 % (11.7-14.2); RDW Standard Deviation 49.1 fL (35.1-46.3); Red Blood Cell Count 4.25 M/mm3 (3.80-5.20); White Blood Cell Count 10.02 K/mm3 (4.00-11.30)
[2021-07-14] MEDS ORDERED: TICA90TA PO (08:09)
[2021-07-14] MEDS ORDERED: SENN187 PO (08:10)
[2021-07-14] MEDS ORDERED: ONDA4ODT (08:10)
[2021-07-14] MEDS ORDERED: COLACE100 MG PO (08:11)
[2021-07-14] MEDS ORDERED: Acetaminophen650 M1 (08:11)
--- NOTE | 2021-07-14 11:12 | NUR ---
PT READY FOR DISCHARGE. IV'S REMOVED AND PT TAKEN OUT VIA WHEELCHAIR BY STAFF WITHOUT INCIDENT. DISCHARGE INSTRUCTIONS PROVIDED AND SCRIPTS CALLED INTO RX.
== END 2021-07-14 11:00 | disposition home or self-care (01) | DRG 246 ==
LOC: ER 13:10 → MEDS 13:11 → ICUE 07-12 12:30
PROVIDERS: Family Medicine; Physician Assistant; ADMIT Internal Medicine
PROC: 027136Z Dilation of Coronary Artery, Two Arteries with Three Drug-eluting Intraluminal Devices, Percutaneous Approach (ICD-10-PCS; principal; 2021-07-12)
PROC: 02C03ZZ Extirpation of Matter from Coronary Artery, One Artery, Percutaneous Approach (ICD-10-PCS; 2021-07-12)
PROC: B240ZZ3 Ultrasonography of Single Coronary Artery, Intravascular (ICD-10-PCS; 2021-07-12)
PROC: B2111ZZ Fluoroscopy of Multiple Coronary Arteries using Low Osmolar Contrast (ICD-10-PCS; 2021-07-12)
PROC: B2181ZZ Fluoroscopy of Left Internal Mammary Bypass Graft using Low Osmolar Contrast (ICD-10-PCS; 2021-07-12)
PROC: B2131ZZ Fluoroscopy of Multiple Coronary Artery Bypass Grafts using Low Osmolar Contrast (ICD-10-PCS; 2021-07-12)
DX: I25.110 Atherosclerotic heart disease of native coronary artery with unstable angina pectoris (principal); J96.01 Acute respiratory failure with hypoxia; F11.20 Opioid dependence, uncomplicated; T82.855A Stenosis of coronary artery stent, initial encounter; I16.0 Hypertensive urgency; I11.0 Hypertensive heart disease with heart failure; Z66 Do not resuscitate; I50.9 Heart failure, unspecified; N83.209 Unspecified ovarian cyst, unspecified side; E78.5 Hyperlipidemia, unspecified; G43.909 Migraine, unspecified, not intractable, without status migrainosus; E66.01 Morbid (severe) obesity due to excess calories; Z88.5 Allergy status to narcotic agent; Z91.018 Allergy to other foods; Z88.0 Allergy status to penicillin; Z88.8 Allergy status to other drugs, medicaments and biological substances; I25.2 Old myocardial infarction; Z86.73 Personal history of transient ischemic attack (TIA), and cerebral infarction without residual deficits; Z90.49 Acquired absence of other specified parts of digestive tract; Z88.6 Allergy status to analgesic agent; Z95.5 Presence of coronary angioplasty implant and graft; Z95.1 Presence of aortocoronary bypass graft; Z98.890 Other specified postprocedural states; Z90.721 Acquired absence of ovaries, unilateral; Z98.51 Tubal ligation status; Z87.891 Personal history of nicotine dependence; Z79.82 Long term (current) use of aspirin; Z79.02 Long term (current) use of antithrombotics/antiplatelets; Z79.899 Other long term (current) drug therapy; Y84.8 Other medical procedures as the cause of abnormal reaction of the patient, or of later complication, without mention of misadventure at the time of the procedure; Z68.35 Body mass index [BMI] 35.0-35.9, adult
CPT/HCPCS: 36415; 71046; 71275; 80048; 80053; 82947; 83735; 83880; 84100; 84484; 85025; 85347; 85520; 85610; 85730; 86141; 92978; 93005; 93010; 93308; 93321; 93455; 94760; 96374; 99152; 99153; 99285-25; A9270; C1753; C1757; C1760; C1769; C1874; C1887; C1894; C9604; J0360; J0461; J1170; J1644; J1650; J2060; J2250; J2270; J2997; J3246; J7030; J7050; Q9967

== ENCOUNTER 2021-07-16 15:07 | Emergency (ER) | payer OTHER ==
[~2021-07-16] VITALS: Ht 167.6 cm; Wt 99.8 kg
[~2021-07-16 15:07] MED LIST changes: +Acetaminophen650 M1; +COLACE100 MG PO; +HYDRA25 PO; +ONDA4ODT; +SENN187 PO
[2021-07-16 17:14] LABS: BASOPHILS ABSOLUTE AUTO 0.04 K/mm3 (0.00-0.23); BASOPHILS PERCENT AUTO 0 % (0-2); EOSINOPHILS ABSOLUTE AUTO 0.36 K/mm3 (0.00-0.68); EOSINOPHILS PERCENT AUTO 4 % (0-6); Hemoglobin 12.5 g/dL (11.5-16.0); IMMATURE GRAN ABSOLUTE AUTO 0.03 K/mm3 (0.00-0.10); IMMATURE GRAN PERCENT AUTO 0 % (0-1); LYMPHOCYTES ABSOLUTE AUTO 1.41 K/mm3 (0.84-5.20); LYMPHOCYTES PERCENT AUTO 14 % (21-46); MONOCYTES ABSOLUTE AUTO 0.73 K/mm3 (0.16-1.47); MONOCYTES PERCENT AUTO 7 % (4-13); Mean Corpuscular HGB 25.3 pg (26.0-34.0); Mean Corpuscular HGB Conc 30.5 g/dL (31.5-36.5); Mean Corpuscular Volume 83 fL (80-100); Mean Platelet Volume 11.3 fL (9.1-12.4); NEUTROPHILS ABSOLUTE AUTO 7.59 K/mm3 (1.96-9.15); NEUTROPHILS PERCENT AUTO 75 % (41-73); Platelet Count 272 K/mm3 (150-400); RDW Coefficient Variation 15.9 % (11.7-14.2); RDW Standard Deviation 48.2 fL (35.1-46.3); Red Blood Cell Count 4.95 M/mm3 (3.80-5.20); White Blood Cell Count 10.16 K/mm3 (4.00-11.30)
[2021-07-16 17:30] LABS: C-REACTIVE PROTEIN, EXT RANGE 1.16 mg/dL (0.000-0.300)
[2021-07-16 17:32] LABS: Bun/Creatinine Ratio 11.9 (12.0-20.0); Calcium, Blood 8.8 mg/dL (8.5-10.1); Creatinine, Blood 1.09 mg/dL (0.40-1.00); Potassium, Blood 4.3 mmol/L (3.5-5.5)
[2021-07-16] MEDS ORDERED: CEFU500T30 PO (18:28)
== END 2021-07-16 19:12 | disposition home or self-care (01) ==
LOC: ER 15:07
PROVIDERS: Student in an Organized Health Care Education/Training Program
DX: T81.49XA Infection following a procedure, other surgical site, initial encounter (principal); L03.314 Cellulitis of groin; I25.10 Atherosclerotic heart disease of native coronary artery without angina pectoris; I11.0 Hypertensive heart disease with heart failure; I50.9 Heart failure, unspecified; E78.5 Hyperlipidemia, unspecified; G40.909 Epilepsy, unspecified, not intractable, without status epilepticus; I25.2 Old myocardial infarction; Z88.8 Allergy status to other drugs, medicaments and biological substances; Z88.0 Allergy status to penicillin; Z88.5 Allergy status to narcotic agent; Z91.018 Allergy to other foods; Z79.899 Other long term (current) drug therapy; Z95.5 Presence of coronary angioplasty implant and graft; Z86.73 Personal history of transient ischemic attack (TIA), and cerebral infarction without residual deficits; Z87.891 Personal history of nicotine dependence; Y83.8 Other surgical procedures as the cause of abnormal reaction of the patient, or of later complication, without mention of misadventure at the time of the procedure
CPT/HCPCS: 36415; 72191; 80048; 85025; 85651; 86140; 96365; 96375; 99284-25; A9270; J0696; J2270; Q9967

== ENCOUNTER 2021-08-07 22:29 | Inpatient (IN) | payer OTHER ==
[~2021-08-07] VITALS: Ht 167.6 cm; Wt 104.8 kg
[~2021-08-07 22:29] MED LIST changes: +CEFU500T30 PO
[2021-08-07 22:45] LABS: Calcium, Ionized (POC) 1.18 mmol/L (1.10-1.46); Chloride (POC) 105 mmol/L (98-108); Glucose (ISTAT POC) 138 mg/dL (70-99); Hemoglobin (POC) 13.6 g/dL (12.0-16.0); Potassium (POC) 3.7 mmol/L (3.5-5.5); Sodium (POC) 139 mmol/L (135-148); Total CO2 (POC) 21 mmol/L (21-32)
[2021-08-07 22:57] LABS: BASOPHILS ABSOLUTE AUTO 0.03 K/mm3 (0.00-0.23); BASOPHILS PERCENT AUTO 0 % (0-2); EOSINOPHILS ABSOLUTE AUTO 0.13 K/mm3 (0.00-0.68); EOSINOPHILS PERCENT AUTO 1 % (0-6); Hematocrit 39.4 % (33.0-51.0); IMMATURE GRAN ABSOLUTE AUTO 0.05 K/mm3 (0.00-0.10); IMMATURE GRAN PERCENT AUTO 1 % (0-1); LYMPHOCYTES ABSOLUTE AUTO 1.22 K/mm3 (0.84-5.20); LYMPHOCYTES PERCENT AUTO 13 % (21-46); MONOCYTES ABSOLUTE AUTO 0.51 K/mm3 (0.16-1.47); MONOCYTES PERCENT AUTO 5 % (4-13); Mean Corpuscular HGB 24.7 pg (26.0-34.0); Mean Corpuscular HGB Conc 30.5 g/dL (31.5-36.5); Mean Corpuscular Volume 81 fL (80-100); Mean Platelet Volume 10.1 fL (9.1-12.4); NEUTROPHILS ABSOLUTE AUTO 7.83 K/mm3 (1.96-9.15); NEUTROPHILS PERCENT AUTO 80 % (41-73); Platelet Count 248 K/mm3 (150-400); RDW Coefficient Variation 16.5 % (11.7-14.2); RDW Standard Deviation 47.9 fL (35.1-46.3); Red Blood Cell Count 4.86 M/mm3 (3.80-5.20); White Blood Cell Count 9.77 K/mm3 (4.00-11.30)
[2021-08-07 23:12] LABS: Alanine Aminotransfer (ALT/SGP 19 U/L (12-78); Albumin, Blood 3.7 g/dL (3.4-5.0); Albumin/Globulin Ratio 0.9 (0.8-1.8); Alk Phos 72 U/L (50-136); Anion Gap 7 mmol/L (6-16); Aspartate Aminotrans (AST/SGOT 9 U/L (12-37); Bilirubin, Total 0.5 mg/dL (0.1-1.0); Blood Urea Nitrogen 12 mg/dL (8-24); Bun/Creatinine Ratio 12.1 (12.0-20.0); CHOL/HDL RATIO 4.1; CO2, Blood 23 mmol/L (21-32); CPK Creatine Kinase 44 U/L (26-193); Calcium, Blood 9.3 mg/dL (8.5-10.1); Chloride, Blood 109 mmol/L (98-108); Cholesterol 155 mg/dL (50-200); Creatine Kinase MB 1.4 ng/mL (0.0-3.6); Creatine Kinase MB Index 3.2 (0.0-4.0); Creatinine, Blood 0.99 mg/dL (0.40-1.00); Glomerular Filtration Rate >60 (60-); Glucose, Blood 139 mg/dL (70-99); HDL Cholesterol 38 mg/dL (>39); LDL/HDL RATIO 2.3; Low Density Lipoprotein Chol 88 mg/dL (0-110); Potassium, Blood 3.7 mmol/L (3.5-5.5); Sodium, Blood 139 mmol/L (136-145); Total Protein, Blood 7.7 g/dL (6.4-8.2); Triglycerides 146 mg/dL (30-140); Troponin I <0.015 ng/mL (0.000-0.040); Very Low Density Lipoprot Chol 29 mg/dL (6-28)
[2021-08-07 23:13] LABS: International Normalized Ratio 1.08; Prothrombin Time Results 11.3 Sec (9.7-11.5)
[2021-08-07] MEDS ORDERED: OXYC10TA19 PO (23:23)
[2021-08-07] MEDS ORDERED: HYDR10 PO (23:24)
[2021-08-07] MEDS ORDERED: CLOP75 PO (23:26)
[2021-08-07] MEDS ORDERED: Aspir 8181 MG PO (23:27)
[2021-08-07] MEDS ORDERED: NARCAN4 M1 (23:29)
[2021-08-08 03:05] LABS: Adenovirus Not Detected (NOT DETECT); Bordetella pertussis Not Detected (NOT DETECT); Chlamydophila pneumoniae Not Detected (NOT DETECT); Coronavirus 229E Not Detected (NOT DETECT); Coronavirus HKU1 Not Detected (NOT DETECT); Coronavirus NL63 Not Detected (NOT DETECT); Coronavirus OC43 Not Detected (NOT DETECT); Human Metapneumovirus Not Detected (NOT DETECT); Human Rhinovirus/Enterovirus Not Detected (NOT DETECT); Influenza A/2009-H1 Not Detected (NOT DETECT); Influenza A/H1 Not Detected (NOT DETECT); Influenza A/H3 Not Detected (NOT DETECT); Influenza B Not Detected (NOT DETECT); Mycoplasma pneumoniae Not Detected (NOT DETECT); Parainfluenza Virus 1 Not Detected (NOT DETECT); Parainfluenza Virus 2 Not Detected (NOT DETECT); Parainfluenza Virus 3 Not Detected (NOT DETECT); Parainfluenza Virus 4 Not Detected (NOT DETECT); Respiratory Syncytial Virus Not Detected (NOT DETECT); SARS-Cov-2 (COVID-19), BioFire Not Detected (NOT DETECT)
[2021-08-08 03:21] LABS: BASOPHILS ABSOLUTE AUTO 0.03 K/mm3 (0.00-0.23); BASOPHILS PERCENT AUTO 0 % (0-2); EOSINOPHILS ABSOLUTE AUTO 0.15 K/mm3 (0.00-0.68); EOSINOPHILS PERCENT AUTO 1 % (0-6); Hematocrit 34.3 % (33.0-51.0); Hemoglobin 10.5 g/dL (11.5-16.0); IMMATURE GRAN ABSOLUTE AUTO 0.03 K/mm3 (0.00-0.10); IMMATURE GRAN PERCENT AUTO 0 % (0-1); LYMPHOCYTES ABSOLUTE AUTO 1.63 K/mm3 (0.84-5.20); LYMPHOCYTES PERCENT AUTO 14 % (21-46); MONOCYTES ABSOLUTE AUTO 0.73 K/mm3 (0.16-1.47); MONOCYTES PERCENT AUTO 6 % (4-13); Mean Corpuscular HGB 24.9 pg (26.0-34.0); Mean Corpuscular HGB Conc 30.6 g/dL (31.5-36.5); Mean Corpuscular Volume 82 fL (80-100); Mean Platelet Volume 10.4 fL (9.1-12.4); NEUTROPHILS ABSOLUTE AUTO 9.22 K/mm3 (1.96-9.15); NEUTROPHILS PERCENT AUTO 78 % (41-73); Platelet Count 235 K/mm3 (150-400); RDW Coefficient Variation 16.3 % (11.7-14.2); RDW Standard Deviation 48.3 fL (35.1-46.3); Red Blood Cell Count 4.21 M/mm3 (3.80-5.20); White Blood Cell Count 11.79 K/mm3 (4.00-11.30)
--- NOTE | 2021-08-08 03:22 | NUR ---
PT ARRIVED TO ICU 1 FROM ED AT 0206. PT ABLE TO TRANSFER SELF FROM ED RHENSLEY TO ICU BED WITHOUT DIFFICULTY. PT COMPLAINING OF 10/10 CHEST PAIN AND HEADACHE PAIN. SBP 180'S ON NITRO GTT AT 100 MCG/KG, GOAL IS SBP 150-160. PT ALERT AND ORIENTED, ANXIOUS ABOUT BEING IN HOSPITAL. LUNG CLEAR WITH DIM BASES, SPO2 >90% ON RA. ACTIVE BOWEL TONES, DENIES PAIN WITH PALPATION. UP TO BSC STEADY ON FEET, DENIES SOB WHILE OUT OF BED. PT DENIES NEEDS AT THIS TIME, CALL LIGHT WITHIN REACH.
[2021-08-08 03:42] LABS: Alanine Aminotransfer (ALT/SGP 15 U/L (12-78); Albumin, Blood 3.2 g/dL (3.4-5.0); Albumin/Globulin Ratio 0.9 (0.8-1.8); Alk Phos 64 U/L (50-136); Anion Gap 7 mmol/L (6-16); Aspartate Aminotrans (AST/SGOT 6 U/L (12-37); Bilirubin, Total 0.5 mg/dL (0.1-1.0); Blood Urea Nitrogen 11 mg/dL (8-24); Bun/Creatinine Ratio 11.4 (12.0-20.0); CO2, Blood 22 mmol/L (21-32); Calcium, Blood 8.7 mg/dL (8.5-10.1); Chloride, Blood 109 mmol/L (98-108); Creatinine, Blood 0.97 mg/dL (0.40-1.00); Globulin, Blood 3.7 g/dL (2.2-4.0); Glomerular Filtration Rate >60 (60-); Glucose, Blood 103 mg/dL (70-99); Potassium, Blood 3.8 mmol/L (3.5-5.5); Sodium, Blood 138 mmol/L (136-145); Total Protein, Blood 6.9 g/dL (6.4-8.2); Troponin I <0.015 ng/mL (0.000-0.040)
--- NOTE | 2021-08-08 06:36 | NUR ---
SHIFT SUMMARY PT CONTINUES HAVING 10/10 CHEST AND HEADACHE PAIN, PRN DILAUDID AND SCHEDULED PAIN MEDS GIVEN. PT STATES MINIMAL RELIEF WITH PAIN MEDS. CURRENTLY SLEEPING, DOES NOT APPEAR IN ANY DISTRESS. NITRO CURRENTLY INFUSING AT 6 MCG/MIN WITH SBP 150-160'S. PT ON RA WITH SPO2 >90%, DOES STATE SHE IS HAVING SOB WHEN AWAKE.
--- NOTE | 2021-08-08 08:59 | NUR ---
MAKES NEEDS KNOWN, NO DISTRESS, C/O OF H/A, MEDICATED WITH SCHEDULED PERCOCET, DR TURNER ROUNDED, OK TO FEED PATIENT, DR TURNER TO REVIEW PATIENTS CHART AND REPORT BACK TO PATIENT LATER TODAY, POSSIBLE ANGIO IF NEEDED, PATIENT REPORTED UNDERSTANDING. CALL LIGHT WITH IN REACH, WCTM
--- NOTE | 2021-08-08 18:08 | NUR ---
alert and oriented x4, uses call light for bsc stand by assist, ate lunch and dinner, denies n/v, left jaw neck and arm pain worse when up to the bsc, medicated with scheduled percocets and dilaudid, echo ordered. sbp 140-190, heart rate 80, nitro gtt infusing, titrate to keep sbp 160 and below. started will relay to pm rn, gagetm
--- NOTE | 2021-08-08 20:26 | NUR ---
ASSUMED CARE OF PT AT 1900, REPORT RECEIVED FROM LISA COLEMAN. PT RESTING IN BED, EASILY AROUSES TO VERBAL STIMULI. ALERT AND ORIENTED, FOLLOWS DIRECTIONS. NITRO INFUSING AT 45 MCG/MIN. PT COMPLAINING OF 10/10 HEADACHE AND CHEST PAIN, STATES SHE DOES GET BRIEF RELIEF FROM PAIN MEDICATIONS. HR 60'S SINUS ON MONITOR, SBP 140-160'S. CURRENTLY ON RA SPO2 >90%, DENIES SOB AT THIS TIME. ABLE TO MAKE NEEDS KNOWN. CALL LIGHT WITHIN REACH.
--- NOTE | 2021-08-09 06:22 | NUR ---
SHIFT SUMMARY PT REMAINS ALERT AND ORIENTED, FOLLOWS DIRECTIONS. CONTINUES COMPLAINING OF 8-10/10 CHEST AND HEADACHE PAIN, SOME SHORT-TERM RELIEF FROM PAIN MEDICATIONS. NITRO INFUSION TITRATED OFF AT 0115. SBP 120-140'S, HR 50-60'S SINUS ON MONITOR, SPO2 >90% ON RA. UP TO BSC STANDBY ASSIST, COMPLAINS OF SOB WITH EXERTION. CALL LIGHT REMAINS WITHIN REACH, PT ABLE TO MAKE NEEDS KNOWN.
--- NOTE | 2021-08-10 05:08 | NUR ---
PT NOTED AWAKE MOST OF THIS SHIFT, STATES THAT SHE HAS BEEN UNABLE TO SLEEP SECONDARY TO PAIN, DENIES CHANGES TO PAIN THROUGHOUT NOC OTHER THAN SLIGHT RELIEF FOLLOWING PAIN MEDICATIONS. LAST POST PAIN SCORE SHE STATED THAT PAIN WAS "ALL RIGHT" AND "NOT TOO BAD" NUMBER RATING THAT WAS PROVIDED WAS 8/10. OTHERWISE NO CHANGES THROUGHOUT NOC. SHE CONTINUES TO MOVE AND REPOSITION SELF WELL AND GET UP TO BSC WITH STEADY GAIT.
[2021-08-10 07:37] LABS: Bun/Creatinine Ratio 15.2 (12.0-20.0); Creatinine, Blood 1.05 mg/dL (0.40-1.00); Potassium, Blood 4.4 mmol/L (3.5-5.5)
--- NOTE | 2021-08-10 08:54 | NUR ---
INITIAL ASSESSMENT PATIENT ALERT AND ORIENTED X 4, AFEBRILE. INDEPENDENT IN ROOM. PATIENT DENIES FEELING LIGHTHEADED OR DIZZY WHEN AMBULATING IN ROOM. PATIENT STATES SHE STILL HAS CHEST PAIN. PAIN MEDS BEING GIVEN ORDERED. LUNGS CLEAR IN UPPER LOBES AND DIMINISHED IN LOWER LOBES. PATIENT SATTING 90% AND GREATER ON RA. PATIENT STATES THAT SHE DOES FEEL SOB AT TIMES. PATIENT IN SINUS ADDIS, HR IN THE 50S. SBP IN THE 160S. GI WNL. NPO AT MIDNIGHT FOR LABORER LANDSCAPE THIS AM. WNL. SKIN APPEARS C/D/I. IV FLUSHED AND SALINE LOCKED. PATIENT HAS BEEN TAKEN TO LABORER LANDSCAPE.
--- NOTE | 2021-08-10 09:50 | NUR ---
PATIENT BACK FROM [facility]. R GROIN SITE STABLE; NO BLEEDING, BRUISING, HEMATOMA NOTED. ANGIOSEAL AND TEGADERM CHG IN PLACE. PATIENT EDUCATED ON MOVEMENT RESTRICTIONS.
--- NOTE | 2021-08-10 12:40 | NUR ---
PATIENT AFEBRILE. PATIENT RECEIVING PRN PAIN MEDS FOR COMPLAINTS OF PAIN TO R LEG AND SIDE FROM GROIN CIGARETTE PAPER TESTER ACCESS. HR IN THE 60S. SBP IN THE 140S. R GROIN SITE REMAINS STABLE; NO BLEEDING, BRUISING, HEMATOMA NOTED. NO OTHER ACUTE CHANGES TO NOTE ON AT THIS TIME. WILL CONTINUE TO MONITOR.
--- NOTE | 2021-08-10 15:23 | NUR ---
DISCHARGE/ SHIFT SUMMARY PATIENT REMAINED ALERT AND ORIENTED T/O SHIFT. PATIENT REMAINED AFEBRILE. PATIENT CONTINUED TO ASK FOR PAIN MEDICATIONS FOR CHEST PAIN AND R LEG AND SIDE PAIN FROM R GROIN COLLEGE SPORTS COACH ACCESS. PATIENT UP, AMBULATING WELL AROUND ROOM 4 HOURS AFTER PROCEDURE. NO COMPLAINTS OF FEELING DIZZY OR WEAK. PATIETN REMAINED SATTING 90% AND GREATER ON RA. PATIENT REMAINED IN SB TO SRK, HR 50S TO 70S. SBP 1-TEENS TO 160S. NO BM THIS SHIFT. PATIENT ATE LUNCH. WNL. R GROIN SITE REMAINS WNL- NO BLEEDING, BRUISING, HEMATOMA NOTED. IV REMOVED. PATIENT HAD NO INTERVENTIONS WHEN TAKEN TO COLLEGE SPORTS COACH. PATIENT WALKED OUT BY HEAD LOADER TO FAMILY OUTSIDE OF ADMITTING BUILDING.
== END 2021-08-10 15:22 | disposition home or self-care (01) | DRG 287 ==
LOC: ER 22:29 → ICUE 08-08 00:45 → ICUW 08-08 00:45 → ICUE 08-08 02:08
PROVIDERS: Family Medicine; Student in an Organized Health Care Education/Training Program; ADMIT Internal Medicine
PROC: 4A023N7 Measurement of Cardiac Sampling and Pressure, Left Heart, Percutaneous Approach (ICD-10-PCS; principal; 2021-08-10)
PROC: B2181ZZ Fluoroscopy of Left Internal Mammary Bypass Graft using Low Osmolar Contrast (ICD-10-PCS; 2021-08-10)
PROC: B2131ZZ Fluoroscopy of Multiple Coronary Artery Bypass Grafts using Low Osmolar Contrast (ICD-10-PCS; 2021-08-10)
PROC: B2111ZZ Fluoroscopy of Multiple Coronary Arteries using Low Osmolar Contrast (ICD-10-PCS; 2021-08-10)
DX: I25.110 Atherosclerotic heart disease of native coronary artery with unstable angina pectoris (principal); F11.20 Opioid dependence, uncomplicated; I50.22 Chronic systolic (congestive) heart failure; I16.0 Hypertensive urgency; G89.29 Other chronic pain; I11.0 Hypertensive heart disease with heart failure; E78.5 Hyperlipidemia, unspecified; Z20.822 Contact with and (suspected) exposure to COVID-19; K21.9 Gastro-esophageal reflux disease without esophagitis; G43.909 Migraine, unspecified, not intractable, without status migrainosus; E66.01 Morbid (severe) obesity due to excess calories; Z95.1 Presence of aortocoronary bypass graft; Z95.5 Presence of coronary angioplasty implant and graft; Z86.73 Personal history of transient ischemic attack (TIA), and cerebral infarction without residual deficits; I25.2 Old myocardial infarction; Z90.49 Acquired absence of other specified parts of digestive tract; Z98.890 Other specified postprocedural states; Z90.721 Acquired absence of ovaries, unilateral; Z87.891 Personal history of nicotine dependence; Z68.35 Body mass index [BMI] 35.0-35.9, adult; Z88.0 Allergy status to penicillin; Z88.5 Allergy status to narcotic agent; Z88.8 Allergy status to other drugs, medicaments and biological substances; Z88.6 Allergy status to analgesic agent; Z91.018 Allergy to other foods; Z79.82 Long term (current) use of aspirin; Z79.899 Other long term (current) drug therapy; Z79.02 Long term (current) use of antithrombotics/antiplatelets; Z28.21 Immunization not carried out because of patient refusal
CPT/HCPCS: 0202U; 36415; 71045; 80047; 80048; 80053; 80061; 82550; 82553; 83735; 83880; 84484; 85014; 85025; 85610; 85730; 86850; 86900; 86901; 93005; 93010; 93306; 93455; 96365; 96366; 96368; 96375; 96376; 99152; 99285-25; A9270; C1760; C1769; C1894; J1170; J1644; J1650; J1790; J2060; J2250; J2270; J3475; J7030; J7040; Q9967

== ENCOUNTER 2021-08-23 18:20 | Emergency (ER) | payer OTHER ==
[~2021-08-23] VITALS: Ht 172.7 cm; Wt 102.1 kg
[~2021-08-23 18:20] MED LIST changes: +HYDR10 PO
[2021-08-23 18:48] LABS: BASOPHILS ABSOLUTE AUTO 0.05 K/mm3 (0.00-0.23); BASOPHILS PERCENT AUTO 1 % (0-2); EOSINOPHILS ABSOLUTE AUTO 0.14 K/mm3 (0.00-0.68); EOSINOPHILS PERCENT AUTO 2 % (0-6); Hematocrit 36.3 % (33.0-51.0); Hemoglobin 10.9 g/dL (11.5-16.0); IMMATURE GRAN ABSOLUTE AUTO 0.03 K/mm3 (0.00-0.10); IMMATURE GRAN PERCENT AUTO 0 % (0-1); LYMPHOCYTES ABSOLUTE AUTO 1.43 K/mm3 (0.84-5.20); LYMPHOCYTES PERCENT AUTO 16 % (21-46); MONOCYTES PERCENT AUTO 8 % (4-13); Mean Corpuscular HGB 24.2 pg (26.0-34.0); Mean Corpuscular Volume 81 fL (80-100); Mean Platelet Volume 10.4 fL (9.1-12.4); NEUTROPHILS ABSOLUTE AUTO 6.49 K/mm3 (1.96-9.15); NEUTROPHILS PERCENT AUTO 73 % (41-73); Platelet Count 212 K/mm3 (150-400); RDW Coefficient Variation 15.9 % (11.7-14.2); RDW Standard Deviation 46.3 fL (35.1-46.3); White Blood Cell Count 8.84 K/mm3 (4.00-11.30)
[2021-08-23 19:05] LABS: International Normalized Ratio 1.12; Prothrombin Time Results 11.7 Sec (9.7-11.5)
[2021-08-23 19:11] LABS: Alanine Aminotransfer (ALT/SGP 16 U/L (12-78); Albumin, Blood 3.4 g/dL (3.4-5.0); Albumin/Globulin Ratio 0.9 (0.8-1.8); Alk Phos 71 U/L (50-136); Anion Gap 3 mmol/L (6-16); Aspartate Aminotrans (AST/SGOT 7 U/L (12-37); Bilirubin, Total 0.7 mg/dL (0.1-1.0); Blood Urea Nitrogen 7 mg/dL (8-24); Bun/Creatinine Ratio 7.4 (12.0-20.0); CO2, Blood 26 mmol/L (21-32); Calcium, Blood 8.6 mg/dL (8.5-10.1); Chloride, Blood 110 mmol/L (98-108); Creatinine, Blood 0.95 mg/dL (0.40-1.00); Globulin, Blood 3.6 g/dL (2.2-4.0); Glomerular Filtration Rate >60 (60-); Glucose, Blood 92 mg/dL (70-99); Potassium, Blood 4.1 mmol/L (3.5-5.5); Sodium, Blood 139 mmol/L (136-145)
== END 2021-08-23 19:51 | disposition home or self-care (01) ==
LOC: ER 18:20
PROVIDERS: Emergency Medicine
DX: G43.109 Migraine with aura, not intractable, without status migrainosus (principal); R56.9 Unspecified convulsions; G83.84 Todd's paralysis (postepileptic); I11.0 Hypertensive heart disease with heart failure; I50.9 Heart failure, unspecified; E78.5 Hyperlipidemia, unspecified; I21.9 Acute myocardial infarction, unspecified; Z88.8 Allergy status to other drugs, medicaments and biological substances; Z88.0 Allergy status to penicillin; Z91.018 Allergy to other foods; Z88.4 Allergy status to anesthetic agent; Z88.6 Allergy status to analgesic agent; Z88.5 Allergy status to narcotic agent; Z79.82 Long term (current) use of aspirin; Z79.899 Other long term (current) drug therapy; Z87.891 Personal history of nicotine dependence; Z87.42 Personal history of other diseases of the female genital tract; Z86.79 Personal history of other diseases of the circulatory system
CPT/HCPCS: 70450; 72125; 80053; 85025; 85610; 85730; 93005; 93010

== ENCOUNTER 2021-08-24 04:36 | Emergency (ER) | payer OTHER ==
[~2021-08-24] VITALS: Ht 167.6 cm; Wt 99.8 kg
== END 2021-08-24 08:29 | disposition home or self-care (01) ==
LOC: ER 04:36
DX: G43.909 Migraine, unspecified, not intractable, without status migrainosus (principal); I11.0 Hypertensive heart disease with heart failure; I50.9 Heart failure, unspecified; I25.10 Atherosclerotic heart disease of native coronary artery without angina pectoris; I25.2 Old myocardial infarction; E78.5 Hyperlipidemia, unspecified; Z88.8 Allergy status to other drugs, medicaments and biological substances; Z88.5 Allergy status to narcotic agent; Z79.899 Other long term (current) drug therapy; Z79.82 Long term (current) use of aspirin; Z79.02 Long term (current) use of antithrombotics/antiplatelets; Z95.5 Presence of coronary angioplasty implant and graft; Z86.73 Personal history of transient ischemic attack (TIA), and cerebral infarction without residual deficits; Z87.891 Personal history of nicotine dependence
CPT/HCPCS: J1100; J1170; J1200; J1790

== ENCOUNTER 2021-09-10 06:51 | Observation (INO) | payer OTHER ==
[~2021-09-10] VITALS: Ht 167.6 cm; Wt 103.1 kg
[2021-09-10 07:10] LABS: Calcium, Ionized (POC) 1.09 mmol/L (1.10-1.46); Chloride (POC) 105 mmol/L (98-108); Glucose (ISTAT POC) 127 mg/dL (70-99); Hemoglobin (POC) 13.3 g/dL (12.0-16.0); Potassium (POC) 4.1 mmol/L (3.5-5.5); Sodium (POC) 140 mmol/L (135-148); Total CO2 (POC) 22 mmol/L (21-32)
[2021-09-10 07:18] LABS: BASOPHILS ABSOLUTE AUTO 0.05 K/mm3 (0.00-0.23); BASOPHILS PERCENT AUTO 0 % (0-2); EOSINOPHILS ABSOLUTE AUTO 0.15 K/mm3 (0.00-0.68); EOSINOPHILS PERCENT AUTO 1 % (0-6); Hematocrit 39.4 % (33.0-51.0); Hemoglobin 11.6 g/dL (11.5-16.0); IMMATURE GRAN ABSOLUTE AUTO 0.05 K/mm3 (0.00-0.10); IMMATURE GRAN PERCENT AUTO 0 % (0-1); LYMPHOCYTES ABSOLUTE AUTO 1.11 K/mm3 (0.84-5.20); LYMPHOCYTES PERCENT AUTO 10 % (21-46); MONOCYTES ABSOLUTE AUTO 0.63 K/mm3 (0.16-1.47); MONOCYTES PERCENT AUTO 6 % (4-13); Mean Corpuscular HGB 23.9 pg (26.0-34.0); Mean Corpuscular HGB Conc 29.4 g/dL (31.5-36.5); Mean Corpuscular Volume 81 fL (80-100); Mean Platelet Volume 9.9 fL (9.1-12.4); NEUTROPHILS ABSOLUTE AUTO 9.28 K/mm3 (1.96-9.15); NEUTROPHILS PERCENT AUTO 83 % (41-73); Platelet Count 240 K/mm3 (150-400); RDW Coefficient Variation 17.1 % (11.7-14.2); RDW Standard Deviation 49.6 fL (35.1-46.3); Red Blood Cell Count 4.85 M/mm3 (3.80-5.20); White Blood Cell Count 11.27 K/mm3 (4.00-11.30)
[2021-09-10 07:26] LABS: International Normalized Ratio 1.08; Prothrombin Time Results 11.3 Sec (9.7-11.5)
[2021-09-10 07:33] LABS: Alanine Aminotransfer (ALT/SGP 17 U/L (12-78); Albumin, Blood 3.9 g/dL (3.4-5.0); Alk Phos 81 U/L (50-136); Anion Gap 7 mmol/L (6-16); Aspartate Aminotrans (AST/SGOT 6 U/L (12-37); Bilirubin, Total 0.9 mg/dL (0.1-1.0); Blood Urea Nitrogen 7 mg/dL (8-24); Bun/Creatinine Ratio 7.1 (12.0-20.0); CO2, Blood 24 mmol/L (21-32); Chloride, Blood 108 mmol/L (98-108); Creatinine, Blood 0.99 mg/dL (0.40-1.00); Glomerular Filtration Rate >60 (60-); Glucose, Blood 128 mg/dL (70-99); Magnesium, Blood 2.5 mg/dL (1.6-2.4); Potassium, Blood 4.1 mmol/L (3.5-5.5); Sodium, Blood 139 mmol/L (136-145); Total Protein, Blood 7.9 g/dL (6.4-8.2); Troponin I <0.015 ng/mL (0.000-0.040)
[2021-09-10] MEDS ORDERED: PRASUGREL HCL10 MG PO (10:28)
[2021-09-10 12:02] LABS: U Amphetamine Screen Not Detected; U Barbituate Screen Not Detected; U Benzodiazapine Screen Not Detected; U Buprenorphine Screen Not Detected; U Cannabinoids Screen Not Detected; U Cocaine Screen Not Detected; U Methadone Screen Not Detected; U Methamphetamine Screen Not Detected; U Opiates Screen DETECTED; U Oxycodone Screen DETECTED; U Phencyclidine Screen Not Detected; U Propoxyphene Screen Not Detected
--- NOTE | 2021-09-10 17:40 | NUR ---
SHIFT SUMMARY PT HAS BEEN RESTING IN BED SINCE ADMIT, SLEEPING OFF AND ON. PT C/O 05/25 CHEST PAIN MILDLY RELIEVED WITH MORPHINE TO 02/22. PT HAS BEEN COOPERATIVE WITH CARES, CALLS APPROPRIATELY. SBP 139-148 SINCE ARRIVAL, SPO2 >90% ON RA, PULSE 60'S-70'S NSR, RR 14-20. NO ACUTE CHANGES TO CURRENT CONDITION.
--- NOTE | 2021-09-10 23:09 | NUR ---
Assumed care of pt at 1900, a/ox4. Laying in bed and watching TV. Reports CP every 1-2hrs, medicated per emar, but pt not receptive to nonpharm solutions. No tele changes t/o shift. SR 68. Resp WNL. Will update as changes occur.
[2021-09-11 06:23] LABS: Hematocrit 34.4 % (33.0-51.0); Hemoglobin 10.2 g/dL (11.5-16.0); Mean Corpuscular HGB 24.3 pg (26.0-34.0); Mean Corpuscular HGB Conc 29.7 g/dL (31.5-36.5); Mean Corpuscular Volume 82 fL (80-100); Mean Platelet Volume 10.6 fL (9.1-12.4); Platelet Count 193 K/mm3 (150-400); RDW Coefficient Variation 16.8 % (11.7-14.2); RDW Standard Deviation 49.9 fL (35.1-46.3); White Blood Cell Count 9.59 K/mm3 (4.00-11.30)
[2021-09-11 06:37] LABS: Bun/Creatinine Ratio 10.5 (12.0-20.0); Calcium, Blood 8.9 mg/dL (8.5-10.1); Creatinine, Blood 1.05 mg/dL (0.40-1.00); Magnesium, Blood 2.5 mg/dL (1.6-2.4); Potassium, Blood 3.7 mmol/L (3.5-5.5)
[2021-09-11] MEDS ORDERED: METO10 PO (18:13)
--- NOTE | 2021-09-11 18:30 | NUR ---
DISCHARGE NOTE PT BELONGINGS AND DISCHARGE INSTRUCTIONS IN PT'S POSSESSION AT TIME OF TRANSPORT. PT TRANSPORTED VIA WHEEL
--- NOTE | 2021-09-11 18:39 | NUR ---
SHIFT SUMMARY PT WAS TRANSPORTED VIA WHEELCHAIR TO PERSONAL VEHICLE. DISCHARGE INSTRUCTIONS AND BELONGINGS IN PT POSSESSION AT TIME OF TRANSPORT. ALL QUESTIONS AND CONCERNS WERE ADDRESSED PRIOR TO TRANSPORT. PT STATES NO FURTHER NEEDS AT THIS TIME.
== END 2021-09-11 18:30 | disposition home or self-care (01) ==
LOC: ER 06:51 → PCU 06:52 → ICUW 06:52 → PCU 11:21
PROVIDERS: Nurse Practitioner Acute Care; Student in an Organized Health Care Education/Training Program; ADMIT Hospitalist
DX: I25.110 Atherosclerotic heart disease of native coronary artery with unstable angina pectoris (principal); I11.0 Hypertensive heart disease with heart failure; I50.9 Heart failure, unspecified; E78.5 Hyperlipidemia, unspecified; G89.4 Chronic pain syndrome; I25.2 Old myocardial infarction; G43.909 Migraine, unspecified, not intractable, without status migrainosus; E66.01 Morbid (severe) obesity due to excess calories; Z68.35 Body mass index [BMI] 35.0-35.9, adult; Z86.73 Personal history of transient ischemic attack (TIA), and cerebral infarction without residual deficits; Z95.5 Presence of coronary angioplasty implant and graft; Z95.1 Presence of aortocoronary bypass graft; Z88.0 Allergy status to penicillin; Z88.5 Allergy status to narcotic agent; Z88.8 Allergy status to other drugs, medicaments and biological substances; Z91.018 Allergy to other foods; Z87.891 Personal history of nicotine dependence
CPT/HCPCS: 36415; 71045; 78452; 80047; 80048; 80053; 83735; 83880; 84484; 85014; 85025; 85027; 85520; 85610; 86850; 86900; 86901; 93005; 93010; 93017; 93308; 93321; 96365; 96366; 96375; 96376; 99285-25; A9270; A9500; G0378; J0706; J1170; J1644; J1940; J2270; J2785

== ENCOUNTER 2022-02-23 17:07 | Emergency (ER) | payer OTHER ==
[~2022-02-23] VITALS: Ht 177.8 cm; Wt 99.8 kg
[~2022-02-23 17:07] MED LIST changes: +METO10 PO; +PRASUGREL HCL10 MG PO
[2022-02-23] MEDS ORDERED: BRILINTA90 M7 PO (17:29)
[2022-02-23] MEDS ORDERED: RANOLAZINE ER500 M2 PO (17:31)
[2022-02-23] MEDS ORDERED: AMLODIPINE BESYL5 MG PO (17:31)
[2022-02-23 17:38] LABS: BASOPHILS ABSOLUTE AUTO 0.04 K/mm3 (0.00-0.23); BASOPHILS PERCENT AUTO 0 % (0-2); EOSINOPHILS ABSOLUTE AUTO 0.14 K/mm3 (0.00-0.68); EOSINOPHILS PERCENT AUTO 2 % (0-6); Hematocrit 39.5 % (33.0-51.0); IMMATURE GRAN ABSOLUTE AUTO 0.03 K/mm3 (0.00-0.10); IMMATURE GRAN PERCENT AUTO 0 % (0-1); LYMPHOCYTES ABSOLUTE AUTO 1.19 K/mm3 (0.84-5.20); LYMPHOCYTES PERCENT AUTO 13 % (21-46); MONOCYTES ABSOLUTE AUTO 0.51 K/mm3 (0.16-1.47); MONOCYTES PERCENT AUTO 6 % (4-13); Mean Corpuscular HGB 24.1 pg (26.0-34.0); Mean Corpuscular HGB Conc 30.4 g/dL (31.5-36.5); Mean Corpuscular Volume 79 fL (80-100); Mean Platelet Volume 9.7 fL (9.1-12.4); NEUTROPHILS ABSOLUTE AUTO 7.22 K/mm3 (1.96-9.15); NEUTROPHILS PERCENT AUTO 79 % (41-73); Platelet Count 283 K/mm3 (150-400); RDW Standard Deviation 50.6 fL (35.1-46.3); Red Blood Cell Count 4.98 M/mm3 (3.80-5.20); White Blood Cell Count 9.13 K/mm3 (4.00-11.30)
[2022-02-23 17:49] LABS: Albumin, Blood 3.9 g/dL (3.4-5.0); Bilirubin, Total 0.4 mg/dL (0.1-1.0); Bun/Creatinine Ratio 7.1 (12.0-20.0); Calcium, Blood 9.1 mg/dL (8.5-10.1); Creatinine, Blood 0.98 mg/dL (0.40-1.00); Globulin, Blood 3.9 g/dL (2.2-4.0); Potassium, Blood 3.2 mmol/L (3.5-5.5); Total Protein, Blood 7.8 g/dL (6.4-8.2)
== END 2022-02-23 21:30 | disposition home or self-care (01) ==
LOC: ER 17:07
PROVIDERS: Emergency Medicine
DX: R51.9 Headache, unspecified (principal); R53.1 Weakness; I11.0 Hypertensive heart disease with heart failure; I50.9 Heart failure, unspecified; I25.10 Atherosclerotic heart disease of native coronary artery without angina pectoris; I25.2 Old myocardial infarction; E78.5 Hyperlipidemia, unspecified; Z95.1 Presence of aortocoronary bypass graft; Z79.899 Other long term (current) drug therapy; Z79.82 Long term (current) use of aspirin; Z88.4 Allergy status to anesthetic agent; Z88.5 Allergy status to narcotic agent; Z91.018 Allergy to other foods; Z88.0 Allergy status to penicillin; Z88.8 Allergy status to other drugs, medicaments and biological substances
CPT/HCPCS: 70450; 70496; 70498; 71045; 80053; 82947; 84484; 85025; 93005; 93010; 96365; 96375; 96376; 99285-25; A9270; J1100; J1170; J2060; J2765; J3475; Q9967

== ENCOUNTER 2023-10-06 04:13 | Emergency (ER) | payer OTHER ==
[~2023-10-06] VITALS: Ht 167.6 cm; Wt 72.6 kg
[~2023-10-06 04:13] MED LIST changes: +BRILINTA90 M7 PO; +RANOLAZINE ER500 M2 PO
[2023-10-06 05:23] LABS: Influenza A, PCR NEGATIVE (NEGATIVE); Influenza B, PCR NEGATIVE (NEGATIVE); Resp Syncytial Virus, PCR NEGATIVE (NEGATIVE); SARS-Cov-2 (COVID-19) PCR, MMC NEGATIVE (NEGATIVE)
[2023-10-06 06:08] LABS: BASOPHILS ABSOLUTE AUTO 0.01 K/mm3 (0.00-0.23); BASOPHILS PERCENT AUTO 0 % (0-2); EOSINOPHILS PERCENT AUTO 0 % (0-6); Hematocrit 38.9 % (33.0-51.0); Hemoglobin 10.7 g/dL (11.5-16.0); IMMATURE GRAN ABSOLUTE AUTO 0.04 K/mm3 (0.00-0.10); IMMATURE GRAN PERCENT AUTO 1 % (0-1); LYMPHOCYTES ABSOLUTE AUTO 0.88 K/mm3 (0.84-5.20); LYMPHOCYTES PERCENT AUTO 14 % (21-46); MONOCYTES ABSOLUTE AUTO 0.14 K/mm3 (0.16-1.47); MONOCYTES PERCENT AUTO 2 % (4-13); Mean Corpuscular HGB 20.5 pg (26.0-34.0); Mean Corpuscular HGB Conc 27.5 g/dL (31.5-36.5); Mean Corpuscular Volume 75 fL (80-100); NEUTROPHILS ABSOLUTE AUTO 5.17 K/mm3 (1.96-9.15); NEUTROPHILS PERCENT AUTO 83 % (41-73); Platelet Count 349 K/mm3 (150-400); RDW Coefficient Variation 20.7 % (11.7-14.2); RDW Standard Deviation 52.9 fL (35.1-46.3); Red Blood Cell Count 5.22 M/mm3 (3.80-5.20); White Blood Cell Count 6.24 K/mm3 (4.00-11.30)
[2023-10-06] MEDS ORDERED: Ondansetron HCl 2 MG / ML 2ML Vial IV ONE (06:30)
[2023-10-06] MEDS ORDERED: NS 1,000 ML IV SCH (06:30)
[2023-10-06] MEDS ORDERED: Loperamide HCl 2 MG Cap PO ONE (06:30)
[2023-10-06 06:46] LABS: Albumin, Blood 3.7 g/dL (3.4-5.0); Albumin/Globulin Ratio 0.8 (0.8-1.8); Bilirubin, Total 0.7 mg/dL (0.1-1.0); Bun/Creatinine Ratio 12.2 (12.0-20.0); Calcium, Blood 8.9 mg/dL (8.5-10.1); Creatinine, Blood 0.9 mg/dL (0.40-1.00); Globulin, Blood 4.9 g/dL (2.2-4.0); Potassium, Blood 3.8 mmol/L (3.5-5.5); Total Protein, Blood 8.6 g/dL (6.4-8.2)
[2023-10-06] MEDS ORDERED: Furosemide 10 MG / ML 2ML Vial IV ONE (07:10)
[2023-10-06] MEDS ORDERED: OxyCODONE 10/Acetamin 325 TABLET PO ONE (07:25)
[2023-10-06] MEDS ORDERED: LOPE2C PO (08:23)
[2023-10-06] MEDS ORDERED: ONDA4ODT MM (08:23)
[2023-10-06 08:30] VITALS: BP 132/60
== END 2023-10-06 08:45 | disposition home or self-care (01) ==
LOC: ER 04:13
PROVIDERS: Emergency Medicine
DX: R11.2 Nausea with vomiting, unspecified (principal); R19.7 Diarrhea, unspecified; I11.0 Hypertensive heart disease with heart failure; I50.9 Heart failure, unspecified; I25.10 Atherosclerotic heart disease of native coronary artery without angina pectoris; G89.29 Other chronic pain; F11.20 Opioid dependence, uncomplicated; Z86.711 Personal history of pulmonary embolism; Z87.891 Personal history of nicotine dependence; I25.2 Old myocardial infarction; K21.9 Gastro-esophageal reflux disease without esophagitis; E78.5 Hyperlipidemia, unspecified; G43.909 Migraine, unspecified, not intractable, without status migrainosus; Z95.1 Presence of aortocoronary bypass graft
CPT/HCPCS: 0241U; 71045; 80053; 83880; 85025; 85730; 96374; 99284-25; A9270; J1940; J2405